=== PATIENT | male | born 1945 | race Caucasian/White ===

== ENCOUNTER → 2017-08-11 | Outpatient (CLI) | payer MEDICARE ==
[2017-08-11 13:18] LABS: Blood Urea Nitrogen 21 mg/dL (9-20); Non-African American GFR(MDRD) 55 (>60 ml/min/1.73 sqM)
--- NOTE | 2017-08-11 14:59 | CT ---
EXAMINATION TYPE: CT abdomen pelvis w con DATE OF EXAM: 08/11/2017 COMPARISON: NONE HISTORY: Patient complains of left flank pain. CT DLP: 1638 mGycm Automated exposure control for dose reduction was used. TECHNIQUE: Helical acquisition of images was performed from the lung bases through the pelvis. CONTRAST: Performed with Oral Contrast and with IV Contrast, patient injected with 80 mL of Visipaque 320. FINDINGS: LUNG BASES: Subpleural fat is present as well as linear pleural parenchymal scarring within the lingu la. LIVER/GB: Diffuse hypoattenuation of the hepatic parenchyma most commonly relates to hepatic steatosi s and limits evaluation for underlying hepatic masses. No discrete hepatic mass or intrahepatic bilia ry ductal dilatation is seen. PANCREAS: There is mild diffuse pancreatic atrophy without pancreatic ductal dilatation. SPLEEN: No significant abnormality is seen. Small splenule is present adjacent to the [place] spleen. Spleen measures 12.6 cm in craniocaudal dimension, within normal limits. ADRENALS: No significant abnormality is seen. KIDNEYS: No significant abnormality is seen. FREE AIR: No free air is visualized. RETROPERITONEAL ADENOPATHY: None visualized REPRODUCTIVE ORGANS: No significant abnormality is seen URINARY BLADDER: Urachal remnant is incidentally identified. Urinary bladder is otherwise unremarkab le. PELVIC ADENOPATHY: Mildly enlarged superficial inguinal lymph nodes are seen although they maintain normal fatty gabe measuring up to 1.2 cm on the left and 1.0 cm on the right OSSEOUS STRUCTURES: Multilevel moderate degenerative changes are appreciated the visualized thoracolu mbar spine. BOWEL: Scattered diverticula are seen within the colon without pericolonic fat stranding. Bowel is n ot enlarged. OTHER: Bilateral fat filled inguinal hernias are present. IMPRESSION: 1. NO CT FINDING TO CORRELATE WITH THE PATIENT'S LEFT-SIDED FLANK PAIN. 2. FEW SCATTERED COLONIC DIVERTICULA WITHOUT PERICOLONIC FAT STRANDING. 3. MILDLY ENLARGED NONSPECIFIC SUPERFICIAL INGUINAL LYMPH NODES OF LOW SUSPICION THEY MAINTAIN THE IR FATTY HILUM.
== END | disposition home or self-care (01) ==
LOC: RADCTMAIN 12:40
PROVIDERS: ATTEND Internal Medicine
DX: K57.30 Diverticulosis of large intestine without perforation or abscess without bleeding (principal)
CPT/HCPCS: 82565; 84520; 74177; 36415; Q9967

== ENCOUNTER → 2019-09-09 | Outpatient (CLI) | payer MEDICARE ==
--- NOTE | 2019-09-09 09:23 | US ---
EXAMINATION TYPE: US venous doppler duplex LE DATE OF EXAM: 09/09/2019 9:00 AM COMPARISON: NONE CLINICAL HISTORY: M79.661,R22.41,I82.40 DVT. SIDE PERFORMED: Bilateral TECHNIQUE: The lower extremity deep venous system is examined utilizing real time linear array sonog jayna with graded compression, doppler sonography and color-flow sonography. VESSELS IMAGED: External Iliac Vein (EIV) Common Femoral Vein Deep Femoral Vein Greater Saphenous Vein * Femoral Vein Popliteal Vein Small Saphenous Vein * Proximal Calf Veins (* superficial vessels) Large body habitus with extensive swelling Right Leg: Negative for DVT Left Leg: Negative for DVT IMPRESSION: No evidence for DVT at this time.
== END | disposition home or self-care (01) ==
LOC: RADUSWWP 08:04
PROVIDERS: ATTEND Internal Medicine
DX: M79.661 Pain in right lower leg (principal); R22.41 Localized swelling, mass and lump, right lower limb; I82.403 Acute embolism and thrombosis of unspecified deep veins of lower extremity, bilateral
CPT/HCPCS: 93970

== ENCOUNTER 2022-01-28 06:35 | Emergency (ER) | payer MEDICARE ==
[2022-01-28 06:39] VITALS: RESP 18; TEMP 99.8
[2022-01-28] MEDS ORDERED: ONDANSETRON 4 MG/2 ML VIAL IVP STA (06:53)
[2022-01-28] MEDS ORDERED: HYDROmorphone 0.5 MG/0.5 ML SYRINGE IVP STA ×2 (06:53→09:07)
[2022-01-28] MEDS ORDERED: methylPREDNISolone SOD SUCCI 125 MG/2 ML VIAL IV STA (06:53)
[2022-01-28] MEDS ORDERED: KETOROLAC 15 MG/ML 1 ML VIAL IVP STA (06:53)
--- NOTE | 2022-01-28 06:57 | ED ---
Extremity Problem HPI - General Chief complaint: Extremity Problem,Nontraumatic Stated complaint: RT leg pain and swelling Time Seen by Provider: 01/28/22 06:42 Source: patient, RN notes reviewed Mode of arrival: wheelchair Limitations: no limitations - History of Present Illness Initial comments: This a 76-year-old male presents emergency Department chief complaint of severe right foot pain. Patient states started Friday had grass mostly in to Friday till now. Patient states his pain is diffuse but originates at the first MTP region. Patient had prior foot surgery for gout in the past. Patient denies any trauma. Denies any open lesions or sores. Patient states that is very unbearable to touch it or put any weight on his right foot. Patient denies any paresthesias that are new. Patient denies fevers or chills. - Related Data Home Medications Medication Instructions Recorded Confirmed Aspirin EC [Ecotrin] 325 mg PO DAILY 06/20/16 01/28/22 Atorvastatin [Lipitor] 20 mg PO DAILY 06/20/16 01/28/22 Sertraline [Zoloft] 50 mg PO DAILY 06/20/16 01/28/22 Tamsulosin HCl [Flomax] 0.4 mg PO DAILY 06/20/16 01/28/22 atenoloL 25 mg PO BID 06/20/16 01/28/22 Insulin Detemir (Levemir) [Levemir] 46 unit SQ HS 10/24/21 01/28/22 Meloxicam [Mobic] 7.5 mg PO DAILY 10/24/21 01/28/22 Multivitamins, Thera [Multivitamin 1 tab PO DAILY 10/24/21 01/28/22 (formulary)] Quinapril HCl [Accupril] 5 mg PO DAILY 10/24/21 01/28/22 Triamterene-Hctz 37.5-25Mg 1 cap PO DAILY 10/24/21 01/28/22 [Dyazide 37.5-25 Capsule] Vascepa 1gm 2 gm PO BID 10/24/21 01/28/22 Vitamin E 400 unit PO DAILY 10/24/21 01/28/22 metFORMIN HCL ER [Glucophage XR] 500 mg PO BID 10/24/21 01/28/22 Dapagliflozin Propanediol [Farxiga] 10 mg PO DAILY 01/28/22 01/28/22 Levothyroxine Sodium [Synthroid] 150 mcg PO DAILY 01/28/22 01/28/22 Previous Rx's Medication Instructions Recorded Pantoprazole [Protonix] 40 mg PO DAILY #30 tablet. 08/08/16 Folic Acid 1 mg PO DAILY #0 tab 10/29/21 HYDROcodone/APAP 5-325MG [[place] 5] 1 each PO Q6HR PRN #12 tab 01/28/22 Allergies Allergy/AdvReac Type Severity Reaction Status Date / Time No Known Allergies Allergy Verified 01/28/22 06:39 Review of Systems ROS Statement: Those systems with pertinent positive or pertinent negative responses have been documented in the HPI. ROS Other: All systems not noted in ROS Statement are negative. Past Medical History Past Medical History: Coronary Artery Disease (CAD), Chest Pain / Angina, Dementia, Diabetes Mellitus, Deep Vein Thrombosis (DVT), GERD/Reflux, GI Bleed, Hyperlipidemia, Hypertension, Musculoskeletal Disorder, Neurologic Disorder, Pr ostate Disorder, Thyroid Disorder, Vascular Disorder Additional Past Medical History / Comment(s): Insulin-dependent diabetes mellitus, peripheral vascular disease, chronic sinus disease, gout, previous bouts of GI bleed, questionable history of multiple sclerosis although the patient has not demonstrated any neurologic deficits, obesity, hypothyroidism, hyperlipidemia Other HX: IDDM, pt told many yrs ago he had multiple sclerosis but has had no symptoms in years, PVD, sinus problems, gout, hematuria related to coumadin, GI bleed with transfusion r/t coumadin, cramps to bilateral lower legs frequently, DVT to L lower leg in 2005, BPH, hypothyroid, L arm fx in past. History of Any Multi-Drug Resistant Organisms: None Reported Past Surgical History: Back Surgery, Heart Catheterization With Stent, Orthopedic Surgery Additional Past Surgical History / Comment(s): 2001 cardiac cath with stent, EGD/colonoscopy with benign polyps, hemorrhoid surgery x 2, low back surgery, implants bilateral great toes, L knee arthroscopy, R finger amp 1st joint. Past Anesthesia/Blood Transfusion Reactions: No Reported Reaction Additional Past Anesthesia/Blood Transfusion Reaction / Comment(s): Pt has received blood in past without reaction. Date of Last Stent Placement:: 2001 Past Psychological History: Anxiety, Depression Smoking Status: Current every day smoker Past Alcohol Use History: Occasional Past Drug Use History: None Reported - Past Family History Father Family Medical History: No Reported History Additional Family Medical History / Comment(s): Thierry due to a fall when he was 56 yrs old. Mother Family Medical History: Dementia Additional Family Medical History / Comment(s): Mother lived to be 99yrs old. General Exam General appearance: alert, in no apparent distress Head exam: Present: atraumatic, normocephalic, normal inspection Neck exam: Present: normal inspection. Absent: tenderness, meningismus, lymphadenopathy Respiratory exam: Present: normal lung sounds bilaterally. Absent: respiratory distress, wheezes, rales, rhonchi, stridor Cardiovascular Exam: Present: regular rate, normal rhythm, normal heart sounds. Absent: systolic murmur, diastolic murmur, rubs, gallop, clicks Extremities exam: Present: other (Right foot there is diffuse tenderness, greatest with the first MTP region there is old surgical scar noted, neurovascular intact there is old male avulsion of the first digit, mild increasing warmth mild erythema). Absent: calf tenderness Neurological exam: Present: alert Skin exam: Present: warm, dry, intact, normal color. Absent: rash Course Vital Signs 01/28/22 01/28/22 06:37 09:00 Temperature 99.8 F H Pulse Rate 98 92 Respiratory 18 18 Rate Blood Pressure 129/67 117/54 O2 Sat by Pulse 98 94 L Oximetry Medical Decision Making - Medical Decision Making 76-year-old presented for fall pain. There was concern for infection versus gout or other causes for pain. I did have. Labs and x-ray. There is not an elevated uric acid, there is no obvious signs of infection though patient did guerra ve continuous pain I did contact orthopedics on-call who came and evaluated the patient and feel that he has Charcot foot from being a diabetic. They felt that there was not much offer for and they do not feel this is related to an infection. I did offer patient admission for pain control and further evaluation patient states first go home who provided foot surgery and does not remember his prior foot surgeon. - Lab Data Result diagrams: 01/28/22 07:03 01/28/22 07:03 Lab Results 01/28/22 01/28/22 Range/Units 07:03 07:03 WBC 11.5 H (3.8-10.6) k/uL RBC 6.00 H (4.30-5.90) m/uL Hgb 17.0 (13.0-17.5) gm/dL Hct 51.4 (39.0-53.0) % MCV 85.7 (80.0-100.0) fL MCH 28.4 (25.0-35.0) pg MCHC 33.1 (31.0-37.0) g/dL RDW 14.7 (11.5-15.5) % Plt Count 157 (150-450) k/uL MPV 9.3 Neutrophils % 80 % Lymphocytes % 11 % Monocytes % 7 % Eosinophils % 1 % Basophils % 0 % Neutrophils # 9.1 H (1.3-7.7) k/uL Lymphocytes # 1.3 (1.0-4.8) k/uL Monocytes # 0.7 (0-1.0) k/uL Eosinophils # 0.1 (0-0.7) k/uL Basophils # 0.0 (0-0.2) k/uL ESR 12 (0-15) mm/hr Sodium 136 L (137-145) mmol/L Potassium 4.1 (3.5-5.1) mmol/L Chloride 105 (98-107) mmol/L Carbon Dioxide 18 L (22-30) mmol/L Anion Gap 13 mmol/L BUN 27 H (9-20) mg/dL Creatinine 1.33 H (0.66-1.25) mg/dL Est GFR (CKD-EPI)AfAm 60 (>60 ml/min/1.73 sqM) Est GFR (CKD-EPI)NonAf 52 (>60 ml/min/1.73 sqM) Glucose 172 H (74-99) mg/dL Uric Acid 8.1 (3.5-8.5) mg/dL Calcium 9.6 (8.4-10.2) mg/dL Total Bilirubin 1.1 (0.2-1.3) mg/dL AST 28 (17-59) U/L ALT 21 (4-49) U/L Alkaline Phosphatase 129 H (38-126) U/L C-Reactive Protein 7.7 H (<1.0) mg/dL Total Protein 7.4 (6.3-8.2) g/dL Albumin 4.3 (3.5-5.0) g/dL Disposition Clinical Impression: Charcot's joint of foot, Foot pain Disposition: HOME SELF-CARE Condition: Stable Instructions (If sedation given, give patient instructions): Arthralgia (ED) Additional Instructions: Please return to the Emergency Department if symptoms worsen or any other concerns. Prescriptions: HYDROcodone/APAP 5-325MG [[place] 5] 1 each PO Q6HR PRN #12 tab PRN Reason: Pain Is patient prescribed a controlled substance at d/c from ED?: Yes When asked, does pt state using other controlled substances?: No If prescribed controlled substance>3 days was MAPS reviewed?: Prescribed <3 Days If opioid is for acute pain is fill amount 7 days or less?: Yes If Rx opioid, was Start Talking consent form obtained?: Yes Referrals: Neri Garg MD [Primary Care Provider] - 1-2 days Charli Ramos DPM [Doctor of Osteopathic Medicine] - 1-2 days Time of Disposition: 10:28
[2022-01-28 07:19] LABS: Basophils % (A) 0 %; Eosinophils # (A) 0.1 k/uL (0-0.7); Eosinophils % (A) 1 %; HCT 51.4 % (39.0-53.0); Lymphocytes # (A) 1.3 k/uL (1.0-4.8); Lymphocytes % (A) 11 %; MCH 28.4 pg (25.0-35.0); MCHC 33.1 g/dL (31.0-37.0); MCV 85.7 fL (80.0-100.0); Mean Platelet Volume 9.3; Monocytes # (A) 0.7 k/uL (0-1.0); Monocytes % (A) 7 %; Neutrophils # (A) 9.1 k/uL (1.3-7.7); Neutrophils % (A) 80 %; Platelet Count 157 k/uL (150-450); RDW 14.7 % (11.5-15.5); WBC 11.5 k/uL (3.8-10.6)
[2022-01-28 07:22] LABS: Albumin 4.3 g/dL (3.5-5.0); Calcium 9.6 mg/dL (8.4-10.2); Potassium 4.1 mmol/L (3.5-5.1); Total Bilirubin 1.1 mg/dL (0.2-1.3); Total Protein 7.4 g/dL (6.3-8.2); Uric Acid 8.1 mg/dL (3.5-8.5)
[2022-01-28 08:08] LABS: Erythrocyte Sedimentation Rate 12 mm/hr (0-15)
--- NOTE | 2022-01-28 08:11 | XR ---
EXAMINATION TYPE: XR foot complete RT DATE OF EXAM: 01/28/2022 COMPARISON: NONE HISTORY: 76-year-old male plantar foot pain radiating posteriorly to the ankle and calf. TECHNIQUE: 3 views FINDINGS: Prosthesis at the first MTP joint noted. No significant periprosthetic lucency. Helton's toe. Osteope kaylee. Large os peroneum. There is small plantar heel spur with some subtle calcifications noted at the origin of the plantar f ascia. It is ossification at the distal Achilles tendon measuring 2.6 x 0.4 cm. No acute fracture, subluxation, dislocation. IMPRESSION: 1. Some faint calcifications at the origin of the plantar fascia probably reflecting chronic traction injury or plantar fasciitis. Clinically correlate. 2. Additional ossification at the distal Achilles tendon measuring 2.6 x 0.4 cm. Findings compatible with chronic tendinopathy and likely previous partial tear. 3. First MTP joint prosthesis noted. 4. No acute osseous abnormality seen.
[2022-01-28 08:44] LABS: C Reactive Protein 7.7 mg/dL (<1.0)
[2022-01-28 09:07] VITALS: PULSE 92
[2022-01-28] MEDS ORDERED: predniSONE 20 MG TAB PO STA (11:25)
[2022-01-28] MEDS ORDERED: HYDROcodone/APAP 5-325MG 1 EACH TAB PO STA (11:28)
[2022-01-28 12:21] VITALS: BP 122/55
--- NOTE | 2022-01-28 12:59 | P.CONS ---
History of Present Illness - Reason for Consult Consult date: 01/28/22 foot pain Requesting physician: Maximilian Arias - Chief Complaint foot pain - History of Present Illness Patient is a 76 yo CM with a hx of DM 2, MS, and Gout who presented to the emergency department with complaints of right foot pain. His foot pain started on Friday and worsened over the weeked. He has not started of stopped any medications recently. He has a significant hx of gout and has required surgery for this in the past about 20 years ago. Has not been ambulating due to pain. No fevers or chills. His surgars have been 150-170s but rellatively well. He denies any hx of metal in his foot. He deneis any recent injury to the foot. Gen: Alert, distress only when touching the foot, CV: S1S2 reg wtihout murmur Lungs: CTA b/L Ext: right foot with edema, erythem at the MTP joint of the great toe dorsal plae. Intact light touch, able to flex and extend toes without difficulty, range of motion intact at that ankle joint. Patient extremity painful to the lgihtest touch at any location on the foot. Calf without warmth or erythema. Case reviewed and discussed with primary care physician Dr. Garg prior to evaluating the patient. Assessment: Gout DM MS Neuropathy Discussed with patient and family member at bedside that this seems like a gout flair to me. At this time a suggest an additional dose of steroid primry to leaving the ED and a course of NSAIDs (Cholacine ) and follow-up with PCP later this week. Discussed with ED provider and suggest possible crutches if too painful to ambulate. They have also suggested follow-up with Dr. Ramos of Podiatry. PAtient was also evaluated by ortho in the ED who agreed with probable gout or charcot foot. Past Medical History Past Medical History: Coronary Artery Disease (CAD), Chest Pain / Angina, Dementia, Diabetes Mellitus, Deep Vein Thrombosis (DVT), GERD/Reflux, GI Bleed, Hyperlipidemia, Hypertension, Musculoskeletal Disorder, Neurologic Disorder, Prostate Disorder, Thyroid Disorder, Vascular Disorder Additional Past Medical History / Comment(s): Insulin-dependent diabetes mellitus, peripheral vascular disease, chronic sinus disease, gout, previous bouts of GI bleed, questionable history of multiple sclerosis although the patient has not demonstrated any neurologic deficits, obesity, hypothyroidism, hyperlipidemia Other HX: IDDM, pt told many yrs ago he had multiple sclerosis but has had no symptoms in years, PVD, sinus problems, gout, hematuria related to coumadin, GI bleed with transfusion r/t coumadin, cramps to bilateral lower legs frequently, DVT to L lower leg in 2005, BPH, hypothyroid, L arm fx in past. History of Any Multi-Drug Resistant Organisms: None Reported Past Surgical History: Back Surgery, Heart Catheterization With Stent, Orthopedic Surgery Additional Past Surgical History / Comment(s): 2001 cardiac cath with stent, EGD/colonoscopy with benign polyps, hemorrhoid surgery x 2, low back surgery, implants bilateral great toes, L knee arthroscopy, R finger amp 1st joint. Past Anesthesia/Blood Transfusion Reactions: No Reported Reaction Additional Past Anesthesia/Blood Transfusion Reaction / Comm: Pt has received blood in past without reaction. Date of Last Stent Placement:: 2001 Past Psychological History: Anxiety, Depression Smoking Status: Current every day smoker Past Alcohol Use History: Occasional Past Drug Use History: None Reported - Past Family History Father Family Medical History: No Reported History Additional Family Medical History / Comment(s): Thierry due to a fall when he was 56 yrs old. Mother Family Medical History: Dementia Additional Family Medical History / Comment(s): Mother lived to be 99yrs old. Medications and Allergies Home Medications Medication Instructions Recorded Confirmed Type Aspirin EC [Ecotrin] 325 mg PO DAILY 06/20/16 01/28/22 History Atorvastatin [Lipitor] 20 mg PO DAILY 06/20/16 01/28/22 History Sertraline [Zoloft] 50 mg PO DAILY 06/20/16 01/28/22 History Tamsulosin HCl [Flomax] 0.4 mg PO DAILY 06/20/16 01/28/22 History atenoloL 25 mg PO BID 06/20/16 01/28/22 History Pantoprazole [Protonix] 40 mg PO DAILY #30 tablet. 08/08/16 01/28/22 Rx Insulin Detemir (Levemir) [Levemir] 46 unit SQ HS 10/24/21 01/28/22 History Meloxicam [Mobic] 7.5 mg PO DAILY 10/24/21 01/28/22 History Multivitamins, Thera [Multivitamin 1 tab PO DAILY 10/24/21 01/28/22 History (formulary)] Quinapril HCl [Accupril] 5 mg PO DAILY 10/24/21 01/28/22 History Triamterene-Hctz 37.5-25Mg 1 cap PO DAILY 10/24/21 01/28/22 History [Dyazide 37.5-25 Capsule] Vascepa 1gm 2 gm PO BID 10/24/21 01/28/22 History Vitamin E 400 unit PO DAILY 10/24/21 01/28/22 History metFORMIN HCL ER [Glucophage XR] 500 mg PO BID 10/24/21 01/28/22 History Folic Acid 1 mg PO DAILY #0 tab 10/29/21 01/28/22 Rx Dapagliflozin Propanediol [Farxiga] 10 mg PO DAILY 01/28/22 01/28/22 History HYDROcodone/APAP 5-325MG [[place] 5] 1 each PO Q6HR PRN #12 tab 01/28/22 Rx Levothyroxine Sodium [Synthroid] 150 mcg PO DAILY 01/28/22 01/28/22 History Allergies Allergy/AdvReac Type Severity Reaction Status Date / Time No Known Allergies Allergy Verified 01/28/22 06:39 Physical Exam Osteopathic Statement: *. No significant issues noted on an osteopathic structural exam other than those noted in the History and Physical/Consult. Vitals: Vital Signs Temp Pulse Resp BP Pulse Ox 01/28/22 09:00 92 18 117/54 94 L 01/28/22 06:37 99.8 F H 98 18 129/67 98 Intake and Output 01/27/22 01/28/22 01/28/22 22:59 06:59 14:59 Other: Weight 100.698 kg Results CBC & Chem 7: 01/28/22 07:03 01/28/22 07:03 Labs: Abnormal Lab Results - Last 24 Hours (Table) 01/28/22 01/28/22 Range/Units 07:03 07:03 WBC 11.5 H (3.8-10.6) k/uL RBC 6.00 H (4.30-5.90) m/uL Neutrophils # 9.1 H (1.3-7.7) k/uL Sodium 136 L (137-145) mmol/L Carbon Dioxide 18 L (22-30) mmol/L BUN 27 H (9-20) mg/dL Creatinine 1.33 H (0.66-1.25) mg/dL Glucose 172 H (74-99) mg/dL Alkaline Phosphatase 129 H (38-126) U/L C-Reactive Protein 7.7 H (<1.0) mg/dL
== END 2022-01-28 11:55 | disposition home or self-care (01) ==
LOC: EC 06:35
DX: E11.610 Type 2 diabetes mellitus with diabetic neuropathic arthropathy (principal); E11.51 Type 2 diabetes mellitus with diabetic peripheral angiopathy without gangrene; I10 Essential (primary) hypertension; E78.5 Hyperlipidemia, unspecified; I25.10 Atherosclerotic heart disease of native coronary artery without angina pectoris; K21.9 Gastro-esophageal reflux disease without esophagitis; F03.90 Unspecified dementia, unspecified severity, without behavioral disturbance, psychotic disturbance, mood disturbance, and anxiety; E03.9 Hypothyroidism, unspecified; F32.A Depression, unspecified; F41.9 Anxiety disorder, unspecified; F17.200 Nicotine dependence, unspecified, uncomplicated; Z79.84 Long term (current) use of oral hypoglycemic drugs; Z79.4 Long term (current) use of insulin; Z79.82 Long term (current) use of aspirin; Z79.890 Hormone replacement therapy; Z79.899 Other long term (current) drug therapy
CPT/HCPCS: 36415; 80053; 85652; 84550; 85025; 86140; 73630; 99283; 96374; 96375 ×3; 96376; J2930; J2405; J1885; J7512; J1170

== ENCOUNTER 2022-07-12 19:18 | Inpatient (IN) | payer MEDICARE ==
[2022-07-12] MEDS ORDERED: SODIUM CHLORIDE 0.9% 1,000 ML IV STA ×2 (19:34→20:37)
--- NOTE | 2022-07-12 19:47 | ED ---
General Adult HPI - General Stated complaint: weakness Time Seen by Provider: 07/12/22 19:20 Source: RN notes reviewed Mode of arrival: EMS - History of Present Illness Initial comments: This is a 76-year-old male with multiple comorbidities who presents to the emergency department from home for evaluation of increased weakness. Patient states he was unable to get out of the chair at home this afternoon due to weakness and shortness of breath. Patient arrives wearing oxygen via nasal cannula at 2 L as placed per EMS. He was also given 4mg Zofran prior to arrival. States he is feeling somewhat improved upon arrival. Patient endorses decreased appetite and reduced oral intake x2-3 days. Accucheck per EMS 250s. Family noted that patient's abdomen is distended and they are worried about a hernia. Denies pain upon arrival. No known sick exposures. No fever, chills, headache, dizziness, sore throat, cough, chest pain, dysuria, back pain, or lower extremity edema. - Related Data Home Medications Medication Instructions Recorded Confirmed Aspirin EC [Ecotrin] 325 mg PO DAILY 06/20/16 07/12/22 Atorvastatin [Lipitor] 20 mg PO DAILY 06/20/16 07/12/22 Sertraline [Zoloft] 50 mg PO DAILY 06/20/16 07/12/22 Tamsulosin HCl [Flomax] 0.4 mg PO DAILY 06/20/16 07/12/22 atenoloL 25 mg PO BID 06/20/16 07/12/22 Quinapril HCl [Accupril] 5 mg PO DAILY 10/24/21 07/12/22 Triamterene-Hctz 37.5-25Mg 1 cap PO DAILY 10/24/21 07/12/22 [Dyazide 37.5-25 Capsule] metFORMIN HCL ER [Glucophage XR] 500 mg PO BID 10/24/21 07/12/22 Dapagliflozin Propanediol [Farxiga] 10 mg PO DAILY 01/28/22 07/12/22 Levothyroxine Sodium [Synthroid] 150 mcg PO DAILY 01/28/22 07/12/22 Colchicine 0.6 mg PO DAILY 07/12/22 07/12/22 Insulin Detemir [Levemir Flextouch 42 units SQ HS 07/12/22 07/12/22 Pen] icosapent ethyL [Icosapent Ethyl] 2 gm PO BID 07/12/22 07/12/22 Previous Rx's Medication Instructions Recorded Pantoprazole [Protonix] 40 mg PO DAILY #30 tablet. 08/08/16 Allergies Allergy/AdvReac Type Severity Reaction Status Date / Time No Known Allergies Allergy Verified 07/12/22 21:44 Review of Systems ROS Statement: Those systems with pertinent positive or pertinent negative responses have been documented in the HPI. ROS Other: All systems not noted in ROS Statement are negative. Past Medical History Past Medical History: Coronary Artery Disease (CAD), Chest Pain / Angina, Dementia, Diabetes Mellitus, Deep Vein Thrombosis (DVT), GERD/Reflux, GI Bleed, Hyperlipidemia, Hypertension, Musculoskeletal Disorder, Neurologic Disorder, Prostate Disorder, Thyroid Disorder, Vascular Disorder Additional Past Medical History / Comment(s): Insulin-dependent diabetes mellitus, peripheral vascular disease, chronic sinus disease, gout, previous bouts of GI bleed, questionable history of multiple sclerosis although the patient has not demonstrated any neurologic deficits, obesity, hypothyroidism, hyperlipidemia Other HX: IDDM, pt told many yrs ago he had multiple sclerosis but has had no symptoms in years, PVD, sinus problems, gout, hematuria related to coumadin, GI bleed with transfusion r/t coumadin, cramps to bilateral lower legs frequently, DVT to L lower leg in 2005, BPH, hypothyroid, L arm fx in past. History of Any Multi-Drug Resistant Organisms: None Reported Past Surgical History: Back Surgery, Heart Catheterization With Stent, Orthopedic Surgery Additional Past Surgical History / Comment(s): 2001 cardiac cath with stent, EGD/colonoscopy with benign polyps, hemorrhoid surgery x 2, low back surgery, implants bilateral great toes, L knee arthroscopy, R finger amp 1st joint. Past Anesthesia/Blood Transfusion Reactions: No Reported Reaction Additional Past Anesthesia/Blood Transfusion Reaction / Comment(s): Pt has received blood in past without reaction. Date of Last Stent Placement:: 2001 Past Psychological History: Anxiety, Depression Smoking Status: Current every day smoker Past Alcohol Use History: Occasional Past Drug Use History: None Reported - Past Family History Father Family Medical History: No Reported History Additional Family Medical History / Comment(s): Thierry due to a fall when he was 56 yrs old. Mother Family Medical History: Dementia Additional Family Medical History / Comment(s): Mother lived to be 99yrs old. General Exam Limitations: no limitations General appearance: alert, in no apparent distress (Ill-appearing male in no acute distress. ) ENT exam: Present: mucous membranes dry Neck exam: Present: normal inspection, full ROM. Absent: lymphadenopathy Respiratory exam: Present: normal lung sounds bilaterally, other (removed from nasal cannula- pulse ox dropped to 90%-93%). Absent: respiratory distress, wheezes, rales, rhonchi, stridor Cardiovascular Exam: Present: normal rhythm, tachycardia, normal heart sounds GI/Abdominal exam: Present: distended, normal bowel sounds, other (endorses nausea and vomiting prior to arrival- given zofran per EMS). Absent: tenderness, guarding, rebound, rigid Extremities exam: Present: normal inspection, normal capillary refill. Absent: pedal edema Neurological exam: Present: alert, oriented X3 Psychiatric exam: Present: flat affect Course Vital Signs 07/12/22 07/12/22 07/12/22 19:33 21:07 23:07 Temperature 98.4 F Pulse Rate 105 H 114 H 110 H Respiratory 18 18 18 Rate Blood Pressure 139/77 123/58 117/67 O2 Sat by Pulse 93 L 94 L 94 L Oximetry - Reevaluation(s) Reevaluation #1: 07/12/22 20:01 Upon reassessment, patient complains of fleeting abdominal pain with no aggravating or alleviating factors. Pain medication ordered. CT after labs. 07/13/22 01:00 Discussed hospital admission with patient and he is agreeable with this plan of care. I spoke with Dr. Roman who accepts this patient. Medical Decision Making - Medical Decision Making This is a pleasant 76-year-old male with a history of CAD, diabetes, hypertension, GI bleeding, and chronic back pain who presents to the emergency department for evaluation of generalized weakness. Upon exam, patient is ill- appearing but in no acute distress. He is afebrile, mildly tachycardic (HR 105- 115), and room air sat 90%-94%. No focal neurological deficits. Lungs sounds are clear to auscultation. Abdomen is distended, though soft. Laboratory st udies were reviewed. Hemoglobin 17.9 and hematocrit 53.9 which are consistent with baseline. Elevated d-dimer at 3.65. Ongoing renal impairment BUN 34, creatinine 1.39. Liver enzymes are concerning AST 440, ALT 288, alk phos 281, and total bilirubin 5.2. CT chest was negative for PE. CT abdomen and pelvis shows no acute findings. Ultrasound of the right upper quadrant does show mild gallbladder wall thickening; the patient denies any abdominal pain. Patient required max two-person assist to stand for elimination. Given his abnormal labs and generalized weakness with concerns for safety at home, patient will be admitted to the hospital for further evaluation and treatment. Attending: Vanita. - Lab Data Result diagrams: 07/12/22 19:56 07/12/22 19:56 Lab Results 07/12/22 07/12/22 07/12/22 Range/Units 19:56 19:56 19:56 WBC 11.6 H (3.8-10.6) k/uL RBC 6.23 H (4.30-5.90) m/uL Hgb 17.9 H (13.0-17.5) gm/dL Hct 53.9 H (39.0-53.0) % MCV 86.6 (80.0-100.0) fL MCH 28.7 (25.0-35.0) pg MCHC 33.1 (31.0-37.0) g/dL RDW 14.8 (11.5-15.5) % Plt Count 128 L (150-450) k/uL MPV 9.5 Neutrophils % 94 % Lymphocytes % 2 % Monocytes % 2 % Eosinophils % 1 % Basophils % 0 % Neutrophils # 10.9 H (1.3-7.7) k/uL Lymphocytes # 0.3 L (1.0-4.8) k/uL Monocytes # 0.3 (0-1.0) k/uL Eosinophils # 0.1 (0-0.7) k/uL Basophils # 0.0 (0-0.2) k/uL PT 11.6 (9.0-12.0) sec INR 1.1 (<1.2) APTT 22.5 (22.0-30.0) sec D-Dimer (<0.60) mg/L FEU Sodium 137 (137-145) mmol/L Potassium 4.1 (3.5-5.1) mmol/L Chloride 101 (98-107) mmol/L Carbon Dioxide 20 L (22-30) mmol/L Anion Gap 16 mmol/L BUN 34 H (9-20) mg/dL Creatinine 1.39 H (0.66-1.25) mg/dL Est GFR (CKD-EPI)AfAm 56 (>60 ml/min/1.73 sqM) Est GFR (CKD-EPI)NonAf 49 (>60 ml/min/1.73 sqM) Glucose 190 H (74-99) mg/dL Plasma Lactic Acid Edison (0.7-2.0) mmol/L Calcium 9.4 (8.4-10.2) mg/dL Magnesium 1.7 (1.6-2.3) mg/dL Total Bilirubin 5.2 H (0.2-1.3) mg/dL AST 440 H (17-59) U/L ALT 288 H (4-49) U/L Alkaline Phosphatase 281 H (38-126) U/L Troponin I (0.000-0.034) ng/mL NT-Pro-B Natriuret Pep pg/mL Total Protein 6.9 (6.3-8.2) g/dL Albumin 4.3 (3.5-5.0) g/dL Urine Color Urine Appearance (Clear) Urine pH (5.0-8.0) Ur Specific [place] (1.001-1.035) Urine Protein (Negative) Urine Glucose (UA) (Negative) Urine Ketones (Negative) Urine Blood (Negative) Urine Nitrite (Negative) Urine Bilirubin (Negative) Urine Urobilinogen (<2.0) mg/dL Ur Leukocyte Esterase (Negative) Coronavirus (PCR) (Not Detectd) 07/12/22 07/12/22 07/12/22 Range/Units 19:56 19:56 19:56 WBC (3.8-10.6) k/uL RBC (4.30-5.90) m/uL Hgb (13.0-17.5) gm/dL Hct (39.0-53.0) % MCV (80.0-100.0) fL MCH (25.0-35.0) pg MCHC (31.0-37.0) g/dL RDW (11.5-15.5) % Plt Count (150-450) k/uL MPV Neutrophils % % Lymphocytes % % Monocytes % % Eosinophils % % Basophils % % Neutrophils # (1.3-7.7) k/uL Lymphocytes # (1.0-4.8) k/uL Monocytes # (0-1.0) k/uL Eosinophils # (0-0.7) k/uL Basophils # (0-0.2) k/uL PT (9.0-12.0) sec INR (<1.2) APTT (22.0-30.0) sec D-Dimer (<0.60) mg/L FEU Sodium (137-145) mmol/L Potassium (3.5-5.1) mmol/L Chloride (98-107) mmol/L Carbon Dioxide (22-30) mmol/L Anion Gap mmol/L BUN (9-20) mg/dL Creatinine (0.66-1.25) mg/dL Est GFR (CKD-EPI)AfAm (>60 ml/min/1.73 sqM) Est GFR (CKD-EPI)NonAf (>60 ml/min/1.73 sqM) Glucose (74-99) mg/dL Plasma Lactic Acid Edison 1.4 (0.7-2.0) mmol/L Calcium (8.4-10.2) mg/dL Magnesium (1.6-2.3) mg/dL Total Bilirubin (0.2-1.3) mg/dL AST (17-59) U/L ALT (4-49) U/L Alkaline Phosphatase (38-126) U/L Troponin I <0.012 (0.000-0.034) ng/mL NT-Pro-B Natriuret Pep 141 pg/mL Total Protein (6.3-8.2) g/dL Albumin (3.5-5.0) g/dL Urine Color Urine Appearance (Clear) Urine pH (5.0-8.0) Ur Specific [place] (1.001-1.035) Urine Protein (Negative) Urine Glucose (UA) (Negative) Urine Ketones (Negative) Urine Blood (Negative) Urine Nitrite (Negative) Urine Bilirubin (Negative) Urine Urobilinogen (<2.0) mg/dL Ur Leukocyte Esterase (Negative) Coronavirus (PCR) (Not Detectd) 07/12/22 07/12/22 07/12/22 Range/Units 19:56 20:02 21:30 WBC (3.8-10.6) k/uL RBC (4.30-5.90) m/uL Hgb (13.0-17.5) gm/dL Hct (39.0-53.0) % MCV (80.0-100.0) fL MCH (25.0-35.0) pg MCHC (31.0-37.0) g/dL RDW (11.5-15.5) % Plt Count (150-450) k/uL MPV Neutrophils % % Lymphocytes % % Monocytes % % Eosinophils % % Basophils % % Neutrophils # (1.3-7.7) k/uL Lymphocytes # (1.0-4.8) k/uL Monocytes # (0-1.0) k/uL Eosinophils # (0-0.7) k/uL Basophils # (0-0.2) k/uL PT (9.0-12.0) sec INR (<1.2) APTT (22.0-30.0) sec D-Dimer 3.65 H (<0.60) mg/L FEU Sodium (137-145) mmol/L Potassium (3.5-5.1) mmol/L Chloride (98-107) mmol/L Carbon Dioxide (22-30) mmol/L Anion Gap mmol/L BUN (9-20) mg/dL Creatinine (0.66-1.25) mg/dL Est GFR (CKD-EPI)AfAm (>60 ml/min/1.73 sqM) Est GFR (CKD-EPI)NonAf (>60 ml/min/1.73 sqM) Glucose (74-99) mg/dL Plasma Lactic Acid Edison (0.7-2.0) mmol/L Calcium (8.4-10.2) mg/dL Magnesium (1.6-2.3) mg/dL Total Bilirubin (0.2-1.3) mg/dL AST (17-59) U/L ALT (4-49) U/L Alkaline Phosphatase (38-126) U/L Troponin I (0.000-0.034) ng/mL NT-Pro-B Natriuret Pep pg/mL Total Protein (6.3-8.2) g/dL Albumin (3.5-5.0) g/dL Urine Color Yellow Urine Appearance Clear (Clear) Urine pH 5.5 (5.0-8.0) Ur Specific [place] 1.020 (1.001-1.035) Urine Protein Negative (Negative) Urine Glucose (UA) 4+ H (Negative) Urine Ketones Negative (Negative) Urine Blood Negative (Negative) Urine Nitrite Negative (Negative) Urine Bilirubin 1+ H (Negative) Urine Urobilinogen 4.0 (<2.0) mg/dL Ur Leukocyte Esterase Negative (Negative) Coronavirus (PCR) Not Detected (Not Detectd) - EKG Data EKG shows normal: sinus rhythm Rate: tachycardia EKG Comments: EKG obtained at 2000 shows sinus tachycardia with nonspecific T-wave abnormality. Ventricular rate 110, KS interval, QRS duration 86, QT/QTC 364/429. Interpretation abnormal rhythm ECG. - Radiology Data Radiology results: report reviewed, image reviewed Two-view chest x-ray was obtained. Report was reviewed in its entirety. Impression per Dr. Moeller is there is mild pleural reaction at the posterior lung bases. Normal heart. No heart failure. Ultrasound of the right upper quadrant was obtained. Report was reviewed in its entirety. Impression per Dr. Moeller is there is mild gallbladder wall thickening that could be cholecystitis. Limited exam. Right kidney shows no obstruction. No dilated ducts. No gallstones seen. CT of the abdomen and pelvis with contrast was obtained. Report was reviewed in its entirety. Impression per Dr. Moeller is there are a few large bowel dive rticula. No diverticulitis. No sign of acute abdomen and pelvis. No adverse change compared to old exam. CT of the chest was obtained. Report was reviewed in its entirety. Impression per Dr. Moeller is no evidence of pulmonary embolism. No suspicious pulmonary mass. There is some patchy atelectasis at the lung bases. No significant change compared to old exam. Disposition Clinical Impression: Generalized weakness, Elevated liver enzymes, Hypoxia Disposition: ADMITTED IP TO THIS HOSP Condition: Serious Decision Date: 07/13/22 Decision Time: 01:03
[2022-07-12] MEDS ORDERED: ONDANSETRON 4 MG/2 ML VIAL IVP STA (20:00)
[2022-07-12] MEDS ORDERED: HYDROmorphone 0.5 MG/0.5 ML SYRINGE IVP STA ×3 (20:01→23:02)
[2022-07-12 20:11] LABS: Basophils % (A) 0 %; Eosinophils # (A) 0.1 k/uL (0-0.7); Eosinophils % (A) 1 %; HCT 53.9 % (39.0-53.0); HGB 17.9 gm/dL (13.0-17.5); Lymphocytes # (A) 0.3 k/uL (1.0-4.8); Lymphocytes % (A) 2 %; MCH 28.7 pg (25.0-35.0); MCHC 33.1 g/dL (31.0-37.0); MCV 86.6 fL (80.0-100.0); Mean Platelet Volume 9.5; Monocytes # (A) 0.3 k/uL (0-1.0); Monocytes % (A) 2 %; Neutrophils # (A) 10.9 k/uL (1.3-7.7); Neutrophils % (A) 94 %; Platelet Count 128 k/uL (150-450); RBC 6.23 m/uL (4.30-5.90); RDW 14.8 % (11.5-15.5); WBC 11.6 k/uL (3.8-10.6)
[2022-07-12 20:19] LABS: INR 1.1 (<1.2); Partial Thromboplastin Time 22.5 sec (22.0-30.0); Prothrombin Time 11.6 sec (9.0-12.0)
[2022-07-12 20:22] LABS: Albumin 4.3 g/dL (3.5-5.0); Calcium 9.4 mg/dL (8.4-10.2); Magnesium 1.7 mg/dL (1.6-2.3); Potassium 4.1 mmol/L (3.5-5.1); Total Bilirubin 5.2 mg/dL (0.2-1.3); Total Protein 6.9 g/dL (6.3-8.2)
--- NOTE | 2022-07-12 20:41 | XR ---
EXAMINATION TYPE: XR chest 2V DATE OF EXAM: 07/12/2022 COMPARISON: 10/24/2021 HISTORY: Weakness TECHNIQUE: 2 views FINDINGS: Heart is normal. Lungs are clear. Consolidation there are no hilar masses. There is mild bl unting of the posterior costophrenic angles. There is spurring in the thoracic spine. IMPRESSION: There is mild pleural reaction at the posterior lung bases. Normal heart. No heart failur e.
[2022-07-12 22:31] LABS: Appearance,Urine Clear (Clear); Bilirubin,Urine 1+ (Negative); Blood,Urine Negative (Negative); Color,Urine Yellow; Glucose,Urine (UA) 4+ (Negative); Ketones,Urine Negative (Negative); Leukocyte Esterase,Urine Negative (Negative); Nitrite,Urine Negative (Negative); PH, Urine 5.5 (5.0-8.0); Protein,Urine Negative (Negative)
--- NOTE | 2022-07-12 23:04 | US ---
EXAMINATION TYPE: US abdomen limited DATE OF EXAM: 07/12/2022 COMPARISON: NONE CLINICAL HISTORY: RUQ pain. TECHNIQUE: Multiple sonographic images of the right upper quadrant are obtained. 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 Exam extremely limite d and technically difficult Pancreas: Obscured by bowel gas Liver: Limited views show increased attenuation and hepatomegaly Gallbladder: wall slightly thickened Evidence for sonographic Moya's sign: no CBD: wnl as seen Right Kidney: wnl as seen IMPRESSION: There is mild gallbladder wall thickening that could be cholecystitis. Limited exam. Right kidney jordy ws no obstruction. No dilated ducts. No gallstones seen.
--- NOTE | 2022-07-12 23:54 | CT ---
EXAMINATION TYPE: CT abdomen pelvis w con DATE OF EXAM: 07/12/2022 COMPARISON: 11/11/2016 HISTORY: shortness of breath, elevated d-dimer, suspect PE CT DLP: 997.95 mGycm Automated exposure control for dose reduction was used. CONTRAST: Performed with IV Contrast, patient injected with 80 mL of Isovue 370. Images obtained from the diaphragm to the floor the pelvis with the IV contrast. Lung bases show mild subsegmental atelectasis. Heart size is normal. No pericardial effusion. No pleu ral effusion. Liver spleen and stomach pancreas and gallbladder appear intact. There are some fatty replacement of the pancreas. No adrenal mass. Kidneys show satisfactory contrast opacification. The ureters are not dilated. No hydronephrosis. The bile ducts are not dilated. No retroperitoneal adenopathy. Bladder distends smoothly. No inguinal hernia. No free fluid in the pe lvis. No pelvic mass. There is no ascites or free air. No sign of a bowel obstruction. The lumbar girish tebrae have normal alignment. There is multilevel lumbar spondylotic changes. No compression fracture . There is multilevel lumbar hypertrophic facet arthropathy. The bony pelvis is intact. The hip joint s are intact. There is some acetabular spur formation at the hip joints. IMPRESSION: There are a few large bowel diverticula. No diverticulitis. No sign of acute abdomen and pelvis. No a dverse change compared to old exam.
--- NOTE | 2022-07-13 00:02 | CT ---
EXAMINATION TYPE: CT chest angio for PE DATE OF EXAM: 07/12/2022 COMPARISON: 04/16/2013 HISTORY: shortness of breath, elevated d-dimer, suspect PE CT DLP: 997.95 mGycm Automated exposure control for dose reduction was used. CONTRAST: Performed with IV Contrast, patient injected with 80 mL of Isovue 370. Images obtained from the thoracic inlet to the diaphragm with the IV contrast. There are Three-D post processed images. There is some patchy atelectasis at the lung bases. Heart size is normal. No pericardial effusion. No pleural effusion. There is no mediastinal adenopathy. There are no hilar masses. Thoracic aorta is intact. No aneurysm or dissection. There is normal contrast filling of the pulmonary arteries. No filling defect. The thoracic spine is intact. There is degenerative spur formation in the thoracic spine. No compress ion fracture. Sternum is intact. IMPRESSION: No evidence of pulmonary embolism. No suspicious pulmonary mass. There is some patchy atelectasis at the lung bases. No significant change compared to old exam.
[2022-07-13] MEDS ORDERED: ONDANSETRON 4 MG/2 ML VIAL IVP PRN (01:17)
[2022-07-13] MEDS ORDERED: ALPRAZolam 0.25 MG TAB PO PRN (01:17)
[2022-07-13] MEDS ORDERED: HYDROmorphone 0.5 MG/0.5 ML SYRINGE IVP PRN (01:17)
[2022-07-13] MEDS ORDERED: NALOXONE 0.4 MG/ML 1 ML VIAL IV PRN (01:17)
--- NOTE | 2022-07-13 06:44 | P.HPIM ---
History of Present Illness H&P Date: 07/13/22 Chief Complaint: generalized weakness 76 year old male with history of MS , CAD s/p stents , hypothyroid patient comes in from home, for concerns regarding generalized weakness. about 2 days ago , he suddenly was unable to get up from seated position, unable to stand up. he normally able to walk around using a cane or walker, or leaning against gordon. he admits to bumping against things a lot, but denies any falls or head injury. he denies any numbness or parasthsia , denies any changes in vision hearing or speech. he also reports repeated episodes of vomiting yesterday while in the ED. non bloodly non bilious. reports an associated right lower quadrant abd discomfort denies any GI bleeding or diarrhea. denies any fever chills. he denies any recent travel or hospitalization. patient was seen and discharged back in October , when he was admitted for sudden episode of lower extremity weakness , and was diagnosed with MS exacerbation. which he was diagnosed with 50 years ago, however, he does not recall this diagnosis , and denies having recurrent episodes of weakness related to that disease. inthe ED , CT of the abdomen showed diverticular disease without other acute pathology blood work showed elevated liver enzymes, chronic thrombocytopenia and CKD. abd US showed thickening of gall bladder wall with possible cholecystitis d dimer was elevated, CTA of the chest no acute pathology Review of Systems Pertinent positives as noted in HPI. All other systems were reviewed and are negative Past Medical History Past Medical History: Coronary Artery Disease (CAD), Chest Pain / Angina, Dementia, Diabetes Mellitus, Deep Vein Thrombosis (DVT), GERD/Reflux, GI Bleed, Hyperlipidemia, Hypertension, Musculoskeletal Disorder, Neurologic Disorder, Prostate Disorder, Thyroid Disorder, Vascular Disorder Additional Past Medical History / Comment(s): Insulin-dependent diabetes mellitus, peripheral vascular disease, chronic sinus disease, gout, previous beverley ts of GI bleed, questionable history of multiple sclerosis although the patient has not demonstrated any neurologic deficits, obesity, hypothyroidism, hyperlipidemia Other HX: IDDM, pt told many yrs ago he had multiple sclerosis but has had no symptoms in years, PVD, sinus problems, gout, hematuria related to coumadin, GI bleed with transfusion r/t coumadin, cramps to bilateral lower legs frequently, DVT to L lower leg in 2005, BPH, hypothyroid, L arm fx in past. History of Any Multi-Drug Resistant Organisms: None Reported Past Surgical History: Back Surgery, Heart Catheterization With Stent, Orthopedic Surgery Additional Past Surgical History / Comment(s): 2001 cardiac cath with stent, EGD/colonoscopy with benign polyps, hemorrhoid surgery x 2, low back surgery, implants bilateral great toes, L knee arthroscopy, R finger amp 1st joint. Past Anesthesia/Blood Transfusion Reactions: No Reported Reaction Additional Past Anesthesia/Blood Transfusion Reaction / Comment(s): Pt has received blood in past without reaction. Date of Last Stent Placement:: 2001 Past Psychological History: Anxiety, Depression Smoking Status: Current every day smoker Past Alcohol Use History: Occasional Past Drug Use History: None Reported - Past Family History Father Family Medical History: No Reported History Additional Family Medical History / Comment(s): Thierry due to a fall when he was 56 yrs old. Mother Family Medical History: Dementia Additional Family Medical History / Comment(s): Mother lived to be 99yrs old. Medications and Allergies Home Medications Medication Instructions Recorded Confirmed Type Aspirin EC [Ecotrin] 325 mg PO DAILY 06/20/16 07/12/22 History Atorvastatin [Lipitor] 20 mg PO DAILY 06/20/16 07/12/22 History Sertraline [Zoloft] 50 mg PO DAILY 06/20/16 07/12/22 History Tamsulosin HCl [Flomax] 0.4 mg PO DAILY 06/20/16 07/12/22 History atenoloL 25 mg PO BID 06/20/16 07/12/22 History Pantoprazole [Protonix] 40 mg PO DAILY #30 tablet. 08/08/16 07/12/22 Rx Quinapril HCl [Accupril] 5 mg PO DAILY 10/24/21 07/12/22 History Triamterene-Hctz 37.5-25Mg 1 cap PO DAILY 10/24/21 07/12/22 History [Dyazide 37.5-25 Capsule] metFORMIN HCL ER [Glucophage XR] 500 mg PO BID 10/24/21 07/12/22 History Dapagliflozin Propanediol [Farxiga] 10 mg PO DAILY 01/28/22 07/12/22 History Levothyroxine Sodium [Synthroid] 150 mcg PO DAILY 01/28/22 07/12/22 History Colchicine 0.6 mg PO DAILY 07/12/22 07/12/22 History Insulin Detemir [Levemir Flextouch 42 units SQ HS 07/12/22 07/12/22 History Pen] icosapent ethyL [Icosapent Ethyl] 2 gm PO BID 07/12/22 07/12/22 History Allergies Allergy/AdvReac Type Severity Reaction Status Date / Time No Known Allergies Allergy Verified 07/12/22 21:44 Physical Exam Vitals: Vital Signs Temp Pulse Resp BP Pulse Ox 07/12/22 23:07 110 H 18 117/67 94 L 07/12/22 21:07 114 H 18 123/58 94 L 07/12/22 19:33 98.4 F 105 H 18 139/77 93 L Intake and Output 07/12/22 07/12/22 07/13/22 14:59 22:59 06:59 Other: Weight 111.13 kg Constitutional: No acute distress, conversant, pleasant Eyes: tinge of jaundiced sclerae, moist conjunctiva, Pupils equal round reactive to light ENMT: NC/AT Oropharynx clear, no erythema, or exudates Neck: Supple, no masses, or JVD No carotid bruits No thyromegaly Lungs: Clear to auscultation Clear to percussion Normal respiratory effort, no accessory muscle use Cardiovascular: Heart regular in rate and rhythm, No murmurs, gallops, or rubs No peripheral edema Abdominal: tense abd wall muscles makes it difficult to exam tenderness over right flank and right lower quadrant , voluntary guarding, no rebound or rigidity Abdomen moving with respiration Normoactive bowel sounds No hepatomegaly, No splenomegaly No palpable mass abdominal wall hernia noted Skin: Normal temperature, tone, texture, turgor multiple scabs and abrasion over bilateral upper and lower extremities Extremities: No digital cyanosis No clubbing Pedal pulses intact and symmetrical Radial pulses intact and symmetrical No calf tenderness Psychiatric: Alert and oriented to person, place Appropriate affect fair judgement Neuro Muscles Strength 5/5 in bilateral upper extremities , and 4/5 right lower extremity and 5/5 over left lower extremity Sensation to light touch grossly present throughout Cranial nerves II-XII grossly intact No focal sensory deficits Lymphatics: no palpable cervical or supraclavicular , or inguinal lymph nodes Results CBC & Chem 7: 07/12/22 19:56 07/12/22 19:56 Labs: Abnormal Lab Results - Last 24 Hours (Table) 07/12/22 07/12/22 07/12/22 Range/Units 19:56 19:56 19:56 WBC 11.6 H (3.8-10.6) k/uL RBC 6.23 H (4.30-5.90) m/uL Hgb 17.9 H (13.0-17.5) gm/dL Hct 53.9 H (39.0-53.0) % Plt Count 128 L (150-450) k/uL Neutrophils # 10.9 H (1.3-7.7) k/uL Lymphocytes # 0.3 L (1.0-4.8) k/uL D-Dimer 3.65 H (<0.60) mg/L FEU Carbon Dioxide 20 L (22-30) mmol/L BUN 34 H (9-20) mg/dL Creatinine 1.39 H (0.66-1.25) mg/dL Glucose 190 H (74-99) mg/dL Total Bilirubin 5.2 H (0.2-1.3) mg/dL AST 440 H (17-59) U/L ALT 288 H (4-49) U/L Alkaline Phosphatase 281 H (38-126) U/L Urine Glucose (UA) (Negative) Urine Bilirubin (Negative) 07/12/22 Range/Units 21:30 WBC (3.8-10.6) k/uL RBC (4.30-5.90) m/uL Hgb (13.0-17.5) gm/dL Hct (39.0-53.0) % Plt Count (150-450) k/uL Neutrophils # (1.3-7.7) k/uL Lymphocytes # (1.0-4.8) k/uL D-Dimer (<0.60) mg/L FEU Carbon Dioxide (22-30) mmol/L BUN (9-20) mg/dL Creatinine (0.66-1.25) mg/dL Glucose (74-99) mg/dL Total Bilirubin (0.2-1.3) mg/dL AST (17-59) U/L ALT (4-49) U/L Alkaline Phosphatase (38-126) U/L Urine Glucose (UA) 4+ H (Negative) Urine Bilirubin 1+ H (Negative) Assessment and Plan Assessment: 76 year old male comes in with generalized weakness and inability to ambulate. with report of vomiting abd pain and dark urine. he has remote history of MS without frequent exacerbations, however was treated for an acute episode of MS exacerbation earlier this year. generalized weakness acute cholecystitis / cholangitis follow up cultures zosyn tid CT abd diverticular disease , no acute pathology abd US GB wall thickening , possible acute cholecystitis GI consult check hepatitis panel elevated liver enzymes IVF hydration with normal saline pain control monitor vital signs h/o MS rule out MS exacerbation reports sudden onset lower extremity weakness X 2 days PT eval fall precautions neuro consult elevated d dimer CTA negative for acute PE chronic conditions CKD , stable DM , resume home insulin regimen , insulin sliding scale hypertension, resume home meds hypothyroid , resume levothyroxine BPH CAD s/p stents thrombocytopenia full code DVT PPX heparin sc tid
[2022-07-13] MEDS: PIPERACILLIN-TAZOBACTAM 3.375 GM in SODIUM CHLORIDE 0.9% 100 ML IVPB SCH ×3 (09:05→22:56)
[2022-07-13] MEDS: TAMSULOSIN 0.4 MG CAP.ER.24H PO SCH (09:06)
[2022-07-13] MEDS: SERTRALINE 50 MG TAB PO SCH (09:06)
[2022-07-13] MEDS: atenoloL 25 MG TAB PO SCH ×2 (09:06→21:07)
[2022-07-13] MEDS: LEVOTHYROXINE 75 MCG TAB PO SCH (09:06)
[2022-07-13] MEDS: ASPIRIN 325 MG TAB PO SCH (09:06)
[2022-07-13] MEDS: lisinopriL 5 MG TAB PO SCH (09:06)
[2022-07-13] MEDS: PANTOPRAZOLE 40 MG TABLET PO SCH (09:06)
[2022-07-13] MEDS: INSULIN ASPART (NovoLOG) 100 UNIT/ML VIAL SQ SCH ×4 (09:07→21:07)
[2022-07-13] MEDS: DAPAGLIFLOZIN PROPANEDIOL 10 MG TABLET PO SCH (09:07)
[2022-07-13] MEDS: COLCHICINE 0.6 MG EACH PO SCH (09:07)
[2022-07-13] MEDS: TRIAMTERENE-HCTZ 37.5-25MG 1 EACH CAP PO SCH (09:08)
[2022-07-13] MEDS: SODIUM CHLORIDE 0.9% 1,000 ML IV SCH ×2 (09:08→16:09)
[2022-07-13 09:09] LABS: Glucose,Whole Blood 161 mg/dL (70-110)
--- NOTE | 2022-07-13 10:30 | P.PN ---
Progress Note - Text Progress Note Date: 07/13/22 Patient was seen. Patient reports bilateral flank pain worse on the right side. He continues reported generalized weakness. No nausea and vomiting today. Patient is in no acute distress. #Sepsis related to acute cholecystitis #Gram-negative bacteremia #Transaminitis #Elevated d-dimer #Generalized weakness Chronic conditions: history of multiple sclerosis, chronic kidney disease, diabetes mellitus, hypertension, hypothyroidism, BPH, history of CAD with stent Patient meets sepsis criteria given his leukocytosis, tachycardia and positive source of infection. Lactic acid negative. Gastroenterology is not available over the weekend and surgery will be consulted. Patient be continued on Zosyn. Follow blood cultures. Start telemetry monitoring. Continue normal saline at 75 mL per hour. Repeat blood culture tomorrow. CT AP and gallbladder ultrasound does not show any signs of obstruction. CT chest is ruled out PE. PT will be consulted to work with this patient. DVT prophylaxis: [Lovenox] Discussed with: [Patient and nursing] Anticipated discharge: [Depending on clinical course] Anticipated discharge place: [Home] A total of [30] minutes was spent on the care of this complex patient more than 50% of the time was spent in counseling and care coordination.
[2022-07-13 11:33] LABS: Glucose,Whole Blood 128 mg/dL (70-110)
[2022-07-13 13:08] LABS: Hepatitis A Antibody IgM Nonreactive (Nonreactive); Hepatitis B Core IgM Nonreactive (Nonreactive); Hepatitis B Surface Antigen Nonreactive (Nonreactive); Hepatitis C IgG Antibody Nonreactive (Nonreactive)
--- NOTE | 2022-07-13 15:38 | P.GSCN ---
History of Present Illness Consult date: 07/13/22 History of present illness: REASON FOR CONSULTATION: Cholecystitis HISTORY OF PRESENT ILLNESS: The patient is a 76-year-old male who was admitted to the hospital due to generalized weakness. An extensive diagnostic workup including CT of the abdomen and pelvis, CT chest, ultrasound the abdomen was obtained with questionable features of cholecystitis. Patient denies any right upper quadrant abdominal pain. He reports past history of right rib fractures. He is tolerating regular diet. He denies nausea or vomiting. On initial labs, LFTs were elevated. No repeat labs available at this time. General surgery is consulted for possible cholecystitis. PAST MEDICAL HISTORY: See list and reviewed PAST SURGICAL HISTORY: See list and reviewed MEDICATIONS: See list and reviewed ALLERGIES: See list and reviewed SOCIAL HISTORY: See list and reviewed FAMILY HISTORY: See list and reviewed REVIEW OF ORGAN SYSTEMS: CONSTITUTIONAL: Low-grade temperature 99.8 on admission. Has morbid obesity, BMI 39.5 EYES: Denies any trouble with vision. No glasses. HEENT: No difficulties with hearing. No nosebleeds. No difficulty swallowing. RESPIRATORY: History of rib fractures. CARDIOVASCULAR: Has hypertensive heart disease. Has hyperlipidemia. GASTROINTESTINAL: Has gastroesophageal reflux disease. GENITOURINARY: Denies any blood in urine or increased urinary frequency. NEUROLOGICAL: Denies any numbness or tingling along the distal extremities. No seizure disorders or headaches. MUSCULOSKELETAL: Has back pain, stiffness or joint arthritis. Has gout. SKIN: No current skin cancer. No rash. PSYCHIATRIC: Has depressive disorder. ENDOCRINE: Has hypothyroidism. Has insulin-dependent diabetes. Blood sugars over 200s. HEME/LYMPHATIC: Denies any lumps and bumps around the neck. No recent deep venous thrombosis. ALLERGY/IMMUNOLOGY: No immunoglobulin therapy. No immune deficiencies. BREAST: Denies current breast lumps, pain or nipple discharge. PHYSICAL EXAM: VITALS: Reviewed CONSTITUTIONAL: Well developed and in no acute distress. EYES: Conjuctivae without sclera icterus. Extraocular movements grossly intact. HEAD, EARS, NOSE, THROAT: Moist buccal mucosa. Head is atraumatic, normocephalic. Hears conversational speech. No nasal drainage. NECK: Supple. No JV distention. No thyroidomegaly. RESPIRATORY: Non-labored respirations and equal bilateral excursions. No gross wheezes. CARDIOVASCULAR: Palpable 2+ radial pulses. ABDOMEN: Protuberant. Diastased's recti. Nontender abdomen. No peritonitis. LYMPH: No neck lymphadenopathy. 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 SKIN: Warm and well perfused with good skin turgor. NEUROLOGIC: Cranial nerves II through XII grossly intact. No focal or lateralizing signs. PSYCH: Appropriate affect. Alert and oriented to person, place and time. Disp lays appropriate insight. CLINCAL LABS: Reviewed. LFTs elevated with total bilirubin 5.2. No repeat labs available. WBC 11.6 IMAGING: Independently reviewed. Ultrasound of the abdomen demonstrates no gallstones. Gallbladder wall at 3.5 mm. No pericholecystic fluid. This is my independent interpretation. CT of the abdomen and pelvis and the pelvic reviewed without bowel obstruction or free air or acute abdomen. This is my independent interpretation. RADIOLOGY: Report reviewed CT chest demonstrates no pulmonary embolism EKG: Sinus tachycardia with nonspecific T-wave abnormality ASSESSMENT: 1. Elevated LFTs 2. Generalized malaise 3. Abnormal ultrasound gallbladder PLAN: 1. IV fluid hydration. 2. Stat repeat of covering some metabolic panel with LFTs advised. 3. GI consultation place per admitting team 4. Clinically, he demonstrates no active symptoms of symptomatic cholecystitis. He denies abdominal pain. He is tolerating regular diet. No acute surgical intervention at this time ADVANCE DIRECTIVE: Thank you for this kind consultation. Past Medical History Past Medical History: Coronary Artery Disease (CAD), Chest Pain / Angina, Dementia, Diabetes Mellitus, Deep Vein Thrombosis (DVT), GERD/Reflux, GI Bleed, Hyperlipidemia, Hypertension, Musculoskeletal Disorder, Neurologic Disorder, Prostate Disorder, Thyroid Disorder, Vascular Disorder Additional Past Medical History / Comment(s): Insulin-dependent diabetes mellitus, peripheral vascular disease, chronic sinus disease, gout, previous bouts of GI bleed, questionable history of multiple sclerosis although the patient has not demonstrated any neurologic deficits, obesity, hypothyroidism, hyperlipidemia Other HX: IDDM, pt told many yrs ago he had multiple sclerosis but has had no symptoms in years, PVD, sinus problems, gout, hematuria related to coumadin, GI bleed with transfusion r/t coumadin, cramps to bilateral lower legs frequently, DVT to L lower leg in 2005, BPH, hypothyroid, L arm fx in past. History of Any Multi-Drug Resistant Organisms: None Reported Past Surgical History: Back Surgery, Heart Catheterization With Stent, Orthopedic Surgery Additional Past Surgical History / Comment(s): 2001 cardiac cath with stent, EGD/colonoscopy with benign polyps, hemorrhoid surgery x 2, low back surgery, implants bilateral great toes, L knee arthroscopy, R finger amp 1st joint. Past Anesthesia/Blood Transfusion Reactions: No Reported Reaction Additional Past Anesthesia/Blood Transfusion Reaction / Comm: Pt has received blood in past without reaction. Date of Last Stent Placement:: 2001 [facility] Past Psychological History: Anxiety, Depression Smoking Status: Current every day smoker Past Alcohol Use History: Occasional Past Drug Use History: None Reported - Past Family History Father Family Medical History: No Reported History Additional Family Medical History / Comment(s): Thierry due to a fall when he was 56 yrs old. Mother Family Medical History: Dementia Additional Family Medical History / Comment(s): Mother lived to be 99yrs old. Medications and Allergies Home Medications Medication Instructions Recorded Confirmed Type Aspirin EC [Ecotrin] 325 mg PO DAILY 06/20/16 07/12/22 History Atorvastatin [Lipitor] 20 mg PO DAILY 06/20/16 07/12/22 History Sertraline [Zoloft] 50 mg PO DAILY 06/20/16 07/12/22 History Tamsulosin HCl [Flomax] 0.4 mg PO DAILY 06/20/16 07/12/22 History atenoloL 25 mg PO BID 06/20/16 07/12/22 History Pantoprazole [Protonix] 40 mg PO DAILY #30 tablet. 08/08/16 07/12/22 Rx Quinapril HCl [Accupril] 5 mg PO DAILY 10/24/21 07/12/22 History Triamterene-Hctz 37.5-25Mg 1 cap PO DAILY 10/24/21 07/12/22 History [Dyazide 37.5-25 Capsule] metFORMIN HCL ER [Glucophage XR] 500 mg PO BID 10/24/21 07/12/22 History Dapagliflozin Propanediol [Farxiga] 10 mg PO DAILY 01/28/22 07/12/22 History Levothyroxine Sodium [Synthroid] 150 mcg PO DAILY 01/28/22 07/12/22 History Colchicine 0.6 mg PO DAILY 07/12/22 07/12/22 History Insulin Detemir [Levemir Flextouch 42 units SQ HS 07/12/22 07/12/22 History Pen] icosapent ethyL [Icosapent Ethyl] 2 gm PO BID 07/12/22 07/12/22 History Allergies Allergy/AdvReac Type Severity Reaction Status Date / Time No Known Allergies Allergy Verified 07/12/22 21:44 Surgical - Exam Vital Signs Temp Pulse Resp BP Pulse Ox 98.4 F 105 H 18 139/77 93 L 07/12/22 19:33 07/12/22 19:33 07/12/22 19:33 07/12/22 19:33 07/12/22 19:33 Results - Labs 07/12/22 19:56 07/12/22 19:56 Abnormal Lab Results - Last 24 Hours (Table) 07/12/22 07/12/22 07/12/22 Range/Units 19:56 19:56 19:56 WBC 11.6 H (3.8-10.6) k/uL RBC 6.23 H (4.30-5.90) m/uL Hgb 17.9 H (13.0-17.5) gm/dL Hct 53.9 H (39.0-53.0) % Plt Count 128 L (150-450) k/uL Neutrophils # 10.9 H (1.3-7.7) k/uL Lymphocytes # 0.3 L (1.0-4.8) k/uL D-Dimer 3.65 H (<0.60) mg/L FEU Carbon Dioxide 20 L (22-30) mmol/L BUN 34 H (9-20) mg/dL Creatinine 1.39 H (0.66-1.25) mg/dL Glucose 190 H (74-99) mg/dL POC Glucose (mg/dL) (70-110) mg/dL Total Bilirubin 5.2 H (0.2-1.3) mg/dL AST 440 H (17-59) U/L ALT 288 H (4-49) U/L Alkaline Phosphatase 281 H (38-126) U/L Urine Glucose (UA) (Negative) Urine Bilirubin (Negative) 07/12/22 07/13/22 07/13/22 Range/Units 21:30 09:03 11:31 WBC (3.8-10.6) k/uL RBC (4.30-5.90) m/uL Hgb (13.0-17.5) gm/dL Hct (39.0-53.0) % Plt Count (150-450) k/uL Neutrophils # (1.3-7.7) k/uL Lymphocytes # (1.0-4.8) k/uL D-Dimer (<0.60) mg/L FEU Carbon Dioxide (22-30) mmol/L BUN (9-20) mg/dL Creatinine (0.66-1.25) mg/dL Glucose (74-99) mg/dL POC Glucose (mg/dL) 161 H 128 H (70-110) mg/dL Total Bilirubin (0.2-1.3) mg/dL AST (17-59) U/L ALT (4-49) U/L Alkaline Phosphatase (38-126) U/L Urine Glucose (UA) 4+ H (Negative) Urine Bilirubin 1+ H (Negative) Microbiology - Last 24 Hours (Table) 07/12/22 20:00 Blood Culture Gram Stain - Preliminary Blood Blood Culture - Preliminary Escherichia coli 07/12/22 20:00 Blood Culture - Final Blood Diabetes panel 07/12/22 Range/Units 19:56 Sodium 137 (137-145) mmol/L Potassium 4.1 (3.5-5.1) mmol/L Chloride 101 (98-107) mmol/L Carbon Dioxide 20 L (22-30) mmol/L BUN 34 H (9-20) mg/dL Creatinine 1.39 H (0.66-1.25) mg/dL Glucose 190 H (74-99) mg/dL Calcium 9.4 (8.4-10.2) mg/dL AST 440 H (17-59) U/L ALT 288 H (4-49) U/L Alkaline Phosphatase 281 H (38-126) U/L Total Protein 6.9 (6.3-8.2) g/dL Albumin 4.3 (3.5-5.0) g/dL Calcium panel 07/12/22 Range/Units 19:56 Calcium 9.4 (8.4-10.2) mg/dL Albumin 4.3 (3.5-5.0) g/dL Pituitary panel 07/12/22 Range/Units 19:56 Sodium 137 (137-145) mmol/L Potassium 4.1 (3.5-5.1) mmol/L Chloride 101 (98-107) mmol/L Carbon Dioxide 20 L (22-30) mmol/L BUN 34 H (9-20) mg/dL Creatinine 1.39 H (0.66-1.25) mg/dL Glucose 190 H (74-99) mg/dL Calcium 9.4 (8.4-10.2) mg/dL Adrenal panel 07/12/22 Range/Units 19:56 Sodium 137 (137-145) mmol/L Potassium 4.1 (3.5-5.1) mmol/L Chloride 101 (98-107) mmol/L Carbon Dioxide 20 L (22-30) mmol/L BUN 34 H (9-20) mg/dL Creatinine 1.39 H (0.66-1.25) mg/dL Glucose 190 H (74-99) mg/dL Calcium 9.4 (8.4-10.2) mg/dL Total Bilirubin 5.2 H (0.2-1.3) mg/dL AST 440 H (17-59) U/L ALT 288 H (4-49) U/L Alkaline Phosphatase 281 H (38-126) U/L Total Protein 6.9 (6.3-8.2) g/dL Albumin 4.3 (3.5-5.0) g/dL
[2022-07-13 16:16] LABS: Albumin 3.2 g/dL (3.5-5.0); Calcium 8.9 mg/dL (8.4-10.2); Potassium 3.7 mmol/L (3.5-5.1); Total Bilirubin 4.3 mg/dL (0.2-1.3); Total Protein 5.6 g/dL (6.3-8.2)
[2022-07-13 16:17] LABS: Glucose,Whole Blood 131 mg/dL (70-110)
[2022-07-13 19:54] LABS: Glucose,Whole Blood 166 mg/dL (70-110)
[2022-07-13] MEDS: INSULIN DETEMIR (LEVEMIR) 100 UNIT/ML SYR SQ SCH (21:07)
[2022-07-14] MEDS: IBUPROFEN 400 MG TAB PO PRN (01:19)
[2022-07-14 06:37] LABS: Glucose,Whole Blood 86 mg/dL (70-110)
[2022-07-14] MEDS: LEVOTHYROXINE 75 MCG TAB PO SCH (06:50)
[2022-07-14] MEDS: INSULIN ASPART (NovoLOG) 100 UNIT/ML VIAL SQ SCH ×4 (06:51→20:58)
[2022-07-14 07:06] LABS: Calcium 8.7 mg/dL (8.4-10.2); Potassium 3.3 mmol/L (3.5-5.1)
[2022-07-14 07:10] LABS: Basophils % (A) 0 %; Eosinophils # (A) 0.1 k/uL (0-0.7); Eosinophils % (A) 1 %; HGB 15.3 gm/dL (13.0-17.5); Lymphocytes # (A) 0.5 k/uL (1.0-4.8); Lymphocytes % (A) 9 %; MCH 28.4 pg (25.0-35.0); MCHC 32.6 g/dL (31.0-37.0); MCV 87.1 fL (80.0-100.0); Mean Platelet Volume 10.2; Monocytes # (A) 0.3 k/uL (0-1.0); Monocytes % (A) 5 %; Neutrophils # (A) 4.9 k/uL (1.3-7.7); Neutrophils % (A) 84 %; Platelet Count 105 k/uL (150-450); RDW 14.8 % (11.5-15.5); WBC 5.8 k/uL (3.8-10.6)
[2022-07-14] MEDS: ASPIRIN 325 MG TAB PO SCH (07:51)
[2022-07-14] MEDS: SERTRALINE 50 MG TAB PO SCH (07:51)
[2022-07-14] MEDS: COLCHICINE 0.6 MG EACH PO SCH (07:51)
[2022-07-14] MEDS: TAMSULOSIN 0.4 MG CAP.ER.24H PO SCH (07:51)
[2022-07-14] MEDS: PIPERACILLIN-TAZOBACTAM 3.375 GM in SODIUM CHLORIDE 0.9% 100 ML IVPB SCH ×2 (07:51→15:53)
[2022-07-14] MEDS: PANTOPRAZOLE 40 MG TABLET PO SCH (07:52)
[2022-07-14] MEDS: DAPAGLIFLOZIN PROPANEDIOL 10 MG TABLET PO SCH (07:52)
[2022-07-14] MEDS: ENOXAPARIN 40 MG/0.4 ML SYRINGE SQ SCH (07:52)
[2022-07-14] MEDS: SODIUM CHLORIDE 0.9% 1,000 ML IV SCH ×2 (07:53→15:56)
[2022-07-14] MEDS: POTASSIUM CHLORIDE 10 MEQ in WATER FOR INJECTION 1 100ML.BAG IVPB SCH ×2 (09:10→09:45)
[2022-07-14] MEDS ORDERED: Potassium Replacement Protocol 1 EACH MISC MISCELLANE PRN (09:46)
[2022-07-14] MEDS: POTASSIUM CHLORIDE ER 20 MEQ TAB.ER PO SCH ×2 (10:22→11:15)
[2022-07-14] MEDS: lisinopriL 5 MG TAB PO SCH (10:24)
[2022-07-14] MEDS: atenoloL 25 MG TAB PO SCH ×2 (10:24→20:58)
[2022-07-14] MEDS: TRIAMTERENE-HCTZ 37.5-25MG 1 EACH CAP PO SCH (10:24)
--- NOTE | 2022-07-14 11:23 | P.PN ---
Subjective Progress Note Date: 07/14/22 Patient was seen and examined. No acute events overnight. Patient reports no abdominal pain. No nausea or vomiting. He has no complaints today. General: non toxic, no distress, appears at stated age Derm: warm, dry Head: atraumatic, normocephalic, symmetric Eyes: EOMI, no lid lag, anicteric sclera Mouth: no lip lesion, mucus membranes moist Cardiovascular: S1S2 reg, no murmur Lungs: CTA bilateral, no rhonchi, no rales , no accessory muscle use Abdominal: soft, nontender to palpation, no guarding, no appreciable organomegaly Ext: no gross muscle atrophy, no edema, no contractures Neuro: no focal neuro deficits Psych: Alert, oriented, appropriate affect #Sepsis related to acute cholecystitis #Gram-negative bacteremia #Hypokalemia #Transaminitis #Elevated d-dimer #Generalized weakness Chronic conditions: history of multiple sclerosis, chronic kidney disease, diabetes mellitus, hypertension, hypothyroidism, BPH, history of CAD with stent Patient meets sepsis criteria given his leukocytosis, tachycardia and positive source of infection. Lactic acid negative. Gastroenterology is not available over the weekend and surgery will be consulted. Patient be continued on Zosyn. Start telemetry monitoring. Continue normal saline at 75 mL per hour. Blood culture positive for E. coli. Repeat blood culture collected today. Consult infectious disease. Replace potassium and repeat BMP tomorrow morning. CT AP and gallbladder ultrasound does not show any signs of obstruction. CT chest is ruled out PE. PT will be consulted to work with this patient. DVT prophylaxis: Lovenox Discussed with: Patient and nursing Anticipated discharge: Depending on clinical course Objective - Vital Signs Vital signs: Vital Signs Temp 98.2 F 07/14/22 11:19 Pulse 80 07/14/22 11:19 Resp 18 07/14/22 11:19 BP 118/72 07/14/22 11:19 Pulse Ox 95 07/14/22 11:19 FiO2 Intake & Output 07/13/22 07/14/22 07/14/22 18:59 06:59 18:59 Intake Total 940 232 Balance 940 232 Weight 92 kg Intake: IV 10 Invasive Line 2 5 Invasive Line 3 5 Intake, IV Titration 700 Amount Piperacillin-Tazobactam 3 100 .375 gm In Sodium Chloride 0.9% 100 ml @ 25 mls/hr IVPB Q8HR [facility] Rx# :[id number] Sodium Chloride 0.9% 1, 600 000 ml @ 75 mls/hr IV . [id number] [facility] Rx#:[id number] Oral 240 222 Other: # Voids 1 1 - Labs CBC & Chem 7: 07/14/22 06:19 07/14/22 06:19 Labs: Abnormal Lab Results - Last 24 Hours (Table) 07/13/22 07/13/22 07/13/22 Range/Units 11:31 15:37 16:16 Plt Count (150-450) k/uL Lymphocytes # (1.0-4.8) k/uL Sodium 133 L (137-145) mmol/L Potassium (3.5-5.1) mmol/L Carbon Dioxide 20 L (22-30) mmol/L BUN 33 H (9-20) mg/dL Creatinine 1.55 H (0.66-1.25) mg/dL Glucose 143 H (74-99) mg/dL POC Glucose (mg/dL) 128 H 131 H (70-110) mg/dL Total Bilirubin 4.3 H (0.2-1.3) mg/dL AST 278 H (17-59) U/L ALT 283 H (4-49) U/L Alkaline Phosphatase 199 H (38-126) U/L Total Protein 5.6 L (6.3-8.2) g/dL Albumin 3.2 L (3.5-5.0) g/dL 07/13/22 07/14/22 07/14/22 Range/Units 19:53 06:19 06:19 Plt Count 105 L (150-450) k/uL Lymphocytes # 0.5 L (1.0-4.8) k/uL Sodium 136 L (137-145) mmol/L Potassium 3.3 L (3.5-5.1) mmol/L Carbon Dioxide 21 L (22-30) mmol/L BUN 34 H (9-20) mg/dL Creatinine 1.70 H (0.66-1.25) mg/dL Glucose (74-99) mg/dL POC Glucose (mg/dL) 166 H (70-110) mg/dL Total Bilirubin (0.2-1.3) mg/dL AST (17-59) U/L ALT (4-49) U/L Alkaline Phosphatase (38-126) U/L Total Protein (6.3-8.2) g/dL Albumin (3.5-5.0) g/dL Microbiology - Last 24 Hours (Table) 07/12/22 20:00 Blood Culture Gram Stain - Preliminary Blood Blood Culture - Preliminary Escherichia coli 07/12/22 19:45 Blood Culture - Preliminary Blood No Growth after 24 hours 07/12/22 20:00 Blood Culture - Final Blood
[2022-07-14 11:58] LABS: Glucose,Whole Blood 122 mg/dL (70-110)
--- NOTE | 2022-07-14 13:44 | P.PN ---
Subjective Progress Note Date: 07/14/22 CHIEF COMPLAINT: Cholecystitis HISTORY OF PRESENT ILLNESS: The patient is a 76-year-old male who was admitted for generalized weakness including elevated LFTs. Multiple diagnostic studies were performed with features of questionable cholecystitis. Patient is tolerating regular diet. Denies abdominal pain. He has mild intermittent temperatures. REVIEW OF ORGAN SYSTEMS: CONSTITUTIONAL: fever 100.1 and 24 hours. RESPIRATORY: History of rib fractures. CARDIOVASCULAR: Has hypertensive heart disease. Has hyperlipidemia. GASTROINTESTINAL: Has gastroesophageal reflux disease. PHYSICAL EXAM: VITALS: Reviewed CONSTITUTIONAL: Well developed and in no acute distress. EYES: Conjuctivae with sclera icterus. Extraocular movements grossly intact. HEAD, EARS, NOSE, THROAT: Moist buccal mucosa. Head is atraumatic, normocephalic. Hears conversational speech. No nasal drainage. RESPIRATORY: Non-labored respirations and equal bilateral excursions. No gross wheezes. CARDIOVASCULAR: Palpable 2+ radial pulses. ABDOMEN: Protuberant. Nontender abdomen. No peritonitis. 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 SKIN: Warm and well perfused with good skin turgor. NEUROLOGIC: Cranial nerves II through XII grossly intact. No focal or lateralizing signs. PSYCH: Appropriate affect. Alert and oriented to person, place and time. Displays appropriate insight. CLINCAL LABS: Reviewed. LFTs elevated with total bilirubin 5.2, now 4.1. WBC count 11.6-5.8. ASSESSMENT: 1. Elevated LFTs 2. Generalized malaise 3. Abnormal ultrasound gallbladder PLAN: 1. Clinically, he denies abdominal pain and is tolerating diet. 2. Await GI consultation 3. Recommend MRCP for elevated LFTs with equivocal ultrasound of the liver/gallbladder Objective - Vital Signs Vital signs: Vital Signs Temp 98.2 F 07/14/22 11:19 Pulse 80 07/14/22 11:19 Resp 18 07/14/22 11:19 BP 118/72 07/14/22 11:19 Pulse Ox 95 07/14/22 11:19 FiO2 Intake & Output 07/13/22 07/14/22 07/14/22 18:59 06:59 18:59 Intake Total 940 232 Balance 940 232 Weight 92 kg Intake: IV 10 Invasive Line 2 5 Invasive Line 3 5 Intake, IV Titration 700 Amount Piperacillin-Tazobactam 3 100 .375 gm In Sodium Chloride 0.9% 100 ml @ 25 mls/hr IVPB Q8HR [facility] Rx# :[id number] Sodium Chloride 0.9% 1, 600 000 ml @ 75 mls/hr IV . [id number] [facility] Rx#:[id number] Oral 240 222 Other: # Voids 1 1 - Labs CBC & Chem 7: 07/14/22 06:19 07/14/22 06:19 Labs: Abnormal Lab Results - Last 24 Hours (Table) 07/13/22 07/13/22 07/13/22 Range/Units 15:37 16:16 19:53 Plt Count (150-450) k/uL Lymphocytes # (1.0-4.8) k/uL Sodium 133 L (137-145) mmol/L Potassium (3.5-5.1) mmol/L Carbon Dioxide 20 L (22-30) mmol/L BUN 33 H (9-20) mg/dL Creatinine 1.55 H (0.66-1.25) mg/dL Glucose 143 H (74-99) mg/dL POC Glucose (mg/dL) 131 H 166 H (70-110) mg/dL Total Bilirubin 4.3 H (0.2-1.3) mg/dL AST 278 H (17-59) U/L ALT 283 H (4-49) U/L Alkaline Phosphatase 199 H (38-126) U/L Total Protein 5.6 L (6.3-8.2) g/dL Albumin 3.2 L (3.5-5.0) g/dL 07/14/22 07/14/22 07/14/22 Range/Units 06:19 06:19 11:49 Plt Count 105 L (150-450) k/uL Lymphocytes # 0.5 L (1.0-4.8) k/uL Sodium 136 L (137-145) mmol/L Potassium 3.3 L (3.5-5.1) mmol/L Carbon Dioxide 21 L (22-30) mmol/L BUN 34 H (9-20) mg/dL Creatinine 1.70 H (0.66-1.25) mg/dL Glucose (74-99) mg/dL POC Glucose (mg/dL) 122 H (70-110) mg/dL Total Bilirubin (0.2-1.3) mg/dL AST (17-59) U/L ALT (4-49) U/L Alkaline Phosphatase (38-126) U/L Total Protein (6.3-8.2) g/dL Albumin (3.5-5.0) g/dL Microbiology - Last 24 Hours (Table) 07/12/22 20:00 Blood Culture Gram Stain - Preliminary Blood Blood Culture - Preliminary Escherichia coli 07/12/22 19:45 Blood Culture - Preliminary Blood No Growth after 24 hours
[2022-07-14 16:51] LABS: Glucose,Whole Blood 153 mg/dL (70-110)
[2022-07-14 20:06] LABS: Glucose,Whole Blood 164 mg/dL (70-110)
[2022-07-14] MEDS: INSULIN DETEMIR (LEVEMIR) 100 UNIT/ML SYR SQ SCH (20:59)
--- NOTE | 2022-07-14 22:31 | P.CONS ---
History of Present Illness - Reason for Consult Consult date: 07/14/22 Cholecystitis and gram-negative bacteremia Requesting physician: Lindsey Teixeira - Chief Complaint Vomiting and weakness x one day - History of Present Illness Patient is a 76-year male presenting to the hospital 2 days ago for evaluation of generalized weakness unable to stand up feeling weak nausea and vomiting and some right upper quadrant abdominal pain in this patient symptom has been going on for about 2 days before presentation to the hospital patient denies any diarrhea or constipation denies any chest pain or shortness of breath or cough no URI symptoms on presentation to the hospital the patient was initially afebrile he did spike a fever of 100.1 degrees for right around 4 this morning patient did have a white count of 11.6 with a left shift kidney function has been slightly elevated patient did have elevated liver enzymes with a bilirubin of 4.3 AST 278 ALT is 283 urine has been negative COVID testing was negative hepatitis panel was negative patient did have blood cultures which is growing E. coli patient did have a CT of abdominal pelvis gallbladder intact CBD not dilated few large bowel diverticula no diverticulitis patient did have a CT angiogram of the chest was negative for PE some atelectasis at the lung bases abdominal ultrasound did shows a gallbladder wall was thickened patient is currently being treated with Zosyn infectious disease was consulted for further management of antibiotic therapy Review of Systems Positive point has been mentioned in the HPI rest of the systems are negative Past Medical History Past Medical History: Coronary Artery Disease (CAD), Chest Pain / Angina, Dementia, Diabetes Mellitus, Deep Vein Thrombosis (DVT), GERD/Reflux, GI Bleed, Hyperlipidemia, Hypertension, Musculoskeletal Disorder, Neurologic Disorder, Prostate Disorder, Thyroid Disorder, Vascular Disorder Additional Past Medical History / Comment(s): Insulin-dependent diabetes mellitus, peripheral vascular disease, chronic sinus disease, gout, previous bouts of GI bleed, questionable history of multiple sclerosis although the p atient has not demonstrated any neurologic deficits, obesity, hypothyroidism, hyperlipidemia Other HX: IDDM, pt told many yrs ago he had multiple sclerosis but has had no symptoms in years, PVD, sinus problems, gout, hematuria related to coumadin, GI bleed with transfusion r/t coumadin, cramps to bilateral lower legs frequently, DVT to L lower leg in 2006, BPH, hypothyroid, L arm fx in past. History of Any Multi-Drug Resistant Organisms: None Reported Past Surgical History: Back Surgery, Heart Catheterization With Stent, Orthopedic Surgery Additional Past Surgical History / Comment(s): 2001 cardiac cath with stent, E GD/colonoscopy with benign polyps, hemorrhoid surgery x 2, low back surgery, implants bilateral great toes, L knee arthroscopy, R finger amp 1st joint. Past Anesthesia/Blood Transfusion Reactions: No Reported Reaction Additional Past Anesthesia/Blood Transfusion Reaction / Comm: Pt has received blood in past without reaction. Date of Last Stent Placement:: 2001 Past Psychological History: Anxiety, Depression Smoking Status: Current every day smoker Past Alcohol Use History: Occasional Past Drug Use History: None Reported - Past Family History Father Family Medical History: No Reported History Additional Family Medical History / Comment(s): Thierry due to a fall when he was 56 yrs old. Mother Family Medical History: Dementia Additional Family Medical History / Comment(s): Mother lived to be 99yrs old. Medications and Allergies Home Medications Medication Instructions Recorded Confirmed Type Aspirin EC [Ecotrin] 325 mg PO DAILY 06/20/16 07/12/22 History Atorvastatin [Lipitor] 20 mg PO DAILY 06/20/16 07/12/22 History Sertraline [Zoloft] 50 mg PO DAILY 06/20/16 07/12/22 History Tamsulosin HCl [Flomax] 0.4 mg PO DAILY 06/20/16 07/12/22 History atenoloL 25 mg PO BID 06/20/16 07/12/22 History Pantoprazole [Protonix] 40 mg PO DAILY #30 tablet. 08/08/16 07/12/22 Rx Quinapril HCl [Accupril] 5 mg PO DAILY 10/24/21 07/12/22 History Triamterene-Hctz 37.5-25Mg 1 cap PO DAILY 10/24/21 07/12/22 History [Dyazide 37.5-25 Capsule] metFORMIN HCL ER [Glucophage XR] 500 mg PO BID 10/24/21 07/12/22 History Dapagliflozin Propanediol [Farxiga] 10 mg PO DAILY 01/28/22 07/12/22 History Levothyroxine Sodium [Synthroid] 150 mcg PO DAILY 01/28/22 07/12/22 History Colchicine 0.6 mg PO DAILY 07/12/22 07/12/22 History Insulin Detemir [Levemir Flextouch 42 units SQ HS 07/12/22 07/12/22 History Pen] icosapent ethyL [Icosapent Ethyl] 2 gm PO BID 07/12/22 07/12/22 History Allergies Allergy/AdvReac Type Severity Reaction Status Date / Time No Known Allergies Allergy Verified 07/12/22 21:44 Physical Exam Vitals: Vital Signs Temp Pulse Resp BP Pulse Ox 07/14/22 11:19 98.2 F 80 18 118/72 95 07/14/22 08:00 98.0 F 73 18 99/58 95 07/14/22 04:00 100.1 F H 93 18 111/59 94 L 07/14/22 01:59 108 H 18 07/14/22 00:00 99.7 F H 108 H 18 115/58 92 L 07/13/22 20:00 98.3 F 84 16 104/56 97 07/13/22 16:00 79 16 89/50 93 L Intake and Output 07/14/22 07/14/22 07/14/22 06:59 14:59 22:59 Intake Total 232 Output Total 400 Balance -168 Intake: IV 10 Invasive Line 2 5 Invasive Line 3 5 Oral 222 Output: Urine 400 Other: # Voids 1 1 # Bowel Movements 1 Weight 92 kg GENERAL DESCRIPTION: Elderly male lying in bed, no distress. No tachypnea or accessory muscle of respiration use. HEENT: Shows Pallor , no scleral icterus. Oral mucous membrane is dry. No pharyngeal erythema or thrush NECK: Trachea central, no thyromegaly. LUNGS: Unlabored breathing. Clear to auscultation anteriorly. No wheeze or crackle. HEART: S1, S2, regular rate and rhythm. No loud murmur ABDOMEN: Soft, no tenderness , guarding or rigidity, no organomegaly EXTREMITIES: No edema of feet. SKIN: No rash, no masses palpable. NEUROLOGICAL: The patient is awake, alert, oriented x3, mood and affect normal. Results CBC & Chem 7: 07/14/22 06:19 07/15/22 05:19 Labs: Abnormal Lab Results - Last 24 Hours (Table) 07/13/22 07/13/22 07/13/22 Range/Units 15:37 16:16 19:53 Plt Count (150-450) k/uL Lymphocytes # (1.0-4.8) k/uL Sodium 133 L (137-145) mmol/L Potassium (3.5-5.1) mmol/L Carbon Dioxide 20 L (22-30) mmol/L BUN 33 H (9-20) mg/dL Creatinine 1.55 H (0.66-1.25) mg/dL Glucose 143 H (74-99) mg/dL POC Glucose (mg/dL) 131 H 166 H (70-110) mg/dL Total Bilirubin 4.3 H (0.2-1.3) mg/dL AST 278 H (17-59) U/L ALT 283 H (4-49) U/L Alkaline Phosphatase 199 H (38-126) U/L Total Protein 5.6 L (6.3-8.2) g/dL Albumin 3.2 L (3.5-5.0) g/dL 07/14/22 07/14/22 07/14/22 Range/Units 06:19 06:19 11:49 Plt Count 105 L (150-450) k/uL Lymphocytes # 0.5 L (1.0-4.8) k/uL Sodium 136 L (137-145) mmol/L Potassium 3.3 L (3.5-5.1) mmol/L Carbon Dioxide 21 L (22-30) mmol/L BUN 34 H (9-20) mg/dL Creatinine 1.70 H (0.66-1.25) mg/dL Glucose (74-99) mg/dL POC Glucose (mg/dL) 122 H (70-110) mg/dL Total Bilirubin (0.2-1.3) mg/dL AST (17-59) U/L ALT (4-49) U/L Alkaline Phosphatase (38-126) U/L Total Protein (6.3-8.2) g/dL Albumin (3.5-5.0) g/dL Microbiology - Last 24 Hours (Table) 07/12/22 20:00 Blood Culture Gram Stain - Preliminary Blood Blood Culture - Preliminary Escherichia coli 07/12/22 19:45 Blood Culture - Preliminary Blood No Growth after 24 hours Assessment and Plan (1) Bacteremia Current Visit: Yes Status: Acute Code(s): R78.81 - BACTEREMIA SNOMED Code(s): 0339812 Plan: 1patient with an E. coli bacteremia source likely ascending cholangitis in this patient presented to hospital with weakness did have fever elevated white count elevated liver enzymes #1 UA and evidence of acute abnormality on the CT abdominal pelvis however did have a abnormal ultrasound suggestive of thickened gallbladder wall. 2blood cultures will be repeated document clearance of bacteremia 3continue with Zosyn while waiting for the culture to finalize 4await GI evaluation and possible ERCP we will follow on clinical condition and cultures to further adjust medication if needed Thank you for this consultation will follow this patient along with you Time with Patient: Greater than 30
[2022-07-15] MEDS: PIPERACILLIN-TAZOBACTAM 3.375 GM in SODIUM CHLORIDE 0.9% 100 ML IVPB SCH ×4 (00:23→23:55)
[2022-07-15] MEDS: IBUPROFEN 400 MG TAB PO PRN (00:23)
[2022-07-15 05:48] LABS: Albumin 3.2 g/dL (3.5-5.0); Calcium 9.3 mg/dL (8.4-10.2); Potassium 4.6 mmol/L (3.5-5.1); Total Bilirubin 2.1 mg/dL (0.2-1.3); Total Protein 5.7 g/dL (6.3-8.2)
[2022-07-15 06:08] LABS: Glucose,Whole Blood 62 mg/dL (70-110)
[2022-07-15] MEDS: INSULIN ASPART (NovoLOG) 100 UNIT/ML VIAL SQ SCH ×4 (06:24→20:27)
[2022-07-15] MEDS: LEVOTHYROXINE 75 MCG TAB PO SCH (06:32)
[2022-07-15 06:51] LABS: Glucose,Whole Blood 94 mg/dL (70-110)
--- NOTE | 2022-07-15 08:34 | P.DS ---
Providers Date of admission: 07/13/22 01:11 Expected date of discharge: 07/15/22 Attending physician: Yefri Roman MD Consults: 07/13/22 07:01 Consult Physician Routine Consulting Provider: Adele Escobedo Consult Reason/Comments: elevated liver enzymes Do you want consulting provider notified?: Yes 07/13/22 10:15 Consult Physician Routine Consulting Provider: Erick Curry Consult Reason/Comments: cholecystitis Do you want consulting provider notified?: Yes 07/14/22 11:23 Consult Physician Routine Consulting Provider: Lashell Ayoub Consult Reason/Comments: cholecystitis, g neg bacteremia Do you want consulting provider notified?: Yes Primary care physician: Neri Garg MD Hospital Course: 76 year old male with history of MS , CAD s/p stents , hypothyroid patient comes in from home, for concerns regarding generalized weakness. about 2 days ago , he suddenly was unable to get up from seated position, unable to stand up. he normally able to walk around using a cane or walker, or leaning against gordon. he admits to bumping against things a lot, but denies any falls or head injury. he denies any numbness or parasthsia , denies any changes in vision hearing or speech. he also reports repeated episodes of vomiting yesterday while in the ED. non bloodly non bilious. reports an associated right lower quadrant abd discomfort denies any GI bleeding or diarrhea. denies any fever chills. he denies any recent travel or hospitalization. patient was seen and discharged back in October , when he was admitted for sudden episode of lower extremity weakness , and was diagnosed with MS exacerbation. which he was diagnosed with 50 years ago, however, he does not recall this diagnosis , and denies having recurrent episodes of weakness related to that disease. in the ED , CT of the abdomen showed diverticular disease without other acute pathology blood work showed elevated liver enzymes, chronic thrombocytopenia and CKD. abd US showed thickening of gall bladder wall with possible cholecystitis d dimer was elevated, CTA of the chest no acute pathology. Patient was admitted for sepsis related to ascending cholangitis/acute cholecystitis. He was started on Zosyn. Gastroenterology was not available over the weekend and surgery was consulted. Surgery recommended GI evaluation for ERCP/MRCP. His blood cultures are noted to be positive for E. coli. Infectious disease was consulted and followed the patient during his hospitalization. Patient was seen and examined on 07/15/2022. He reported no complaints. He was agreeable to be transferred to [facility]. Transfer was initiated and pending at the time of this note. General: non toxic, no distress, appears at stated age Derm: warm, dry Head: atraumatic, normocephalic, symmetric Eyes: EOMI, no lid lag, anicteric sclera Mouth: no lip lesion, mucus membranes moist Cardiovascular: S1S2 reg, no murmur Lungs: CTA bilateral, no rhonchi, no rales , no accessory muscle use Abdominal: soft, nontender to palpation, no guarding, no appreciable organomegaly Ext: no gross muscle atrophy, no edema, no contractures Neuro: no focal neuro deficits Psych: Alert, oriented, appropriate affect Discharge Diagnosis: #Sepsis related to acute cholecystitis/ascending cholangitis #Gram-negative bacteremia #Transaminitis #Elevated d-dimer #Generalized weakness Resolved: Hypokalemia Chronic conditions: history of multiple sclerosis, chronic kidney disease, diabetes mellitus, hypertension, hypothyroidism, BPH, history of CAD with stent This complex discharge took over 45 minutes complete. Anticipate transfer to [facility] for GI evaluation. Pertinent Studies: Chest x-ray Abdominal ultrasound CT abdomen pelvis Chest CTA Patient Condition at Discharge: Serious Plan - Discharge Summary Discharge Rx Participant: No New Discharge Prescriptions: No Action Atorvastatin [Lipitor] 20 mg PO DAILY atenoloL 25 mg PO BID Tamsulosin HCl [Flomax] 0.4 mg PO DAILY Sertraline [Zoloft] 50 mg PO DAILY Aspirin EC [Ecotrin] 325 mg PO DAILY Pantoprazole [Protonix] 40 mg PO DAILY #30 tablet. Triamterene-Hctz 37.5-25Mg [Dyazide 37.5-25 Capsule] 1 cap PO DAILY Quinapril HCl [Accupril] 5 mg PO DAILY Levothyroxine Sodium [Synthroid] 150 mcg PO DAILY icosapent ethyL [Icosapent Ethyl] 2 gm PO BID Insulin Detemir [Levemir Flextouch Pen] 42 units SQ HS Colchicine 0.6 mg PO DAILY metFORMIN HCL ER [Glucophage XR] 500 mg PO BID Dapagliflozin Propanediol [Farxiga] 10 mg PO DAILY Discharge Medication List Aspirin EC [Ecotrin] 325 mg PO DAILY 06/20/16 [History] Atorvastatin [Lipitor] 20 mg PO DAILY 06/20/16 [History] Sertraline [Zoloft] 50 mg PO DAILY 06/20/16 [History] Tamsulosin HCl [Flomax] 0.4 mg PO DAILY 06/20/16 [History] atenoloL 25 mg PO BID 06/20/16 [History] Pantoprazole [Protonix] 40 mg PO DAILY #30 tablet.dr 08/08/16 [Rx] Quinapril HCl [Accupril] 5 mg PO DAILY 10/24/21 [History] Triamterene-Hctz 37.5-25Mg [Dyazide 37.5-25 Capsule] 1 cap PO DAILY 10/24/21 [History] metFORMIN HCL ER [Glucophage XR] 500 mg PO BID 10/24/21 [History] Dapagliflozin Propanediol [Farxiga] 10 mg PO DAILY 01/28/22 [History] Levothyroxine Sodium [Synthroid] 150 mcg PO DAILY 01/28/22 [History] Colchicine 0.6 mg PO DAILY 07/12/22 [History] Insulin Detemir [Levemir Flextouch Pen] 42 units SQ HS 07/12/22 [History] icosapent ethyL [Icosapent Ethyl] 2 gm PO BID 07/12/22 [History] Follow up Appointment(s)/Referral(s): Neri Garg MD [Primary Care Provider] - 1-2 days
[2022-07-15] MEDS: SERTRALINE 50 MG TAB PO SCH (08:51)
[2022-07-15] MEDS: lisinopriL 5 MG TAB PO SCH (08:51)
[2022-07-15] MEDS: PANTOPRAZOLE 40 MG TABLET PO SCH (08:51)
[2022-07-15] MEDS: TAMSULOSIN 0.4 MG CAP.ER.24H PO SCH (08:51)
[2022-07-15] MEDS: ASPIRIN 325 MG TAB PO SCH (08:51)
[2022-07-15] MEDS: DAPAGLIFLOZIN PROPANEDIOL 10 MG TABLET PO SCH (08:51)
[2022-07-15] MEDS: TRIAMTERENE-HCTZ 37.5-25MG 1 EACH CAP PO SCH (08:51)
[2022-07-15] MEDS: ENOXAPARIN 40 MG/0.4 ML SYRINGE SQ SCH (08:52)
[2022-07-15] MEDS: atenoloL 25 MG TAB PO SCH ×2 (08:52→20:27)
[2022-07-15] MEDS: COLCHICINE 0.6 MG EACH PO SCH (08:52)
--- NOTE | 2022-07-15 11:21 | P.PN ---
Subjective Progress Note Date: 07/15/22 Principal diagnosis: Elevated liver enzymes Patient minute over the weekend with weakness. He describes decreased appetite. No nausea or vomiting. Says he has occasional lower abdominal pain. Denies any right upper quadrant pain. He had an ultrasound which was limited however did not demonstrate gallstones. Mild gallbladder wall thickening suspected. He also had a CT abdomen and pelvis showing no obvious problems. Patient's liver enzymes have been elevated although decreasing. GI has been consulted. Apparently MRI has also been ordered. Objective - Vital Signs Vital signs: Vital Signs Temp 96.9 F L 07/15/22 08:00 Pulse 62 07/15/22 08:00 Resp 14 07/15/22 08:00 BP 144/90 07/15/22 08:00 Pulse Ox 97 07/15/22 08:38 FiO2 Intake & Output 07/14/22 07/15/22 07/15/22 18:59 06:59 18:59 Intake Total 350 Output Total 400 Balance -50 Weight 93.5 kg Intake: IV 10 Invasive Line 2 5 Invasive Line 3 5 Oral 340 Output: Urine 400 Other: Voiding Method Toilet Toilet Diaper Diaper # Voids 1 2 # Bowel Movements 1 - Exam Abdomen: Soft, obese, diastases recti noted, no palpable tenderness - Labs CBC & Chem 7: 07/14/22 06:19 07/15/22 05:19 Labs: Abnormal Lab Results - Last 24 Hours (Table) 07/14/22 07/14/22 07/14/22 Range/Units 11:49 16:29 20:04 BUN (9-20) mg/dL Creatinine (0.66-1.25) mg/dL Glucose (74-99) mg/dL POC Glucose (mg/dL) 122 H 153 H 164 H (70-110) mg/dL Total Bilirubin (0.2-1.3) mg/dL AST (17-59) U/L ALT (4-49) U/L Alkaline Phosphatase (38-126) U/L Total Protein (6.3-8.2) g/dL Albumin (3.5-5.0) g/dL 07/15/22 07/15/22 Range/Units 05:19 06:06 BUN 27 H (9-20) mg/dL Creatinine 1.59 H (0.66-1.25) mg/dL Glucose 58 L (74-99) mg/dL POC Glucose (mg/dL) 62 L (70-110) mg/dL Total Bilirubin 2.1 H (0.2-1.3) mg/dL AST 282 H (17-59) U/L ALT 317 H (4-49) U/L Alkaline Phosphatase 243 H (38-126) U/L Total Protein 5.7 L (6.3-8.2) g/dL Albumin 3.2 L (3.5-5.0) g/dL Microbiology - Last 24 Hours (Table) 07/14/22 06:19 Blood Culture - Preliminary Blood No Growth after 24 hours 07/12/22 19:45 Blood Culture Gram Stain - Preliminary Blood Blood Culture - Preliminary Klebsiella pneumoniae 07/12/22 19:45 Blood Culture - Final Blood 07/12/22 20:00 Blood Culture Gram Stain - Preliminary Blood Blood Culture - Preliminary Escherichia coli Assessment and Plan (1) Elevated liver enzymes Narrative/Plan: 76-year-old male with elevated liver enzymes. No gallstones seen on ultrasound. Await MRCP and GI consultation. We'll follow. Current Visit: Yes Status: Acute Code(s): R74.8 - ABNORMAL LEVELS OF OTHER SERUM ENZYMES SNOMED Code(s): 655783188
[2022-07-15 11:33] LABS: Glucose,Whole Blood 80 mg/dL (70-110)
--- NOTE | 2022-07-15 12:15 | P.PN ---
Subjective Progress Note Date: 07/15/22 Principal diagnosis: Gram-negative bacteremia Patient is a 76-year-old male presented to hospital with weakness right-sided abdominal pain and vomiting has been diagnosed with a possible cholecystitis and elevated liver enzymes and possible choledocholithiasis and cholangitis with gram-negative bacteremia. On today's evaluation that is 07/15/2022, the patient denies having any fever or bases, the patient still have some right-sided abdominal pain but no worsening denies any nausea no vomiting no chest pain shortness of breath or cough and no diarrhea Objective - Vital Signs Vital signs: Vital Signs Temp 96.9 F L 07/15/22 12:00 Pulse 62 07/15/22 12:00 Resp 12 07/15/22 12:00 BP 106/65 07/15/22 12:00 Pulse Ox 100 07/15/22 12:00 FiO2 Intake & Output 07/14/22 07/15/22 07/15/22 18:59 06:59 18:59 Intake Total 350 Output Total 400 Balance -50 Weight 93.5 kg Intake: IV 10 Invasive Line 2 5 Invasive Line 3 5 Oral 340 Output: Urine 400 Other: Voiding Method Toilet Toilet Diaper Diaper # Voids 1 2 # Bowel Movements 1 - Exam GENERAL DESCRIPTION: An elderly male lying in bed in no distress RESPIRATORY SYSTEM: Unlabored breathing , decreased breath sounds at bases HEART: S1 S2 regular rate and rhythm , ABDOMEN: Soft , mild right-sided tenderness EXTREMITIES: No edema feet - Labs CBC & Chem 7: 07/14/22 06:19 07/15/22 05:19 Labs: Abnormal Lab Results - Last 24 Hours (Table) 07/14/22 07/14/22 07/15/22 Range/Units 16:29 20:04 05:19 BUN 27 H (9-20) mg/dL Creatinine 1.59 H (0.66-1.25) mg/dL Glucose 58 L (74-99) mg/dL POC Glucose (mg/dL) 153 H 164 H (70-110) mg/dL Total Bilirubin 2.1 H (0.2-1.3) mg/dL AST 282 H (17-59) U/L ALT 317 H (4-49) U/L Alkaline Phosphatase 243 H (38-126) U/L Total Protein 5.7 L (6.3-8.2) g/dL Albumin 3.2 L (3.5-5.0) g/dL 07/15/22 Range/Units 06:06 BUN (9-20) mg/dL Creatinine (0.66-1.25) mg/dL Glucose (74-99) mg/dL POC Glucose (mg/dL) 62 L (70-110) mg/dL Total Bilirubin (0.2-1.3) mg/dL AST (17-59) U/L ALT (4-49) U/L Alkaline Phosphatase (38-126) U/L Total Protein (6.3-8.2) g/dL Albumin (3.5-5.0) g/dL Microbiology - Last 24 Hours (Table) 07/14/22 06:19 Blood Culture - Preliminary Blood No Growth after 24 hours 07/12/22 19:45 Blood Culture Gram Stain - Preliminary Blood Blood Culture - Preliminary Klebsiella pneumoniae 07/12/22 19:45 Blood Culture - Final Blood 07/12/22 20:00 Blood Culture Gram Stain - Preliminary Blood Blood Culture - Preliminary Escherichia coli Assessment and Plan (1) Bacteremia Current Visit: Yes Status: Acute Code(s): R78.81 - BACTEREMIA SNOMED Code(s): 0359782 Plan: 1patient with an E. coli bacteremia source likely ascending cholangitis in this patient presented to hospital with weakness did have fever elevated white count elevated liver enzymes , negative UA and no evidence of acute abnormality on the CT abdominal pelvis however did have a abnormal ultrasound suggestive of thickened gallbladder wall. 2blood cultures will be repeated document clearance of bacteremia 3patient to continue with Zosyn while waiting for the culture to finalize , possible transfer for ERCP Time with Patient: Less than 30
[2022-07-15] MEDS: SODIUM CHLORIDE 0.9% 1,000 ML IV SCH ×2 (15:34→20:27)
[2022-07-15 16:55] LABS: Glucose,Whole Blood 185 mg/dL (70-110)
[2022-07-15 19:47] LABS: Glucose,Whole Blood 217 mg/dL (70-110)
[2022-07-15] MEDS: INSULIN DETEMIR (LEVEMIR) 100 UNIT/ML SYR SQ SCH (20:28)
[2022-07-16 05:47] LABS: Glucose,Whole Blood 137 mg/dL (70-110)
[2022-07-16] MEDS: INSULIN ASPART (NovoLOG) 100 UNIT/ML VIAL SQ SCH ×4 (05:56→20:17)
[2022-07-16] MEDS: LEVOTHYROXINE 75 MCG TAB PO SCH (06:14)
[2022-07-16] MEDS: PIPERACILLIN-TAZOBACTAM 3.375 GM in SODIUM CHLORIDE 0.9% 100 ML IVPB SCH ×3 (08:16→23:49)
[2022-07-16] MEDS: ASPIRIN 325 MG TAB PO SCH (08:17)
[2022-07-16] MEDS: atenoloL 25 MG TAB PO SCH ×2 (08:17→20:16)
[2022-07-16] MEDS: DAPAGLIFLOZIN PROPANEDIOL 10 MG TABLET PO SCH (08:17)
[2022-07-16] MEDS: ENOXAPARIN 40 MG/0.4 ML SYRINGE SQ SCH (08:17)
[2022-07-16] MEDS: PANTOPRAZOLE 40 MG TABLET PO SCH (08:17)
[2022-07-16] MEDS: lisinopriL 5 MG TAB PO SCH (08:17)
[2022-07-16] MEDS: COLCHICINE 0.6 MG EACH PO SCH (08:18)
[2022-07-16] MEDS: TRIAMTERENE-HCTZ 37.5-25MG 1 EACH CAP PO SCH (08:18)
[2022-07-16] MEDS: SERTRALINE 50 MG TAB PO SCH (08:18)
[2022-07-16] MEDS: TAMSULOSIN 0.4 MG CAP.ER.24H PO SCH (08:18)
[2022-07-16] MEDS: SODIUM CHLORIDE 0.9% 1,000 ML IV SCH (08:20)
[2022-07-16 09:36] LABS: Albumin 3.4 g/dL (3.5-5.0); Potassium 4.8 mmol/L (3.5-5.1); Total Bilirubin 1.4 mg/dL (0.2-1.3); Total Protein 5.9 g/dL (6.3-8.2)
[2022-07-16 11:47] LABS: Glucose,Whole Blood 154 mg/dL (70-110)
--- NOTE | 2022-07-16 12:44 | P.PN ---
Subjective Progress Note Date: 07/16/22 Principal diagnosis: Acute cholecystitis Patient is a 76-year-old male with a past medical history of MS, hernia disease status post stent, hypothyroidism who presents to the ED with generalized weakness. Patient also complained of nausea and vomiting as well as right upper quadrant abdominal discomfort. In the ED patient was found to have elevated LFTs and bilirubin. Computed tomography scan showed no acute pathology. HOWEVER DID SHOW THICKENING OF THE GALLBLADDER WALL WITH POSSIBLE CYSTITIS. Patient blood cultures positive for E. coli and there is strong suspicion for acute cholangitis as the source. General surgery who recommended ERCP. [facility] not available this week. Currently awaiting for transfer to [facility] for ERCP. This morning patient is complaining of some discomfort in the right upper quadrant. He is also wondering when he'll be transferred to [facility]. I did call [facility] this morning and is not able to give me any estimated time. However they did tell me that they're beds are currently full. Objective - Vital Signs Vital signs: Vital Signs Temp 98.3 F 07/16/22 11:14 Pulse 60 07/16/22 11:14 Resp 14 07/16/22 11:14 BP 109/70 07/16/22 11:14 Pulse Ox 96 07/16/22 12:22 FiO2 Intake & Output 07/15/22 07/16/22 07/16/22 18:59 06:59 18:59 Intake Total 1176 689 Output Total 720 Balance 1176 -31 Weight 91.5 kg Intake: Intake, IV Titration 700 Amount Piperacillin-Tazobactam 3 100 .375 gm In Sodium Chloride 0.9% 100 ml @ 25 mls/hr IVPB Q8HR [facility] Rx# :[id number] Sodium Chloride 0.9% 1, 600 000 ml @ 75 mls/hr IV . 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 Psych - Calm and cooperative - Labs CBC & Chem 7: 07/14/22 06:19 07/16/22 09:12 Labs: Abnormal Lab Results - Last 24 Hours (Table) 07/15/22 07/15/22 07/16/22 Range/Units 16:53 19:43 05:46 BUN (9-20) mg/dL Creatinine (0.66-1.25) mg/dL Glucose (74-99) mg/dL POC Glucose (mg/dL) 185 H 217 H 137 H (70-110) mg/dL Total Bilirubin (0.2-1.3) mg/dL AST (17-59) U/L ALT (4-49) U/L Alkaline Phosphatase (38-126) U/L Total Protein (6.3-8.2) g/dL Albumin (3.5-5.0) g/dL 07/16/22 07/16/22 Range/Units 09:12 11:46 BUN 22 H (9-20) mg/dL Creatinine 1.44 H (0.66-1.25) mg/dL Glucose 146 H (74-99) mg/dL POC Glucose (mg/dL) 154 H (70-110) mg/dL Total Bilirubin 1.4 H (0.2-1.3) mg/dL AST 352 H (17-59) U/L ALT 377 H (4-49) U/L Alkaline Phosphatase 359 H (38-126) U/L Total Protein 5.9 L (6.3-8.2) g/dL Albumin 3.4 L (3.5-5.0) g/dL Microbiology - Last 24 Hours (Table) 07/12/22 19:45 Blood Culture Gram Stain - Final Blood Blood Culture - Final Klebsiella pneumoniae 07/14/22 06:19 Blood Culture - Preliminary Blood No Growth after 48 hours 07/15/22 05:19 Blood Culture - Preliminary Blood No Growth after 24 hours 07/12/22 20:00 Blood Culture Gram Stain - Final Blood Blood Culture - Final Escherichia coli Assessment and Plan Assessment: Acute cholangitis/acute cholecystitis with sepsis on admission Elevated LFTs and bilirubin E. coli bacteremia -Resume IV Zosyn -Infectious disease on board -Gen. surgery on board -LFTs are trending down. Bilirubin is also trending down -WBC has normalized -MRCP pending -Awaiting for transfer to [facility] for ERCP AK I on CK D likely due to sepsis Resolved Elevated d-dimer secondary to acute phase reactant Generalized weakness Patient will need PT OT consult prior to discharge DVT prophylaxis: Subcu Lovenox
--- NOTE | 2022-07-16 14:04 | P.PN ---
Subjective Progress Note Date: 07/16/22 CHIEF COMPLAINT: Abdominal pain HISTORY OF PRESENT ILLNESS: Patient sitting up at bedside chair. He reports that the abdominal pain has resolved. He denies any nausea or vomiting. Patient did tolerate diet this morning. Patient is being transferred to [facility] because there is no GI coverage here. The MRCP will be done at [facility]. Patient currently awaiting bed availability at [facility]. Afebrile. Total bilirubin is down from 2.1-1.4 AST 282-352 ALT 317 up to 377 alk phos 243 up to 359 PHYSICAL EXAM: VITAL SIGNS: Reviewed. GENERAL: Well-developed in no acute distress. HEENT: No sclera icterus. Extraocular movements grossly intact. Moist buccal mucosa. Head is atraumatic, normocephalic. ABDOMEN: Soft. Nondistended. Nontender. NEUROLOGIC: Alert and oriented. Cranial nerves II through XII grossly intact. ASSESSMENT: 1. Elevated LFTs with gallbladder ultrasound showing wall thickening PLAN: -Patient is in the process of being transferred to [facility] because there is no GI coverage here. MRCP will be done at [facility] -Continue supportive care Physician Earth Mover note has been reviewed by physician. Signing provider agrees with the documented findings, assessment, and plan of care. 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 Based on total visit time, I have performed more than 50% of the visit. As above: Patient without complaints. No abdominal pain. Liver enzymes are improved. Patient was found have E. coli and blood cultures. Possibility of biliary source of bacteremia remains at this time. Await MRCP. Possible tr ansfer to [facility] for GI evaluation if that becomes available. Objective - Vital Signs Vital signs: Vital Signs Temp 98.3 F 07/16/22 11:14 Pulse 60 07/16/22 11:14 Resp 14 07/16/22 11:14 BP 109/70 07/16/22 11:14 Pulse Ox 96 07/16/22 12:22 FiO2 Intake & Output 07/15/22 07/16/22 07/16/22 18:59 06:59 18:59 Intake Total 1176 807 Output Total 720 Balance 1176 87 Weight 91.5 kg Intake: Intake, IV Titration 700 Amount Piperacillin-Tazobactam 3 100 .375 gm In Sodium Chloride 0.9% 100 ml @ 25 mls/hr IVPB Q8HR [facility] Rx# :[id number] Sodium Chloride 0.9% 1, 600 000 ml @ 75 mls/hr IV . [id number] [facility] Rx#:[id number] Oral [id number] [id number] Output: Urine 720 Other: Voiding Method Toilet Toilet Toilet Diaper Diaper Diaper # Voids 1 2 # Bowel Movements 1 1 - Labs CBC & Chem 7: 07/14/22 06:19 07/16/22 09:12 Labs: Abnormal Lab Results - Last 24 Hours (Table) 07/15/22 07/15/22 07/16/22 Range/Units 16:53 19:43 05:46 BUN (9-20) mg/dL Creatinine (0.66-1.25) mg/dL Glucose (74-99) mg/dL POC Glucose (mg/dL) 185 H 217 H 137 H (70-110) mg/dL Total Bilirubin (0.2-1.3) mg/dL AST (17-59) U/L ALT (4-49) U/L Alkaline Phosphatase (38-126) U/L Total Protein (6.3-8.2) g/dL Albumin (3.5-5.0) g/dL 07/16/22 07/16/22 Range/Units 09:12 11:46 BUN 22 H (9-20) mg/dL Creatinine 1.44 H (0.66-1.25) mg/dL Glucose 146 H (74-99) mg/dL POC Glucose (mg/dL) 154 H (70-110) mg/dL Total Bilirubin 1.4 H (0.2-1.3) mg/dL AST 352 H (17-59) U/L ALT 377 H (4-49) U/L Alkaline Phosphatase 359 H (38-126) U/L Total Protein 5.9 L (6.3-8.2) g/dL Albumin 3.4 L (3.5-5.0) g/dL Microbiology - Last 24 Hours (Table) 07/12/22 19:45 Blood Culture Gram Stain - Final Blood Blood Culture - Final Klebsiella pneumoniae 07/14/22 06:19 Blood Culture - Preliminary Blood No Growth after 48 hours 07/15/22 05:19 Blood Culture - Preliminary Blood No Growth after 24 hours 07/12/22 20:00 Blood Culture Gram Stain - Final Blood Blood Culture - Final Escherichia coli
[2022-07-16 16:34] LABS: Glucose,Whole Blood 144 mg/dL (70-110)
[2022-07-16 20:00] LABS: Glucose,Whole Blood 167 mg/dL (70-110)
[2022-07-16 20:16] VITALS: RESP 12
[2022-07-16] MEDS: INSULIN DETEMIR (LEVEMIR) 100 UNIT/ML SYR SQ SCH (20:18)
[2022-07-16 23:16] VITALS: BP 143/75; PULSE 56; TEMP 97.9
[2022-07-17] MEDS: SODIUM CHLORIDE 0.9% 1,000 ML IV SCH (00:25)
--- NOTE | 2022-07-17 07:55 | P.DS ---
Providers Date of admission: 07/13/22 01:11 Expected date of discharge: 07/17/22 Attending physician: Yefri Roman MD Consults: 07/13/22 07:01 Consult Physician Routine Consulting Provider: Adele Escobedo Consult Reason/Comments: elevated liver enzymes Do you want consulting provider notified?: Yes 07/13/22 10:15 Consult Physician Routine Consulting Provider: Erick Curry Consult Reason/Comments: cholecystitis Do you want consulting provider notified?: Yes 07/14/22 11:23 Consult Physician Routine Consulting Provider: Lashell Ayoub Consult Reason/Comments: cholecystitis, g neg bacteremia Do you want consulting provider notified?: Yes Primary care physician: Neri Garg MD Hospital Course: 76 year old male with history of MS , CAD s/p stents , hypothyroid patient comes in from home, for concerns regarding generalized weakness. about 2 days ago , he suddenly was unable to get up from seated position, unable to stand up. he normally able to walk around using a cane or walker, or leaning against gordon. he admits to bumping against things a lot, but denies any falls or head injury. he denies any numbness or parasthsia , denies any changes in vision hearing or speech. he also reports repeated episodes of vomiting yesterday while in the ED. non bloodly non bilious. reports an associated right lower quadrant abd discomfort denies any GI bleeding or diarrhea. denies any fever chills. he denies any recent travel or hospitalization. patient was seen and discharged back in October , when he was admitted for sudden episode of lower extremity weakness , and was diagnosed with MS exacerbation. which he was diagnosed with 50 years ago, however, he does not recall this diagnosis , and denies having recurrent episodes of weakness related to that disease. in the ED , CT of the abdomen showed diverticular disease without other acute pathology blood work showed elevated liver enzymes, chronic thrombocytopenia and CKD. abd US showed thickening of gall bladder wall with possible cholecystitis d dimer was elevated, CTA of the chest no acute pathology. Patient was admitted for sepsis related to ascending cholangitis/acute cholecystitis. He was started on Zosyn. Gastroenterology was not available over the weekend and surgery was consulted. Surgery recommended GI evaluation for ERCP/MRCP. His blood cultures are noted to be positive for E. coli. Infectious disease was consulted and followed the patient during his hospitalization. Patient was seen and examined on 07/15/2022. He reported no complaints. He was agreeable to be transferred to [facility]. Patient was trasferred on 07/16/2022 Please see my progress note for my physical exam Discharge Diagnosis: #Sepsis related to acute cholecystitis/ascending cholangitis #Gram-negative bacteremia #Transaminitis #Elevated d-dimer #Generalized weakness Resolved: Hypokalemia Chronic conditions: history of multiple sclerosis, chronic kidney disease, diabetes mellitus, hypertension, hypothyroidism, BPH, history of CAD with stent Patient Condition at Discharge: Fair Plan - Discharge Summary Discharge Rx Participant: No New Discharge Prescriptions: No Action Atorvastatin [Lipitor] 20 mg PO DAILY atenoloL 25 mg PO BID Tamsulosin HCl [Flomax] 0.4 mg PO DAILY Sertraline [Zoloft] 50 mg PO DAILY Aspirin EC [Ecotrin] 325 mg PO DAILY Pantoprazole [Protonix] 40 mg PO DAILY #30 tablet. Triamterene-Hctz 37.5-25Mg [Dyazide 37.5-25 Capsule] 1 cap PO DAILY Quinapril HCl [Accupril] 5 mg PO DAILY Levothyroxine Sodium [Synthroid] 150 mcg PO DAILY icosapent ethyL [Icosapent Ethyl] 2 gm PO BID Insulin Detemir [Levemir Flextouch Pen] 42 units SQ HS Colchicine 0.6 mg PO DAILY metFORMIN HCL ER [Glucophage XR] 500 mg PO BID Dapagliflozin Propanediol [Farxiga] 10 mg PO DAILY Discharge Medication List Aspirin EC [Ecotrin] 325 mg PO DAILY 06/20/16 [History] Atorvastatin [Lipitor] 20 mg PO DAILY 06/20/16 [History] Sertraline [Zoloft] 50 mg PO DAILY 06/20/16 [History] Tamsulosin HCl [Flomax] 0.4 mg PO DAILY 06/20/16 [History] atenoloL 25 mg PO BID 06/20/16 [History] Pantoprazole [Protonix] 40 mg PO DAILY #30 tablet. 08/08/16 [Rx] Quinapril HCl [Accupril] 5 mg PO DAILY 10/24/21 [History] Triamterene-Hctz 37.5-25Mg [Dyazide 37.5-25 Capsule] 1 cap PO DAILY 10/24/21 [History] metFORMIN HCL ER [Glucophage XR] 500 mg PO BID 10/24/21 [History] Dapagliflozin Propanediol [Farxiga] 10 mg PO DAILY 01/28/22 [History] Levothyroxine Sodium [Synthroid] 150 mcg PO DAILY 01/28/22 [History] Colchicine 0.6 mg PO DAILY 07/12/22 [History] Insulin Detemir [Levemir Flextouch Pen] 42 units SQ HS 07/12/22 [History] icosapent ethyL [Icosapent Ethyl] 2 gm PO BID 07/12/22 [History] Follow up Appointment(s)/Referral(s): Neri Garg MD [Primary Care Provider] - 1-2 days Discharge Disposition: [facility]
== END 2022-07-17 00:15 | disposition short-term general hospital (02) | DRG 872 ==
LOC: EC 19:18 → 3SCARD 07-13 01:11
PROVIDERS: ADMIT Internal Medicine; ATTEND Internal Medicine
DX: A41.51 Sepsis due to Escherichia coli [E. coli] (principal); K81.0 Acute cholecystitis; K83.09 Other cholangitis; N17.9 Acute kidney failure, unspecified; E03.9 Hypothyroidism, unspecified; I25.10 Atherosclerotic heart disease of native coronary artery without angina pectoris; D69.6 Thrombocytopenia, unspecified; G35 Multiple sclerosis; E11.22 Type 2 diabetes mellitus with diabetic chronic kidney disease; E78.5 Hyperlipidemia, unspecified; M10.9 Gout, unspecified; F32.A Depression, unspecified; F41.9 Anxiety disorder, unspecified; I13.10 Hypertensive heart and chronic kidney disease without heart failure, with stage 1 through stage 4 chronic kidney disease, or unspecified chronic kidney disease; E11.51 Type 2 diabetes mellitus with diabetic peripheral angiopathy without gangrene; E66.01 Morbid (severe) obesity due to excess calories; I70.209 Unspecified atherosclerosis of native arteries of extremities, unspecified extremity; R74.01 Elevation of levels of liver transaminase levels; N18.9 Chronic kidney disease, unspecified; F17.200 Nicotine dependence, unspecified, uncomplicated; F03.90 Unspecified dementia, unspecified severity, without behavioral disturbance, psychotic disturbance, mood disturbance, and anxiety; K57.90 Diverticulosis of intestine, part unspecified, without perforation or abscess without bleeding; N40.0 Benign prostatic hyperplasia without lower urinary tract symptoms; Z20.822 Contact with and (suspected) exposure to COVID-19; K21.9 Gastro-esophageal reflux disease without esophagitis; E87.6 Hypokalemia; Z68.39 Body mass index [BMI] 39.0-39.9, adult; Z95.5 Presence of coronary angioplasty implant and graft; Z79.4 Long term (current) use of insulin; Z79.82 Long term (current) use of aspirin; Z79.84 Long term (current) use of oral hypoglycemic drugs; Z79.890 Hormone replacement therapy; Z79.899 Other long term (current) drug therapy; Z89.021 Acquired absence of right finger(s); Z86.718 Personal history of other venous thrombosis and embolism
CPT/HCPCS: 36415; 71046; 71275; 74177; 76705; 80048; 80053; 80074; 81003; 83605; 83735; 83880; 84484; 85025; 85379; 85610; 85730; 87040; 87077; 87186; 87635; 93005; 94760; 96361; 96374; 96376; 99285

== ENCOUNTER → 2024-01-27 | Outpatient (CLI) | payer MEDICARE ==
--- NOTE | 2024-01-27 07:59 | US ---
EXAMINATION TYPE: US Aorta Screening DATE OF EXAM: 01/27/2024 COMPARISON: NONE CLINICAL INDICATION: Male, 78 years old with history of F17.200 NICOTINE DEPENDENCE, UNSPECIFIED, [facility] OMPLI; Patient is a current smoker. No pain or symptoms. TECHNIQUE: Multiple sonographic images of the abdominal aorta are obtained. FINDINGS: EXAM MEASUREMENTS: Abdominal Aorta: Proximal: 2.7 x 2.6 Mid: 2.4 x 2.6 Distal: 1.9 x 1.5 Bifurcation: Right Iliac: 1.0 Left Iliac: 1.1 TIRE TESTER NOTES: Limited visualization due to overlying bowel. Prox scanned intercostally. Ectati c at proximal. IMPRESSION: No evidence for abdominal aortic aneurysm
== END | disposition home or self-care (01) ==
LOC: RADUSWWP 07:05
PROVIDERS: ATTEND Internal Medicine
DX: Z13.6 Encounter for screening for cardiovascular disorders (principal); F17.200 Nicotine dependence, unspecified, uncomplicated
CPT/HCPCS: 76706

== ENCOUNTER 2025-04-22 05:43 | Inpatient (IN) | payer MEDICARE ==
[2025-04-22 05:47] LABS: Glucose,Whole Blood 195 mg/dL (70-110)
--- NOTE | 2025-04-22 06:04 | ED ---
General Adult HPI <Eder Colon - Last Filed: 04/22/25 08:15> - General Source: patient, EMS, RN notes reviewed, old records reviewed Mode of arrival: EMS Limitations: altered mental status <Charli Taveras - Last Filed: 04/22/25 21:34> - General Chief complaint: Neuro Symptoms/Deficit Stated complaint: Neuro-Symptoms Time Seen by Provider: 04/22/25 05:50 - History of Present Illness Initial comments: Patient is an 79-year-old male who presents emergency department complaining of sudden onset left-sided weakness. Apparently this occurred at 4:45 AM this morning. He was awake before this and he noticed it. He contacted his son who confirmed that this was the case. States he has been having a productive cough lately as well as some nausea and vomiting. Is on blood thinners. No evidence of head trauma or history of recent head trauma. He currently has no neurological symptoms upon presentation. Presents for further evaluation at this time. CAD, dementia, diabetes, hypertension, hyperlipidemia, chronic tobacco use. (Charli Taveras) - Related Data Home Medications Medication Instructions Recorded Confirmed Aspirin EC [Ecotrin] 325 mg PO DAILY 06/20/16 04/22/25 Atorvastatin [Lipitor] 20 mg PO HS 06/20/16 04/22/25 Sertraline [Zoloft] 50 mg PO DAILY 06/20/16 04/22/25 Tamsulosin HCl [Flomax] 0.4 mg PO HS 06/20/16 04/22/25 atenoloL 25 mg PO BID 06/20/16 04/22/25 metFORMIN HCL ER [Glucophage XR] 500 mg PO BID 10/24/21 04/22/25 Dapagliflozin Propanediol [Farxiga] 10 mg PO DAILY 01/28/22 04/22/25 Colchicine 0.6 mg PO DAILY 07/12/22 04/22/25 icosapent ethyL [Icosapent Ethyl] 2 gm PO BID 07/12/22 04/22/25 Dulaglutide [Trulicity] 3 mg SQ TH 04/22/25 04/22/25 Ergocalciferol (Vitamin D2) 1,250 mcg PO Q7D 04/22/25 04/22/25 [Drisdol (GEQ) 1,250 MCG (50,000 IU)] Folic Acid 1 mg PO DAILY 04/22/25 04/22/25 Insulin Glargine,Hum.rec.anlog 30 units SQ HS 04/22/25 04/22/25 [Lantus Solostar Pen] Levothyroxine Sodium [Synthroid] 137 mcg PO DAILY 04/22/25 04/22/25 tiZANidine [Zanaflex] 2 mg PO TID PRN 04/22/25 04/22/25 Previous Rx's Medication Instructions Recorded Pantoprazole [Protonix] 40 mg PO DAILY #30 tablet. 08/08/16 Allergies Allergy/AdvReac Type Severity Reaction Status Date / Time No Known Allergies Allergy Verified 04/22/25 10:53 Review of Systems ROS Other: All systems not noted in ROS Statement are negative. <Eder Colon - Last Filed: 04/22/25 08:15> ROS Other: All systems not noted in ROS Statement are negative. <Charli Taveras - Last Filed: 04/22/25 21:34> ROS Statement: Those systems with pertinent positive or pertinent negative responses have been documented in the HPI. Review of Systems: CONST: Denies fever EYES: Denies blurry vision ENT: Endorses nasal congestion C/V: Denies Chest pain RESP: Denies shortness of breath GI: Endorses abdominal discomfort, nausea and vomiting : Denies dysuria SKIN: Denies rash. MSK: Denies joint pain. NEURO: Denies headache (Charli Taveras) Past Medical History Past Medical History: Coronary Artery Disease (CAD), Chest Pain / Angina, Dementia, Diabetes Mellitus, Deep Vein Thrombosis (DVT), GERD/Reflux, GI Bleed, Hyperlipidemia, Hypertension, Musculoskeletal Disorder, Neurologic Disorder, Prostate Disorder, Thyroid Disorder, Vascular Disorder Additional Past Medical History / Comment(s): Insulin-dependent diabetes mellitus, peripheral vascular disease, chronic sinus disease, gout, previous bouts of GI bleed, questionable history of multiple sclerosis although the patient has not demonstrated any neurologic deficits, obesity, hypothyroidism, hyperlipidemia Other HX: IDDM, pt told many yrs ago he had multiple sclerosis but has had no symptoms in years, PVD, sinus problems, gout, hematuria related to coumadin, GI bleed with transfusion r/t coumadin, cramps to bilateral lower l egs frequently, DVT to L lower leg in 2005, BPH, hypothyroid, L arm fx in past. History of Any Multi-Drug Resistant Organisms: None Reported Past Surgical History: Back Surgery, Heart Catheterization With Stent, Orthopedic Surgery Additional Past Surgical History / Comment(s): 2001 cardiac cath with stent, EGD/colonoscopy with benign polyps, hemorrhoid surgery x 2, low back surgery, implants bilateral great toes, L knee arthroscopy, R finger amp 1st joint. Past Anesthesia/Blood Transfusion Reactions: No Reported Reaction Additional Past Anesthesia/Blood Transfusion Reaction / Comment(s): Pt has received blood in past without reaction. Date of Last Stent Placement:: 2001 Past Psychological History: Anxiety, Depression Smoking Status: Current every day smoker Past Alcohol Use History: Occasional Past Drug Use History: None Reported - Past Family History Father Family Medical History: No Reported History Additional Family Medical History / Comment(s): Thierry due to a fall when he was 56 yrs old. Mother Family Medical History: Dementia Additional Family Medical History / Comment(s): Mother lived to be 99yrs old. <Charli Taveras - Last Filed: 04/22/25 21:34> General Exam Limitations: altered mental status <Charli Taveras - Last Filed: 04/22/25 21:34> - General Exam Comments Initial Comments: General: Febrile HEAD: Normal with no signs of head trauma. EYES: PERRLA, EOMI, conjunctiva normal, no discharge. Pupils are 3 mm and equal bilaterally. ENT: Hearing grossly intact, normal oropharynx. RESPIRATORY: Coarse wheezing bilaterally. No significant hypoxia. C/V: Regular rate and rhythm. S1 and S2 auscultated, no edema, peripheral pulses 2+ and intact throughout ABD: Abdomen soft, nondistended. Mild tenderness to palpation in the upper abdominal quadrants. No guarding or rebound tenderness. No peritoneal signs. EXT: Normal range of motion, no obvious deformity SKIN: No rashes or lesions observed on exposed skin. NEURO: Alert and oriented x 4. NIH is 0. (Charli Taveras) Course Vital Signs 04/22/25 04/22/25 04/22/25 05:46 06:39 06:46 Temperature 100.8 F H Pulse Rate 109 H 101 H 105 H Respiratory 18 Rate Blood Pressure 158/77 O2 Sat by Pulse 94 L Oximetry 04/22/25 04/22/25 04/22/25 08:59 11:26 14:00 Temperature 99 F Pulse Rate 104 H 87 87 Respiratory 17 20 18 Rate Blood Pressure 128/70 125/65 172/83 O2 Sat by Pulse 93 L 91 L 96 Oximetry 04/22/25 04/22/25 04/22/25 15:21 15:34 17:12 Temperature Pulse Rate 72 74 97 Respiratory 18 Rate Blood Pressure 133/67 O2 Sat by Pulse 93 L Oximetry 04/22/25 04/22/25 04/22/25 19:00 19:39 19:55 Temperature 98.5 F Pulse Rate 93 98 98 Respiratory 18 17 Rate Blood Pressure 136/72 139/71 O2 Sat by Pulse 95 96 Oximetry 04/22/25 21:14 Temperature Pulse Rate 98 Respiratory 17 Rate Blood Pressure 148/80 O2 Sat by Pulse 97 Oximetry Medical Decision Making - Lab Data Result diagrams: 04/22/25 05:45 04/22/25 05:45 <Eder Colon - Last Filed: 04/22/25 08:15> - Lab Data Result diagrams: 04/22/25 05:45 04/22/25 05:45 - EKG Data -: EKG Interpreted by Wa <Charli Taveras - Last Filed: 04/22/25 21:34> - Medical Decision Making Ultrasound negative for acute cholecystitis, gallstones are present. This patient admitted to [facility] for further evaluation and treatment of pneumonia, possible TIA. Neurology placed on consult. (Eder Colon) Was pt. sent in by a medical professional or institution ([facility], PHARMACY MESSENGER, urgent care, hospital, or prison...) When possible be specific @ -No Did you speak to anyone other than the patient for history (EMS, parent, family, police, friend...)? What history was obtained from this source @ -No Did you review nursing and triage notes (agree or disagree)? Why? @ -I reviewed and agree with nursing and triage notes Were old charts reviewed (outside hosp., previous admission, EMS record, old EKG, old radiological studies, urgent care reports/EKG's, prison records)? Report findings @ -Today's EKG compared with EKG from June 2022 with no obvious acute significant change. Differential Diagnosis (chest pain, altered mental status, abdominal pain women, abdominal pain men, vaginal bleeding, weakness, fever, dyspnea, syncope, headache, dizziness, GI bleed, back pain, seizure, CVA, palpatations, mental health, musculoskeletal)? @ -Differential CVA Ischemic stroke, hemorrhagic stroke, brain tumor, atypical migraine, Wernicke's encephalopathy, seizure, multiple sclerosis, meningitis, encephalitis, hypogly cemia, Guillain-Simons, electrolytes disturbance, myasthenia gravis.... This is not meant to be an all-inclusive list EKG interpreted by me (3pts min.). @ -As above X-rays interpreted by me (1pt min.). @ -Chest x-ray remarkable for possible left-sided pneumonia. CT interpreted by me (1pt min.). @ -CT brain, CT angiogram head and neck negative for any obvious acute intracranial process. Does have some minor stenosis of multiple arteries. U/S interpreted by me (1pt. min.). @ -Pending What testing was considered but not performed or refused? (CT, X-rays, U/S, labs)? Why? @ -None What meds were considered but not given or refused? Why? @ -None Did you discuss the management of the patient with other professionals (professionals i.e. , PA, PHARMACY MESSENGER, lab, RT, psych nurse, bilingual social worker, scientific software engineer, teacher, fire information officer, case specialist)? Give summary @ -Discussed with neurocritical quick resident care assistant, Dr. Golden that was in agreement with the plan for medical management. Was smoking cessation discussed for >3mins.? @ -No Was critical care preformed (if so, how long)? @ -Yes, 32 minutes Were there social determinants of health that impacted care today? How? (Homelessness, low income, unemployed, alcoholism, drug addiction, transportation, low edu. Level, literacy, decrease access to med. care, custodial, rehab)? @ -No Was there de-escalation of care discussed even if they declined (Discuss DNR or withdrawal of care, Hospice)? DNR status @ -No What co-morbidities impacted this encounter? (DM, HTN, Smoking, COPD, CAD, Cancer, CVA, ARF, Chemo, Hep., AIDS, mental health diagnosis, sleep apnea, morbid obesity)? @ -None Was patient admitted / discharged? Hospital course, mention meds given and route, prescriptions, significant lab abnormalities, going to OR and other pertinent info. @ -Presents for neurological complaints. Family and EMS concern for possible stroke. Had strokelike symptoms prior to arrival that have all since resolved. We will obtain CT and CT angiogram and activated as a code stroke. Patient in agreement this plan. Also has been having some productive cough and nausea. Vital signs remarkable for a fever of 100.8. Mildly tachycardic likely seco ndary to the fever. Concern for COPD exacerbation patient given IV Solu-Medrol as well as fluids and breathing treatment. CT imaging returned negative for any obvious acute process. Chest x-ray shows left lower lobe pneumonia. Labs remarkable for leukocytosis of 14. Elevated LFTs and alk phos present as well. Viral swabs negative. Urine still pending. Patient started on antibiotics for pneumonia, azithromycin and Zosyn. Patient also given IV Solu-Medrol every 8 hours as well as breathing treatments. I discussed the results with the patient and due to him also having the nausea and vomiting with elevated LFTs and alk phos I did recommend we obtain a gallbladder ultrasound. Patient was in agreement this plan. At this time, gallbladder ultrasound is still pending. Signed out to Dr. Colon. Patient will be admitted. Undiagnosed new problem with uncertain prognosis? @ -No Drug Therapy requiring intensive monitoring for toxicity (Heparin, Nitro, Insulin, Cardizem)? @ -No Were any procedures done? @ -No Diagnosis/symptom? @ -Pneumonia, TIA Acute, or Chronic, or Acute on Chronic? @ -Acute Uncomplicated (without systemic symptoms) or Complicated (systemic symptoms)? @ -Complicated Side effects of treatment? @ -None Exacerbation, Progression, or Severe Exacerbation] @ -No Poses a threat to life or bodily function? @ -Yes (Charli Taveras) - Lab Data Lab Results 04/22/25 04/22/25 04/22/25 Range/Units 05:45 05:45 05:45 WBC 14.43 H (4.50-10.00) 10*3/uL RBC 5.82 H (4.40-5.60) 10*6/uL Hgb 16.7 (13.0-17.0) g/dL Hct 49.5 (39.6-50.0) % MCV 85.1 (80.0-97.0) fL MCH 28.7 (27.0-32.0) pg MCHC 33.7 (32.0-37.0) g/dL Plt Count 105 L (140-440) 10*3/uL MPV 11.9 (9.5-12.2) fL Immature Gran % (Auto) 0.9 % Neutrophils % 91.4 % Lymphocytes % 2.6 % Monocytes % 4.7 % Eosinophils % 0.1 % Basophils % 0.3 % Immature Gran # 0.13 H (0.00-0.04) 10*3/uL Neutrophils # 13.17 H (1.80-7.70) 10*3/uL Lymphocytes # 0.38 L (0.90-5.00) 10*3/uL Monocytes # 0.68 (0.20-1.00) 10*3/uL Eosinophils # 0.02 L (0.04-0.35) 10*3/uL Basophils # 0.05 (0.00-0.10) 10*3/uL Immature Plt Fraction 4.9 (1.1-6.1) % PT 13.2 H (10.0-12.5) sec INR 1.2 H (<1.2) APTT 22.9 (22.0-30.0) sec Sodium (137-145) mmol/L Potassium (3.5-5.1) mmol/L Chloride (98-107) mmol/L Carbon Dioxide (22-30) mmol/L Anion Gap mmol/L BUN (9-20) mg/dL Creatinine (0.66-1.25) mg/dL Est GFR (CKD-EPI)AfAm (>60 ml/min/1.73 sqM) Est GFR (CKD-EPI)NonAf (>60 ml/min/1.73 sqM) Glucose (74-99) mg/dL POC Glucose (mg/dL) 195 H (70-110) mg/dL POC Glu Interior Designer ID [address]al [address]imated [address] Glu mg/dL mg/dL Hemoglobin A1c (<=6.0) % Calcium (8.4-10.2) mg/dL Magnesium (1.6-2.3) mg/dL Total Bilirubin (0.2-1.3) mg/dL AST (17-59) U/L ALT (4-49) U/L Alkaline Phosphatase (38-126) U/L Creatine Kinase (55-170) U/L Total Protein (6.3-8.2) g/dL Albumin (3.5-5.0) g/dL Influenza Type A (PCR) (Not Detectd) Influenza Type B (PCR) (Not Detectd) RSV (PCR) (Not Detectd) SARS-CoV-2 (PCR) (Not Detectd) 04/22/25 04/22/25 04/22/25 Range/Units 05:45 05:45 06:03 WBC (4.50-10.00) 10*3/uL RBC (4.40-5.60) 10*6/uL Hgb (13.0-17.0) g/dL Hct (39.6-50.0) % MCV (80.0-97.0) fL MCH (27.0-32.0) pg MCHC (32.0-37.0) g/dL Plt Count (140-440) 10*3/uL MPV (9.5-12.2) fL Immature Gran % (Auto) % Neutrophils % % Lymphocytes % % Monocytes % % Eosinophils % % Basophils % % Immature Gran # (0.00-0.04) 10*3/uL Neutrophils # (1.80-7.70) 10*3/uL Lymphocytes # (0.90-5.00) 10*3/uL Monocytes # (0.20-1.00) 10*3/uL Eosinophils # (0.04-0.35) 10*3/uL Basophils # (0.00-0.10) 10*3/uL Immature Plt Fraction (1.1-6.1) % PT (10.0-12.5) sec INR (<1.2) APTT (22.0-30.0) sec Sodium 136 L (137-145) mmol/L Potassium 4.0 (3.5-5.1) mmol/L Chloride 105 (98-107) mmol/L Carbon Dioxide 20 L (22-30) mmol/L Anion Gap 11 mmol/L BUN 26 H (9-20) mg/dL Creatinine 1.15 (0.66-1.25) mg/dL Est GFR (CKD-EPI)AfAm 70 (>60 ml/min/1.73 sqM) Est GFR (CKD-EPI)NonAf 60 (>60 ml/min/1.73 sqM) Glucose 204 H (74-99) mg/dL POC Glucose (mg/dL) (70-110) mg/dL POC Glu Interior Designer ID Estimated Ave Glu mg/dL 189 mg/dL Hemoglobin A1c 8.2 H (<=6.0) % Calcium 9.5 (8.4-10.2) mg/dL Magnesium 1.4 L (1.6-2.3) mg/dL Total Bilirubin 2.0 H (0.2-1.3) mg/dL AST 474 H (17-59) U/L ALT 367 H (4-49) U/L Alkaline Phosphatase 187 H (38-126) U/L Creatine Kinase 77 (55-170) U/L Total Protein 6.7 (6.3-8.2) g/dL Albumin 3.9 (3.5-5.0) g/dL Influenza Type A (PCR) Not Detected (Not Detectd) Influenza Type B (PCR) Not Detected (Not Detectd) RSV (PCR) Not Detected (Not Detectd) SARS-CoV-2 (PCR) Not Detected (Not Detectd) - EKG Data EKG Comments: 12-lead Electrocardiogram Interpretation Note EKG was reviewed and interpreted by myself. 12-lead ECG performed at 0555 is interpreted by me as revealing tachycardia with occasional PVC at a rate of 104 beats per minute. [place] is normal. [place] interval is 154 ms, QRS duration is 90 ms, QTc is 392 ms.. There were no ST or T wave abnormalities to suggest myocardial ischemia or injury. R wave progression across the precordium was satisfactory. By my interpretation this EKG is non-diagnostic for acute ischemia. (Charli Taveras) Critical Care Time Critical Care Time: Yes Total Critical Care Time: 32 <Charli Taveras - Last Filed: 04/22/25 21:34> Disposition Is patient prescribed a controlled substance at d/c from ED?: No Time of Disposition: 08:15 <Eder Colon - Last Filed: 04/22/25 08:15> <Charli Taveras - Last Filed: 04/22/25 21:34> Clinical Impression: Transient cerebral ischemia, PNA (pneumonia) Disposition: ADMITTED IP TO THIS HOSP Condition: Stable
[2025-04-22] MEDS: ONDANSETRON 4 MG/2 ML VIAL IVP STA (06:22)
[2025-04-22 06:29] LABS: Basophils # (A) 0.05 10*3/uL (0.00-0.10); Basophils % (A) 0.3 %; Eosinophils # (A) 0.02 10*3/uL (0.04-0.35); Eosinophils % (A) 0.1 %; HCT 49.5 % (39.6-50.0); HGB 16.7 g/dL (13.0-17.0); Immature Platelet Fraction 4.9 % (1.1-6.1); Lymphocytes # (A) 0.38 10*3/uL (0.90-5.00); Lymphocytes % (A) 2.6 %; MCH 28.7 pg (27.0-32.0); MCHC 33.7 g/dL (32.0-37.0); MCV 85.1 fL (80.0-97.0); Mean Platelet Volume 11.9 fL (9.5-12.2); Monocytes # (A) 0.68 10*3/uL (0.20-1.00); Monocytes % (A) 4.7 %; Neutrophils # (A) 13.17 10*3/uL (1.80-7.70); Neutrophils % (A) 91.4 %; Platelet Count 105 10*3/uL (140-440); RBC 5.82 10*6/uL (4.40-5.60); RDW 14.6 % (11.5-14.5); WBC 14.43 10*3/uL (4.50-10.00)
--- NOTE | 2025-04-22 06:30 | XR ---
EXAM: XR Chest, 1 View CLINICAL HISTORY: ITS.REASON XR Reason: altered mental status TECHNIQUE: Frontal view of the chest. COMPARISON: X-ray dated 07/12/2022. FINDINGS: Lungs: Opacification of the left lung base. The right lung is clear. The lungs are symmetrically hypoinflated. Pleural space: Unremarkable. No pneumothorax. Heart: Mild enlargement of the cardiac silhouette. Mediastinum: Unremarkable. Normal mediastinal contour. Bones/joints: Degenerative changes are seen within the spine and shoulders. No acute fracture. IMPRESSION: Vascular crowding versus left lower lobe pneumonia.
[2025-04-22] MEDS: SODIUM CHLORIDE 0.9% 1,000 ML IV STA ×2 (06:35→09:19)
[2025-04-22] MEDS: ACETAMINOPHEN TAB 500 MG TAB PO STA (06:36)
[2025-04-22] MEDS: methylPREDNISolone SOD SUCCI 125 MG/2 ML VIAL IV STA (06:38)
[2025-04-22 06:39] LABS: ALT 367 U/L (4-49); African American GFR (CKD) 70 (>60 ml/min/1.73 sqM); Albumin 3.9 g/dL (3.5-5.0); Anion Gap 11 mmol/L; Blood Urea Nitrogen 26 mg/dL (9-20); Calcium 9.5 mg/dL (8.4-10.2); Carbon Dioxide 20 mmol/L (22-30); Chloride 105 mmol/L (98-107); Creatine Kinase 77 U/L (55-170); Glucose 204 mg/dL (74-99); Non-African American GFR(CKD) 60 (>60 ml/min/1.73 sqM); Sodium 136 mmol/L (137-145); Total Protein 6.7 g/dL (6.3-8.2)
[2025-04-22] MEDS: IPRATROPIUM-ALBUTEROL 3 ML NEB INHALATION STA (06:39)
[2025-04-22 06:40] LABS: AST 474 U/L (17-59); Alkaline Phosphatase 187 U/L (38-126); Magnesium 1.4 mg/dL (1.6-2.3)
--- NOTE | 2025-04-22 06:44 | CT ---
EXAM: CT Angiography Head and Neck With Intravenous Contrast CLINICAL HISTORY: ITS.REASON CT Reason: Neuro deficit, acute, stroke suspected TECHNIQUE: [place] [facility] [place]/head and neck CT angiography protocol performed with intravenous contrast. CTDI is 28.8 mGy and DLP is 28.8 mGy-cm. This CT exam was performed using one or more of the following dose reduction techniques: automated exposure control, adjustment of the mA and/or kV according to patient size, and/or use of iterative reconstruction technique. MIP reconstructed images were created and reviewed. COMPARISON: None. FINDINGS: HEAD: Right anterior cerebral artery: Unremarkable. No occlusion or significant stenosis. Anterior communicating artery is present. No aneurysm. Right middle cerebral artery: Unremarkable. No occlusion or significant stenosis. No aneurysm. Right posterior cerebral artery: Unremarkable. No occlusion or significant stenosis. No aneurysm. Right intracranial internal carotid artery: Mild narrowing of the transverse segment of the right internal carotid artery extending to the clinoid segment caused by atherosclerotic calcifications. Right intracranial vertebral artery: Unremarkable. No significant stenosis. No dissection or occlusion. Left anterior cerebral artery: Unremarkable. No occlusion or significant stenosis. No aneurysm. Left middle cerebral artery: Unremarkable. No occlusion or significant stenosis. No aneurysm. Left posterior cerebral artery: Unremarkable. No occlusion or significant stenosis. No aneurysm. Left intracranial internal carotid artery: Mild narrowing of the transverse segment of the left internal carotid artery extending to the clinoid segment caused by atherosclerotic calcifications. Left intracranial vertebral artery: Unremarkable. No significant stenosis. No dissection or occlusion. Basilar artery: Unremarkable. No occlusion or significant stenosis. No aneurysm. Other vasculature: Atherosclerotic disease. No vascular malformation. NECK: Right common carotid artery: Unremarkable. No significant stenosis. No dissection or occlusion. Right extracranial internal carotid artery: Mild (33%) stenosis of the proximal right internal carotid artery caused by atherosclerotic calcifications. No dissection or occlusion. Right external carotid artery: Unremarkable. No occlusion. Right extracranial vertebral artery: Unremarkable. No significant stenosis. No dissection or occlusion. Left common carotid artery: Unremarkable. No significant stenosis. No dissection or occlusion. Left extracranial internal carotid artery: Atherosclerotic calcifications at the proximal left internal carotid artery without evidence of flow-limiting stenosis per NASCET criteria. Left external carotid artery: Unremarkable. No occlusion. Left extracranial vertebral artery: Unremarkable. No significant stenosis. No dissection or occlusion. Thyroid: Atrophic thyroid. Consider correlation with laboratory values. Lung apices: Unremarkable as visualized. HEAD and NECK: Bones/joints: Degenerative changes in the spine. No discrete lytic or blastic abnormalities. Soft tissues: Unremarkable. CAROTID STENOSIS REFERENCE USING NASCET CRITERIA: % ICA stenosis = (1 - narrowest ICA diameter/diameter of distal cervical ICA) x 100. Mild - <50% stenosis. Moderate - 50-69% stenosis. Severe - 70-94% stenosis. Near occlusion - 95-99% stenosis. Occluded - 100% stenosis. IMPRESSION: 1. Mild (33%) stenosis of the proximal right internal carotid artery caused by atherosclerotic calcifications. 2. Atherosclerotic calcifications at the proximal left internal carotid artery without evidence of flow-limiting stenosis per NASCET criteria. 3. Mild narrowing of the transverse segment of the right internal carotid artery extending to the clinoid segment caused by atherosclerotic calcifications. 4. Mild narrowing of the transverse segment of the left internal carotid artery extending to the clinoid segment caused by atherosclerotic calcifications. 5. Otherwise, no evidence of flow-limiting stenosis within the head or neck. 6. No evidence of aneurysm or dissection. 7. Consider MRI if there is further concern. 8. Atrophic thyroid. Consider correlation with laboratory values.
--- NOTE | 2025-04-22 06:45 | CT ---
EXAM: CT Head Without Intravenous Contrast CLINICAL HISTORY: ITS.REASON CT Reason: Neuro deficit, acute, stroke suspected TECHNIQUE: Axial computed tomography images of the head/brain without intravenous contrast. CTDI is 49.2 mGy and DLP is 1247 mGy-cm. This CT exam was performed using one or more of the following dose reduction techniques: automated exposure control, adjustment of the mA and/or kV according to patient size, and/or use of iterative reconstruction technique. COMPARISON: No relevant prior studies available. FINDINGS: Limitations: Limited evaluation given lack of axial imaging. Despite this, no acute intracranial abnormality. Consider repeat imaging or MRI if there is further concern. Brain: Areas of decreased attenuation in the deep cerebral white matter are consistent with small vessel ischemic/degenerative changes. The cerebral and cerebellar sulci are prominent consistent with brain atrophy. No hemorrhage. Ventricles: Unremarkable. No ventriculomegaly. Bones/joints: Unremarkable. No acute fracture. Soft tissues: Unremarkable. Vasculature: Atherosclerotic disease. Sinuses: Unremarkable as visualized. Mastoid air cells: Unremarkable as visualized. No mastoid effusion. IMPRESSION: 1. Limited evaluation given lack of axial imaging. Despite this, no acute intracranial abnormality. Consider repeat imaging or MRI if there is further concern. 2. Small vessel ischemic/degenerative changes. 3. Cerebral and cerebellar atrophy.
[2025-04-22] MEDS ORDERED: PNEUMONIA PROTOCOL UTILIZED 1 EACH MISC PO PRN (07:03)
[2025-04-22 07:06] LABS: INR 1.2 (<1.2); Partial Thromboplastin Time 22.9 sec (22.0-30.0); Prothrombin Time 13.2 sec (10.0-12.5)
[2025-04-22 07:06] LABS: Influenza A Not Detected (Not Detectd); Influenza B Not Detected (Not Detectd); RSV Not Detected (Not Detectd)
--- NOTE | 2025-04-22 07:41 | US ---
EXAMINATION TYPE: US gallbladder DATE OF EXAM: 04/22/2025 COMPARISON: 07/05/2023 CLINICAL INDICATION: Male, 79 years old with history of abd pain; pain and N/V TECHNIQUE: Grayscale and color Doppler imaging of the right upper quadrant was performed. FINDINGS: EXAM MEASUREMENTS: Liver Length: 17.6 cm Gallbladder Wall: 0.3 cm CBD: 7.8 mm Right Kidney: 8.5 x 3.8 x 5.2 cm Pancreas: obscured by bowel gas Liver: Echogenic and difficult to penetrate Gallbladder: A few tiny shadowing stones seen. No abnormal distention or surrounding fluid. Evidence for sonographic Moya's sign: no CBD: Mildly dilated Right Kidney: Small in size. No hydronephrosis. IMPRESSION: 1. Borderline hepatomegaly at 17.6 cm with moderate to severe hepatic steatosis. Appropriate clinical management is advised. 2. Small gallstones. No ancillary findings of acute cholecystitis. 3. Mildly dilated bile duct at 7.8 mm may be acceptable for patient's age. Correlate with alkaline ph osphatase and bilirubin levels. [facility], , 04/22/2025 7:39 AM
[2025-04-22] MEDS ORDERED: NALOXONE 0.4 MG/ML 1 ML VIAL IV PRN (08:13)
[2025-04-22] MEDS: methylPREDNISolone SOD SUCCI 40 MG/ML 1 ML VIAL IV SCH (08:44)
[2025-04-22] MEDS: SODIUM CHLORIDE 0.9% 1,000 ML IV ONE (08:49)
[2025-04-22] MEDS: MAGNESIUM SULFATE-D5W PMX 1 GM in DEXTROSE/WATER 1 100ML.BAG IVPB ONE (08:50)
[2025-04-22] MEDS: PIPERACILLIN-TAZOBACTAM 3.375 GM in SODIUM CHLORIDE 0.9% 100 ML IVPB STA (08:55)
[2025-04-22] MEDS: ASPIRIN 325 MG TAB PO STA (09:17)
[2025-04-22] MEDS: AZITHROMYCIN 500 MG in SODIUM CHLORIDE 0.9% 250 ML IVPB STA (10:12)
[2025-04-22 11:23] LABS: Appearance,Urine Clear (Clear); Bilirubin,Urine Negative (Negative); Blood,Urine Moderate (Negative); Color,Urine Yellow; Glucose,Urine (UA) 4+ (Negative); Ketones,Urine Trace (Negative); Leukocyte Esterase,Urine Negative (Negative); Mucus,Urine Rare /hpf; Nitrite,Urine Negative (Negative); PH, Urine 5.5 (5.0-8.0); Protein,Urine Trace (Negative); RBC,Urine 1 /hpf (0-5); Squamous Epithelial Cell,Urine <1 /hpf (0-4); Urobilinogen,Urine <2.0 mg/dL (<2.0); WBC,Urine <1 /hpf (0-5)
[2025-04-22 11:36] LABS: Amphetamine Screen,Urine Not Detected (NotDetected); Barbiturate Screen,Urine Not Detected (NotDetected); Benzodiazepines Screen,Urine Detected (NotDetected); Cocaine Screen,Urine Not Detected (NotDetected); Methadone Screen, Urine Not Detected (NotDetected); Opiate Screen,Urine Not Detected (NotDetected); Oxycodone Screen, Urine Not Detected (NotDetected); Phencyclidine Screen,Urine Not Detected (NotDetected); Tricyclic Antidepressant,Urine Not Detected (NotDetected); Urn Cannabinoid Scrn Not Detected (NotDetected)
[2025-04-22] MEDS: IPRATROPIUM-ALBUTEROL 3 ML NEB INHALATION SCH (13:52)
[2025-04-22] MEDS ORDERED: DEXTROSE 50% SYRINGE 50 ML IVP PRN ×2 (15:41)
--- NOTE | 2025-04-22 15:42 | P.HPIM ---
History of Present Illness H&P Date: 04/22/25 Chief Complaint: Generalized weakness 79-year-old male with medical history of hypertension, hyperlipidemia, MS, diabetes, BPH presented for evaluation of generalized weakness. According to his family, patient has progressive MS and has been increasingly weak over the last 1 to 2 weeks. At this time he is not ambulatory but was at baseline able to manage with a walker. He lives at home with friends who supervise him 19/05. Patient himself is a poor historian, but according to chart review, apparently patient also complained of left-sided weakness worse than baseline. He also complained of productive cough, nausea and vomiting. At present his only complaint is generalized weakness, back pain, lower extremity weakness. He did not complain of fevers, but did report chills. He denies chest pain, dyspnea. He reports abdominal pain. He denies diarrhea, constipation. In the emergency room, patient was febrile to 100.8, 125/65, heart rate 105, 91% on room air. CBC was remarkable for leukocytosis to 14.4 with left shift. Basic metabolic panel showed sodium of 136, CO2 of 20, BUN of 26, creatinine of 1.15. Magnesium was low at 1.4. Liver function test show total bilirubin of 2.0, AST of 474, ALT of 367, alkaline phosphatase of 187. INR is 1.2. Urina lysis shows 4+ glucose, trace protein, trace ketones, moderate blood urine talk screen is positive for benzodiazepines. Influenza A, B, RSV, COVID were negative. EKG demonstrated sinus tachycardia with right axis deviation, occasional PVCs. Chest x-ray shows low lung volumes, appearance of retrocardiac opacity, overall hazy lung appearance. CT angiography shows mild stenosis of the proximal right RCA, calcifications of the left ICA without flow-limiting stenosis, mild narrowing of the transverse segment of the right ICA, left ICA. Brain CT shows no acute intracranial abnormality, but was limited given lack of axial imaging. Gallbladder ultrasound shows borderline hepatomegaly at 17.6 cm with moderate to severe hepatic steatosis, small gallstones, mildly dilated bile duct at 7.8 mm. All Systems reviewed and pertinent positives and negatives noted in HPI, all other symptoms are negative Gen: In NAD, non-toxic HEENT: normocephalic, atraumatic, hearing acuity is intant, mucous membranes moist CVS: perfusing all extremities well, bilateral lower extremity pitting edema, regular rate and rhythm, no appreciable murmurs Respiratory: symmetric chest expansion, no accessory muscle use, GI: soft, NTTP, ND, : no suprapubic tenderness, no CVA tenderness MSK/Derm: no rashes, cyanosis Neuro: CN II-XII intact, no motor weakness, Labs and imaging as above Assessment/plan: Sepsis Left lower lobe community-acquired pneumonia - Admit to inpatient, telemetry - Continue Zosyn, azithromycin - Obtain procalcitonin - Follow-up blood cultures - DuoNebs scheduled and as needed - Discontinue steroids - IV fluids: LR at 75 cc/h Hyperbilirubinemia Elevated liver enzymes Biliary dilation - Continue to monitor - General Surgery consultation - N.p.o. at midnight except for medications Generalized weakness History of MS, progressive - Neurology consulted by emergency room - Not on any home medications - PT/OT consult Hypertension Hyperlipidemia Diabetes type 2 BPH -Home medications reviewed and reconciled - Added medium dose sliding scale Patient is full code DVT prophylaxis with heparin 3 times daily Past Medical History Past Medical History: Coronary Artery Disease (CAD), Chest Pain / Angina, Dementia, Diabetes Mellitus, Deep Vein Thrombosis (DVT), GERD/Reflux, GI Bleed, Hyperlipidemia, Hypertension, Musculoskeletal Disorder, Neurologic Disorder, Prostate Disorder, Thyroid Disorder, Vascular Disorder Additional Past Medical History / Comment(s): Insulin-dependent diabetes mellitus, peripheral vascular disease, chronic sinus disease, gout, previous bouts of GI bleed, questionable history of multiple sclerosis although the patient has not demonstrated any neurologic deficits, obesity, hypothyroidism, hyperlipidemia Other HX: IDDM, pt told many yrs ago he had multiple sclerosis but has had no symptoms in years, PVD, sinus problems, gout, hematuria related to coumadin, GI bleed with transfusion r/t coumadin, cramps to bilateral lower legs frequently, DVT to L lower leg in 2005, BPH, hypothyroid, L arm fx in past. History of Any Multi-Drug Resistant Organisms: None Reported Past Surgical History: Back Surgery, Heart Catheterization With Stent, Orthopedic Surgery Additional Past Surgical History / Comment(s): 2001 cardiac cath with stent, EGD/colonoscopy with benign polyps, hemorrhoid surgery x 2, low back surgery, implants bilateral great toes, L knee arthroscopy, R finger amp 1st joint. Past Anesthesia/Blood Transfusion Reactions: No Reported Reaction Additional Past Anesthesia/Blood Transfusion Reaction / Comment(s): Pt has received blood in past without reaction. Date of Last Stent Placement:: 2001 [place] Past Psychological History: Anxiety, Depression Smoking Status: Current every day smoker Past Alcohol Use History: Occasional Past Drug Use History: None Reported - Past Family History Father Family Medical History: No Reported History Additional Family Medical History / Comment(s): Thierry due to a fall when he was 56 yrs old. Mother Family Medical History: Dementia Additional Family Medical History / Comment(s): Mother lived to be 99yrs old. Medications and Allergies Home Medications Medication Instructions Recorded Confirmed Type Aspirin EC [Ecotrin] 325 mg PO DAILY 06/20/16 04/22/25 History Atorvastatin [Lipitor] 20 mg PO HS 06/20/16 04/22/25 History Sertraline [Zoloft] 50 mg PO DAILY 06/20/16 04/22/25 History Tamsulosin HCl [Flomax] 0.4 mg PO HS 06/20/16 04/22/25 History atenoloL 25 mg PO BID 06/20/16 04/22/25 History Pantoprazole [Protonix] 40 mg PO DAILY #30 tablet.dr 08/08/16 04/22/25 Rx metFORMIN HCL ER [Glucophage XR] 500 mg PO BID 10/24/21 04/22/25 History Dapagliflozin Propanediol [Farxiga] 10 mg PO DAILY 01/28/22 04/22/25 History Colchicine 0.6 mg PO DAILY 07/12/22 04/22/25 History icosapent ethyL [Icosapent Ethyl] 2 gm PO BID 07/12/22 04/22/25 History Dulaglutide [Trulicity] 3 mg SQ TH 04/22/25 04/22/25 History Ergocalciferol (Vitamin D2) 1,250 mcg PO Q7D 04/22/25 04/22/25 History [Drisdol (GEQ) 1,250 MCG (50,000 IU)] Folic Acid 1 mg PO DAILY 04/22/25 04/22/25 History Insulin Glargine,Hum.rec.anlog 30 units SQ HS 04/22/25 04/22/25 History [Lantus Solostar Pen] Levothyroxine Sodium [Synthroid] 137 mcg PO DAILY 04/22/25 04/22/25 History tiZANidine [Zanaflex] 2 mg PO TID PRN 04/22/25 04/22/25 History Allergies Allergy/AdvReac Type Severity Reaction Status Date / Time No Known Allergies Allergy Verified 04/22/25 10:53 Physical Exam Osteopathic Statement: *. No significant issues noted on an osteopathic structural exam other than those noted in the History and Physical/Consult. Vitals: Vital Signs Temp Pulse Resp BP Pulse Ox 04/22/25 14:00 87 18 172/83 96 04/22/25 11:26 99 F 87 20 125/65 91 L 04/22/25 08:59 104 H 17 128/70 93 L 04/22/25 06:46 105 H 04/22/25 06:39 101 H 04/22/25 05:46 100.8 F H 109 H 18 158/77 94 L Intake and Output 04/22/25 04/22/25 04/22/25 06:59 14:59 22:59 Other: Weight 91.943 kg Results CBC & Chem 7: 04/22/25 05:45 04/22/25 05:45 Labs: Abnormal Lab Results - Last 24 Hours (Table) 04/22/25 04/22/25 04/22/25 Range/Units 05:45 05:45 05:45 WBC 14.43 H (4.50-10.00) 10*3/uL RBC 5.82 H (4.40-5.60) 10*6/uL Plt Count 105 L (140-440) 10*3/uL Immature Gran # 0.13 H (0.00-0.04) 10*3/uL Neutrophils # 13.17 H (1.80-7.70) 10*3/uL Lymphocytes # 0.38 L (0.90-5.00) 10*3/uL Eosinophils # 0.02 L (0.04-0.35) 10*3/uL PT 13.2 H (10.0-12.5) sec INR 1.2 H (<1.2) Sodium (137-145) mmol/L Carbon Dioxide (22-30) mmol/L BUN (9-20) mg/dL Glucose (74-99) mg/dL POC Glucose (mg/dL) 195 H (70-110) mg/dL Magnesium (1.6-2.3) mg/dL Total Bilirubin (0.2-1.3) mg/dL AST (17-59) U/L ALT (4-49) U/L Alkaline Phosphatase (38-126) U/L Ur Specific [place] (1.001-1.035) Urine Protein (Negative) Urine Glucose (UA) (Negative) Urine Ketones (Negative) Urine Blood (Negative) Urine Mucus (None) /hpf U Benzodiazepines Scrn (NotDetected) 04/22/25 04/22/25 Range/Units 05:45 11:14 WBC (4.50-10.00) 10*3/uL RBC (4.40-5.60) 10*6/uL Plt Count (140-440) 10*3/uL Immature Gran # (0.00-0.04) 10*3/uL Neutrophils # (1.80-7.70) 10*3/uL Lymphocytes # (0.90-5.00) 10*3/uL Eosinophils # (0.04-0.35) 10*3/uL PT (10.0-12.5) sec INR (<1.2) Sodium 136 L (137-145) mmol/L Carbon Dioxide 20 L (22-30) mmol/L BUN 26 H (9-20) mg/dL Glucose 204 H (74-99) mg/dL POC Glucose (mg/dL) (70-110) mg/dL Magnesium 1.4 L (1.6-2.3) mg/dL Total Bilirubin 2.0 H (0.2-1.3) mg/dL AST 474 H (17-59) U/L ALT 367 H (4-49) U/L Alkaline Phosphatase 187 H (38-126) U/L Ur Specific [place] 1.050 H (1.001-1.035) Urine Protein Trace H (Negative) Urine Glucose (UA) 4+ H (Negative) Urine Ketones Trace H (Negative) Urine Blood Moderate H (Negative) Urine Mucus Rare H (None) /hpf U Benzodiazepines Scrn Detected H (NotDetected)
[2025-04-22] MEDS: PIPERACILLIN-TAZOBACTAM 3.375 GM in SODIUM CHLORIDE 0.9% 100 ML IVPB SCH (16:22)
[2025-04-22] MEDS: LACTATED RINGERS 1,000 ML IV SCH (16:22)
[2025-04-22] MEDS: MORPHINE SULFATE 4 MG/ML SYRINGE IVP PRN (16:27)
[2025-04-22] MEDS: HEPARIN SODIUM,PORCINE 5,000 UNIT/ML 1 ML VIAL SQ SCH (16:27)
--- NOTE | 2025-04-22 18:40 | P.CNNES ---
History of Present Illness Consult date: 04/22/25 Requesting physician: Eder Colon Reason for Consult: TIA, hx of MS History of Present Illness: Patient is a 79-year-old male with history of multiple sclerosis, came to the hospital by ambulance early interventionist today at 5:43 AM for body weakness, slurring words and throwing up. Patient's son was also present at the bedside, who mentioned that his symptoms started at 4 AM when he could not stand, whole body felt weak, incoherent, slurring his words and started throwing up on himself. He had some trouble using the left arm. Also complaining of pain in the left arm, especially when he supinates his left hand. It hurts from elbow down to the hand. His left leg also hurts. Patient's son mentions that he was yesterday doing fine, got up, walks with his cane or rollator. However his condition changed acutely last night at 4 AM. Patient had similar episodes a couple times, few years ago. Each time he ends up in the hospital gets antibiotics and gets better. Patient send mentions that the doctors feel that this is probably MS related. At the rear end. Patient's son mentions that his MS have progressed in the last 2 and half years. EMS flowsheet not available in the chart. Vital signs on arrival blood pressure 158/77, pulse rate 109, temperature 100.8 orally. Blood test shows WBC 14.43, normal hemoglobin, platelets 105. INR 1.2. Sodium 136. Potassium 4.0, BUN 26, creatinine 1.15. AST 474, ALT 367. UA negative. Urine drug screen positive for benzodiazepine. Influenza, RSV and coronavirus PCR negative. EKG showed sinus tachycardia with occasional ventricular premature complexes. Chest x-ray showed vascular crowding versus left lower lobe pneumonia. CT head was limited evaluation given lack of axial imaging. Despite this, no acute intracranial abnormality. Consider repeat imaging or MRI if there is further concern. Small vessel ischemic/degenerative changes. Cerebral and cerebellar atrophy. I personally reviewed CT head, and there is evidence of significant small vessel disease, prominence of the ventricles as well as cortical atrophy. No acute process. Gallbladder ultrasound revealed borderline hepatomegaly at 17.6 cm with moderate to severe hepatic steatosis. Small gallstones. No ancillary findings of acute cholecystitis. Mildly dilated bile duct at 7.8 mm may be acceptable for patient's age. He has been smoking half pack per day in the last 4 years. Patient has remote history of multiple sclerosis that was diagnosed 40-45 years ago. He had about 1-2 flareups in the past, but none for 30 years. He was able to drive, walks with a cane. He had back surgery couple times. Also had history of hernias. He has never tried disease modifying agent. Patient has history of diabetes for 6 years. Patient has hypertension but no hyperlipidemia. Patient has smoked 1 pack per day since he was age 17. He used to drink heavily from age [age], after which he quit. He drinks alcohol very rarely. Patient does take aspirin 325 mg daily, taking for last 60 years. Patient's son mentions that he also has developed some bedsore Review of Systems All pertinent positive and negative review of systems mentioned in the HPI, otherwise unremarkable. Past Medical History Past Medical History: Coronary Artery Disease (CAD), Chest Pain / Angina, Dementia, Diabetes Mellitus, Deep Vein Thrombosis (DVT), GERD/Reflux, GI Bleed, Hyperlipidemia, Hypertension, Musculoskeletal Disorder, Neurologic Disorder, Prostate Disorder, Thyroid Disorder, Vascular Disorder Additional Past Medical History / Comment(s): Insulin-dependent diabetes mellitus, peripheral vascular disease, chronic sinus disease, gout, previous bouts of GI bleed, questionable history of multiple sclerosis although the patient has not demonstrated any neurologic deficits, obesity, hypothyroidism, hyperlipidemia Other HX: IDDM, pt told many yrs ago he had multiple sclerosis but has had no symptoms in years, PVD, sinus problems, gout, hematuria related to coumadin, GI bleed with transfusion r/t coumadin, cramps to bilateral lower legs frequently, DVT to L lower leg in 2005, BPH, hypothyroid, L arm fx in past. History of Any Multi-Drug Resistant Organisms: None Reported Past Surgical History: Back Surgery, Heart Catheterization With Stent, Orthopedic Surgery Additional Past Surgical History / Comment(s): 2001 cardiac cath with stent, EGD/colonoscopy with benign polyps, hemorrhoid surgery x 2, low back surgery, implants bilateral great toes, L knee arthroscopy, R finger amp 1st joint. Past Anesthesia/Blood Transfusion Reactions: No Reported Reaction Additional Past Anesthesia/Blood Transfusion Reaction / Comment(s): Pt has received blood in past without reaction. Date of Last Stent Placement:: 2001 [place] Past Psychological History: Anxiety, Depression Smoking Status: Current every day smoker Past Alcohol Use History: Occasional Past Drug Use History: None Reported - Past Family History Father Family Medical History: No Reported History Additional Family Medical History / Comment(s): Thierry due to a fall when he was 56 yrs old. Mother Family Medical History: Dementia Additional Family Medical History / Comment(s): Mother lived to be 99yrs old. Medications and Allergies Home Medications Medication Instructions Recorded Confirmed Type Aspirin EC [Ecotrin] 325 mg PO DAILY 06/20/16 04/22/25 History Atorvastatin [Lipitor] 20 mg PO HS 06/20/16 04/22/25 History Sertraline [Zoloft] 50 mg PO DAILY 06/20/16 04/22/25 History Tamsulosin HCl [Flomax] 0.4 mg PO HS 06/20/16 04/22/25 History atenoloL 25 mg PO BID 06/20/16 04/22/25 History Pantoprazole [Protonix] 40 mg PO DAILY #30 tablet. 08/08/16 04/22/25 Rx metFORMIN HCL ER [Glucophage XR] 500 mg PO BID 10/24/21 04/22/25 History Dapagliflozin Propanediol [Farxiga] 10 mg PO DAILY 01/28/22 04/22/25 History Colchicine 0.6 mg PO DAILY 07/12/22 04/22/25 History icosapent ethyL [Icosapent Ethyl] 2 gm PO BID 07/12/22 04/22/25 History Dulaglutide [Trulicity] 3 mg SQ TH 04/22/25 04/22/25 History Ergocalciferol (Vitamin D2) 1,250 mcg PO Q7D 04/22/25 04/22/25 History [Drisdol (GEQ) 1,250 MCG (50,000 IU)] Folic Acid 1 mg PO DAILY 04/22/25 04/22/25 History Insulin Glargine,Hum.rec.anlog 30 units SQ HS 04/22/25 04/22/25 History [Lantus Solostar Pen] Levothyroxine Sodium [Synthroid] 137 mcg PO DAILY 04/22/25 04/22/25 History tiZANidine [Zanaflex] 2 mg PO TID PRN 04/22/25 04/22/25 History Allergies Allergy/AdvReac Type Severity Reaction Status Date / Time No Known Allergies Allergy Verified 04/22/25 10:53 Physical Examination - Vital Signs Vital Signs: Vital Signs Temp Pulse Resp BP Pulse Ox 04/22/25 11:26 99 F 87 20 125/65 91 L 04/22/25 08:59 104 H 17 128/70 93 L 04/22/25 06:46 105 H 04/22/25 06:39 101 H 04/22/25 05:46 100.8 F H 109 H 18 158/77 94 L Intake and Output 04/21/25 04/22/25 04/22/25 22:59 06:59 14:59 Other: Weight 91.943 kg Patient is an elderly male, in no acute distress. Patient is alert awake fairly well-oriented. Speech and language functions are normal. Patient can name and repeat very well. No aphasia or dysarthria. Attention, concentration and fund of knowledge is probably adequate. Detailed cognitive function testing deferred. On cranial nerve examination, pupils are equal, round and reacting to light, visual odell are full on confrontation, with no neglect on double simultaneous stimulation. Extraocular muscles are intact with no nystagmus. Face is symmetric, tongue protrudes to the midline. Palatal elevation and sensation n ormal, hearing and shoulder shrug normal, facial sensation normal. On muscle strength testing, there is no pronator drift and the strength is normal in arms and legs distally and proximally, except left hip flexion which is 5-. Patient's ankle dorsiflexion, toe extension and upper extremities are normal. Patient's left arm hurts when he supinates. He states going on for last 8 to 10 weeks. His legs also hurt since the same time. Deep tendon reflexes are symmetric 2+ at the biceps and brachioradialis, 3+ at the knees, ankles are trace and plantars are flat. Sensory to touch is equal with no neglect on double simultaneous stimulation. Cerebellar function showed no ataxia for [id number] testing. No dysdiadochokinesia. No ataxia for [id number] testing on either side. Tone an d bulk of muscles normal. Gait deferred.. On general examination, there is no carotid bruit or murmur, S1-S2 audible. Chest is clear on consultation. Abdomen is soft nontender. No organomegaly, b owel sounds present. Peripheral pulses are present. No peripheral edema. Results - Laboratory Findings CBC and BMP: 04/22/25 05:45 04/22/25 05:45 Abnormal Lab Findings: Abnormal Labs 04/22/25 04/22/25 04/22/25 05:45 05:45 05:45 WBC 14.43 H RBC 5.82 H Plt Count 105 L Immature Gran # 0.13 H Neutrophils # 13.17 H Lymphocytes # 0.38 L Eosinophils # 0.02 L PT 13.2 H INR 1.2 H Sodium Carbon Dioxide BUN Glucose POC Glucose (mg/dL) 195 H Magnesium Total Bilirubin AST ALT Alkaline Phosphatase Ur Specific [place] Urine Protein Urine Glucose (UA) Urine Ketones Urine Blood Urine Mucus U Benzodiazepines Scrn 04/22/25 04/22/25 05:45 11:14 WBC RBC Plt Count Immature Gran # Neutrophils # Lymphocytes # Eosinophils # PT INR Sodium 136 L Carbon Dioxide 20 L BUN 26 H Glucose 204 H POC Glucose (mg/dL) Magnesium 1.4 L Total Bilirubin 2.0 H AST 474 H ALT 367 H Alkaline Phosphatase 187 H Ur Specific [place] 1.050 H Urine Protein Trace H Urine Glucose (UA) 4+ H Urine Ketones Trace H Urine Blood Moderate H Urine Mucus Rare H U Benzodiazepines Scrn Detected H Assessment and Plan Assessment: * Multiple sclerosis by history. Patient presented with fairly acute generalized weakness. Examination is nonfocal. * Hyperthyroidism, likely iatrogenic * Elevated hepatic enzymes with hepatomegaly * Tobacco use * Hypomagnesemia * Leukocytosis, rule out pneumonia Plan: * Patient's acute onset of generalized weakness is likely metabolic in nature. Patient has been started on azithromycin and Zosyn. * Patient's examination is nonfocal. * Continue aspirin 325 mg daily. * Recommend complete tobacco cessation. * For abnormal thyroid functions, will defer to IM. * CTA of head and neck revealed mild 33% stenosis of the proximal right ICA caused by atherosclerotic calcifications. Atherosclerotic calcification at the proximal left ICA without flow-limiting stenosis. Mild narrowing of the transverse segment of the right ICA extending to the glenoid segment caused by atherosclerotic calcification. Mild narrowing of the transverse segment of the left ICA extending to the clinoid segment because of atherosclerotic calcification. Otherwise no evidence of flow-limiting stenosis within the head or neck. No aneurysm. * Check MRI of the brain. * Previous B12 606, folate borderline 8.0. We will start folate replacement. * Thyroid functions are off, with evidence of hyperthyroidism. We will defer to internal medicine. * Neurology will follow. Thank you for the consult.
[2025-04-22 19:13] LABS: Glucose,Whole Blood 355 mg/dL (70-110)
[2025-04-22] MEDS: INSULIN LISPRO (HumaLOG) 100 UNIT/ML 10 mL VL SQ SCH (19:37)
[2025-04-22] MEDS: NON FORMULARY DRUG (Icosapent Ethyl [Icosapent Ethyl] 1 GM Capsule) PO SCH (20:45)
[2025-04-22] MEDS: atenoloL 25 MG TAB PO SCH (20:49)
[2025-04-22] MEDS: TAMSULOSIN 0.4 MG CAP.ER.24H PO SCH (20:50)
[2025-04-22] MEDS: ATORVASTATIN 20 MG TAB PO SCH (20:50)
[2025-04-22] MEDS: INSULIN GLARGINE (LANTUS) 100 UNIT/ML SYR SQ SCH (20:51)
[2025-04-22 20:53] LABS: Glucose,Whole Blood 406 mg/dL (70-110)
[2025-04-22 22:27] LABS: Bilirubin, Delta 0.6 mg/dL (0.0-0.2); Bilirubin,Unconjugated 0.5 mg/dL (0.0-1.1); Total Bilirubin 1.1 mg/dL (0.2-1.3)
[2025-04-23 06:22] LABS: Glucose,Whole Blood 228 mg/dL (70-110)
[2025-04-23 07:00] LABS: ALT 271 U/L (4-49); AST 195 U/L (17-59); African American GFR (CKD) 65 (>60 ml/min/1.73 sqM); Albumin 3.3 g/dL (3.5-5.0); Alkaline Phosphatase 127 U/L (38-126); Anion Gap 9 mmol/L; Bilirubin, Delta 0.5 mg/dL (0.0-0.2); Bilirubin,Unconjugated 0.6 mg/dL (0.0-1.1); Blood Urea Nitrogen 29 mg/dL (9-20); Calcium 9.2 mg/dL (8.4-10.2); Carbon Dioxide 21 mmol/L (22-30); Chloride 110 mmol/L (98-107); Glucose 243 mg/dL (74-99); Non-African American GFR(CKD) 56 (>60 ml/min/1.73 sqM); Sodium 140 mmol/L (137-145); Total Bilirubin 1.1 mg/dL (0.2-1.3); Total Protein 5.8 g/dL (6.3-8.2)
[2025-04-23 07:02] LABS: Basophils # (A) 0.02 10*3/uL (0.00-0.10); Basophils % (A) 0.1 %; Eosinophils # (A) 0.03 10*3/uL (0.04-0.35); Eosinophils % (A) 0.2 %; HCT 45.6 % (39.6-50.0); HGB 14.7 g/dL (13.0-17.0); Lymphocytes # (A) 0.85 10*3/uL (0.90-5.00); Lymphocytes % (A) 6.2 %; MCH 27.9 pg (27.0-32.0); MCHC 32.2 g/dL (32.0-37.0); MCV 86.5 fL (80.0-97.0); Mean Platelet Volume 11.3 fL (9.5-12.2); Monocytes # (A) 0.74 10*3/uL (0.20-1.00); Monocytes % (A) 5.4 %; Neutrophils # (A) 11.98 10*3/uL (1.80-7.70); Neutrophils % (A) 87.5 %; RBC 5.27 10*6/uL (4.40-5.60); RDW 15.4 % (11.5-14.5)
[2025-04-23] MEDS: PANTOPRAZOLE 40 MG TABLET PO SCH (07:56)
[2025-04-23] MEDS: SERTRALINE 50 MG TAB PO SCH (07:57)
[2025-04-23] MEDS: FOLIC ACID 1 MG TAB PO SCH (07:57)
[2025-04-23] MEDS: LEVOTHYROXINE 137 MCG TAB PO SCH (07:57)
[2025-04-23] MEDS: ASPIRIN 325 MG TAB PO SCH (07:57)
[2025-04-23] MEDS: COLCHICINE 0.6 MG EACH PO SCH (07:58)
[2025-04-23 08:23] LABS: RBC Morphology Normal
[2025-04-23 08:24] LABS: Platelet Count 91 10*3/uL (140-440)
[2025-04-23] MEDS: IPRATROPIUM-ALBUTEROL 3 ML NEB INHALATION SCH (08:52)
--- NOTE | 2025-04-23 09:23 | XR ---
EXAMINATION TYPE: XR chest 1V portable DATE OF EXAM: 04/23/2025 9:04 AM COMPARISON: Chest radiographs from 04/22/2025. CLINICAL INDICATION: Male, 79 years old with history of pneumonia; [facility] TECHNIQUE: XR chest 1V portable Frontal view of the chest. FINDINGS: Lungs/Pleura: Left midlung airspace opacities. There is no evidence of pleural effusion, focal consol idation, or pneumothorax. Pulmonary vascularity: Unremarkable. Heart/mediastinum: Cardiomediastinal silhouette is unremarkable. Musculoskeletal: No acute osseous pathology. Other findings: None IMPRESSION: Left midlung airspace opacities correlate for developing pneumonia. [facility], , 04/23/2025 9:20 AM
[2025-04-23] MEDS: AZITHROMYCIN 500 MG in SODIUM CHLORIDE 0.9% 250 ML IVPB SCH (09:46)
--- NOTE | 2025-04-23 11:59 | P.GSCN ---
History of Present Illness History of present illness: Patient is an 79-year-old male with history of MS presenting to the hospital secondary to weakness surgery was consulted for ultrasound findings demonstrating gallstones and fatty liver and elevated LFTs/bilirubin patient currently denies abdominal pain nausea vomiting fevers chills shortness of breath or chest pain Review of Systems - Constitutional Reports as per HPI Past Medical History Past Medical History: Coronary Artery Disease (CAD), Chest Pain / Angina, Dementia, Diabetes Mellitus, Deep Vein Thrombosis (DVT), GERD/Reflux, GI Bleed, Hyperlipidemia, Hypertension, Musculoskeletal Disorder, Neurologic Disorder, Prostate Disorder, Thyroid Disorder, Vascular Disorder Additional Past Medical History / Comment(s): Insulin-dependent diabetes mellitus, peripheral vascular disease, chronic sinus disease, gout, previous bouts of GI bleed, questionable history of multiple sclerosis although the patient has not demonstrated any neurologic deficits, obesity, hypothyroidism, hyperlipidemia Other HX: IDDM, pt told many yrs ago he had multiple sclerosis but has had no symptoms in years, PVD, sinus problems, gout, hematuria related to coumadin, GI bleed with transfusion r/t coumadin, cramps to bilateral lower legs frequently, DVT to L lower leg in 2005, BPH, hypothyroid, L arm fx in past. History of Any Multi-Drug Resistant Organisms: None Reported Past Surgical History: Back Surgery, Heart Catheterization With Stent, Orthopedic Surgery Additional Past Surgical History / Comment(s): 2001 cardiac cath with stent, EGD/colonoscopy with benign polyps, hemorrhoid surgery x 2, low back surgery, implants bilateral great toes, L knee arthroscopy, R finger amp 1st joint. Past Anesthesia/Blood Transfusion Reactions: No Reported Reaction Additional Past Anesthesia/Blood Transfusion Reaction / Comm: Pt has received blood in past without reaction. Date of Last Stent Placement:: 2001 Past Psychological History: Anxiety, Depression Smoking Status: Current every day smoker Past Alcohol Use History: Occasional Past Drug Use History: None Reported - Past Family History Father Family Medical History: No Reported History Additional Family Medical History / Comment(s): Thierry due to a fall when he was 56 yrs old. Mother Family Medical History: Dementia Additional Family Medical History / Comment(s): Mother lived to be 99yrs old. Medications and Allergies Home Medications Medication Instructions Recorded Confirmed Type Aspirin EC [Ecotrin] 325 mg PO DAILY 06/20/16 04/22/25 History Atorvastatin [Lipitor] 20 mg PO HS 06/20/16 04/22/25 History Sertraline [Zoloft] 50 mg PO DAILY 06/20/16 04/22/25 History Tamsulosin HCl [Flomax] 0.4 mg PO HS 06/20/16 04/22/25 History atenoloL 25 mg PO BID 06/20/16 04/22/25 History Pantoprazole [Protonix] 40 mg PO DAILY #30 tablet.dr 08/08/16 04/22/25 Rx metFORMIN HCL ER [Glucophage XR] 500 mg PO BID 10/24/21 04/22/25 History Dapagliflozin Propanediol [Farxiga] 10 mg PO DAILY 01/28/22 04/22/25 History Colchicine 0.6 mg PO DAILY 07/12/22 04/22/25 History icosapent ethyL [Icosapent Ethyl] 2 gm PO BID 07/12/22 04/22/25 History Dulaglutide [Trulicity] 3 mg SQ TH 04/22/25 04/22/25 History Ergocalciferol (Vitamin D2) 1,250 mcg PO Q7D 04/22/25 04/22/25 History [Drisdol (GEQ) 1,250 MCG (50,000 IU)] Folic Acid 1 mg PO DAILY 04/22/25 04/22/25 History Insulin Glargine,Hum.rec.anlog 30 units SQ HS 04/22/25 04/22/25 History [Lantus Solostar Pen] Levothyroxine Sodium [Synthroid] 137 mcg PO DAILY 04/22/25 04/22/25 History tiZANidine [Zanaflex] 2 mg PO TID PRN 04/22/25 04/22/25 History Allergies Allergy/AdvReac Type Severity Reaction Status Date / Time No Known Allergies Allergy Verified 04/22/25 10:53 Surgical - Exam Osteopathic Statement: *. No significant issues noted on an osteopathic structural exam other than those noted in the History and Physical/Consult. Vital Signs Temp Pulse Resp BP Pulse Ox 100.8 F H 109 H 18 158/77 94 L 04/22/25 05:46 04/22/25 05:46 04/22/25 05:46 04/22/25 05:46 04/22/25 05:46 - General General No acute distress alert and oriented x 3 Cardiovascular regular rate rhythm Pulmonary nonlabored breathing Abdomen soft, nontender, distended/protuberant abdomen no guarding or rebound tenderness Results - Labs 04/23/25 06:26 04/23/25 06:26 Abnormal Lab Results - Last 24 Hours (Table) 04/22/25 04/22/25 04/22/25 Range/Units 05:45 11:14 15:36 WBC (4.50-10.00) 10*3/uL Plt Count (140-440) 10*3/uL Immature Gran # (0.00-0.04) 10*3/uL Neutrophils # (1.80-7.70) 10*3/uL Lymphocytes # (0.90-5.00) 10*3/uL Eosinophils # (0.04-0.35) 10*3/uL Chloride (98-107) mmol/L Carbon Dioxide (22-30) mmol/L BUN (9-20) mg/dL Glucose (74-99) mg/dL POC Glucose (mg/dL) (70-110) mg/dL Hemoglobin A1c 8.2 H (<=6.0) % Delta Bilirubin (0.0-0.2) mg/dL AST (17-59) U/L ALT (4-49) U/L Alkaline Phosphatase (38-126) U/L Total Protein (6.3-8.2) g/dL Albumin (3.5-5.0) g/dL Procalcitonin 1.43 H (0.02-0.50) ng/mL Ur Specific [place] 1.050 H (1.001-1.035) Urine Protein Trace H (Negative) Urine Glucose (UA) 4+ H (Negative) Urine Ketones Trace H (Negative) Urine Blood Moderate H (Negative) Urine Mucus Rare H (None) /hpf 04/22/25 04/22/25 04/22/25 Range/Units 19:12 20:51 21:29 WBC (4.50-10.00) 10*3/uL Plt Count (140-440) 10*3/uL Immature Gran # (0.00-0.04) 10*3/uL Neutrophils # (1.80-7.70) 10*3/uL Lymphocytes # (0.90-5.00) 10*3/uL Eosinophils # (0.04-0.35) 10*3/uL Chloride (98-107) mmol/L Carbon Dioxide (22-30) mmol/L BUN (9-20) mg/dL Glucose (74-99) mg/dL POC Glucose (mg/dL) 355 H 406 H (70-110) mg/dL Hemoglobin A1c (<=6.0) % Delta Bilirubin 0.6 H (0.0-0.2) mg/dL AST (17-59) U/L ALT (4-49) U/L Alkaline Phosphatase (38-126) U/L Total Protein (6.3-8.2) g/dL Albumin (3.5-5.0) g/dL Procalcitonin (0.02-0.50) ng/mL Ur Specific [place] (1.001-1.035) Urine Protein (Negative) Urine Glucose (UA) (Negative) Urine Ketones (Negative) Urine Blood (Negative) Urine Mucus (None) /hpf 04/23/25 04/23/25 04/23/25 Range/Units 06:20 06:26 06:26 WBC 13.70 H (4.50-10.00) 10*3/uL Plt Count 91 L (140-440) 10*3/uL Immature Gran # 0.08 H (0.00-0.04) 10*3/uL Neutrophils # 11.98 H (1.80-7.70) 10*3/uL Lymphocytes # 0.85 L (0.90-5.00) 10*3/uL Eosinophils # 0.03 L (0.04-0.35) 10*3/uL Chloride 110 H (98-107) mmol/L Carbon Dioxide 21 L (22-30) mmol/L BUN 29 H (9-20) mg/dL Glucose 243 H (74-99) mg/dL POC Glucose (mg/dL) 228 H (70-110) mg/dL Hemoglobin A1c (<=6.0) % Delta Bilirubin 0.5 H (0.0-0.2) mg/dL AST 195 H (17-59) U/L ALT 271 H (4-49) U/L Alkaline Phosphatase 127 H (38-126) U/L Total Protein 5.8 L (6.3-8.2) g/dL Albumin 3.3 L (3.5-5.0) g/dL Procalcitonin (0.02-0.50) ng/mL Ur Specific [place] (1.001-1.035) Urine Protein (Negative) Urine Glucose (UA) (Negative) Urine Ketones (Negative) Urine Blood (Negative) Urine Mucus (None) /hpf Diabetes panel 04/22/25 04/23/25 Range/Units 05:45 06:26 Sodium 140 (137-145) mmol/L Potassium 4.0 (3.5-5.1) mmol/L Chloride 110 H (98-107) mmol/L Carbon Dioxide 21 L (22-30) mmol/L BUN 29 H (9-20) mg/dL Creatinine 1.22 (0.66-1.25) mg/dL Glucose 243 H (74-99) mg/dL Hemoglobin A1c 8.2 H (<=6.0) % Calcium 9.2 (8.4-10.2) mg/dL AST 195 H (17-59) U/L ALT 271 H (4-49) U/L Alkaline Phosphatase 127 H (38-126) U/L Total Protein 5.8 L (6.3-8.2) g/dL Albumin 3.3 L (3.5-5.0) g/dL Calcium panel 04/23/25 Range/Units 06:26 Calcium 9.2 (8.4-10.2) mg/dL Albumin 3.3 L (3.5-5.0) g/dL Pituitary panel 04/23/25 Range/Units 06:26 Sodium 140 (137-145) mmol/L Potassium 4.0 (3.5-5.1) mmol/L Chloride 110 H (98-107) mmol/L Carbon Dioxide 21 L (22-30) mmol/L BUN 29 H (9-20) mg/dL Creatinine 1.22 (0.66-1.25) mg/dL Glucose 243 H (74-99) mg/dL Calcium 9.2 (8.4-10.2) mg/dL Adrenal panel 04/22/25 04/23/25 Range/Units 21:29 06:26 Sodium 140 (137-145) mmol/L Potassium 4.0 (3.5-5.1) mmol/L Chloride 110 H (98-107) mmol/L Carbon Dioxide 21 L (22-30) mmol/L BUN 29 H (9-20) mg/dL Creatinine 1.22 (0.66-1.25) mg/dL Glucose 243 H (74-99) mg/dL Calcium 9.2 (8.4-10.2) mg/dL Total Bilirubin 1.1 1.1 (0.2-1.3) mg/dL AST 195 H (17-59) U/L ALT 271 H (4-49) U/L Alkaline Phosphatase 127 H (38-126) U/L Total Protein 5.8 L (6.3-8.2) g/dL Albumin 3.3 L (3.5-5.0) g/dL Assessment and Plan Assessment: 79-year-old male with asymptomatic cholelithiasis Fatty liver Bilirubin normal Trend LFTs No surgical intervention at this time Time with Patient: Greater than 30
[2025-04-23 13:30] LABS: Glucose,Whole Blood 127 mg/dL (70-110)
[2025-04-23 13:49] LABS: T4, Free (Free Thyroxine) 1.57 ng/dL (0.78-2.19)
--- NOTE | 2025-04-23 14:06 | P.PN ---
Subjective Progress Note Date: 04/23/25 No new complaints today. Pending MRi results. Gen: In NAD, non-toxic HEENT: normocephalic, atraumatic, hearing acuity is intant, mucous membranes moist CVS: perfusing all extremities well, bilateral lower extremity pitting edema, regular rate and rhythm, no appreciable murmurs Respiratory: symmetric chest expansion, no accessory muscle use, GI: soft, NTTP, ND, : no suprapubic tenderness, no CVA tenderness MSK/Derm: no rashes, cyanosis Neuro: CN II-XII intact, no motor weakness, Hospital Course: 79-year-old male with medical history of hypertension, hyperlipidemia, MS, diabetes, BPH presented for evaluation of generalized weakness. In the emergency room, patient was febrile to 100.8, 125/65, heart rate 105, 91% on room air. CBC was remarkable for leukocytosis to 14.4 with left shift. Basic metabolic panel showed sodium of 136, CO2 of 20, BUN of 26, creatinine of 1.15. Magnesium was low at 1.4. Liver function test show total bilirubin of 2.0, AST of 474, ALT of 367, alkaline phosphatase of 187. INR is 1.2. Urinalysis shows 4+ glucose, trace protein, trace ketones, moderate blood urine talk screen is positive for benzodiazepines. Influenza A, B, RSV, COVID were negative. EKG demonstrated sinus tachycardia with right axis deviation, occasional PVCs. Chest x-ray shows low lung volumes, appearance of retrocardiac opacity, overall hazy lung appearance. CT angiography shows mild stenosis of the proximal right RCA, calcifications of the left ICA without flow-limiting stenosis, mild narrowing of the transverse segment of the right ICA, left ICA. Brain CT shows no acute intracranial abnormality, but was limited given lack of axial imaging. Gallbladder ultrasound shows borderline hepatomegaly at 17.6 cm with moderate to severe hepatic steatosis, small gallstones, mildly dilated bile duct at 7.8 mm. Assessment/plan: Sepsis Left lower lobe community-acquired pneumonia - Admit to inpatient, telemetry - Continue Zosyn, azithromycin - PC is elevated at 1.24 - Follow-up blood cultures - DuoNebs scheduled and as needed - Discontinue steroids - IV fluids: LR at 75 cc/h Hyperbilirubinemia Elevated liver enzymes Biliary dilation - Continue to monitor - General Surgery consultation appreciated - N.p.o. at midnight except for medications Generalized weakness History of MS, progressive - Neurology consulted by emergency room, recommend TSH/FT4, ordered - Not on any home medications - PT/OT consult Hypertension Hyperlipidemia Diabetes type 2 BPH -Home medications reviewed and reconciled - Added medium dose sliding scale Patient is full code DVT prophylaxis with heparin 3 times daily Objective - Vital Signs Vital signs: Vital Signs Temp 98.2 F 04/23/25 08:00 Pulse 71 04/23/25 10:26 Resp 18 04/23/25 10:26 BP 120/58 04/23/25 10:26 Pulse Ox 96 04/23/25 10:26 FiO2 - Labs CBC & Chem 7: 04/23/25 06:26 04/23/25 06:26 Labs: Abnormal Lab Results - Last 24 Hours (Table) 04/22/25 04/22/25 04/22/25 Range/Units 05:45 15:36 19:12 WBC (4.50-10.00) 10*3/uL Plt Count (140-440) 10*3/uL Immature Gran # (0.00-0.04) 10*3/uL Neutrophils # (1.80-7.70) 10*3/uL Lymphocytes # (0.90-5.00) 10*3/uL Eosinophils # (0.04-0.35) 10*3/uL Chloride (98-107) mmol/L Carbon Dioxide (22-30) mmol/L BUN (9-20) mg/dL Glucose (74-99) mg/dL POC Glucose (mg/dL) 355 H (70-110) mg/dL Hemoglobin A1c 8.2 H (<=6.0) % Delta Bilirubin (0.0-0.2) mg/dL AST (17-59) U/L ALT (4-49) U/L Alkaline Phosphatase (38-126) U/L Total Protein (6.3-8.2) g/dL Albumin (3.5-5.0) g/dL Procalcitonin 1.43 H (0.02-0.50) ng/mL TSH (0.465-4.680) mIU/L 04/22/25 04/22/25 04/23/25 Range/Units 20:51 21:29 06:20 WBC (4.50-10.00) 10*3/uL Plt Count (140-440) 10*3/uL Immature Gran # (0.00-0.04) 10*3/uL Neutrophils # (1.80-7.70) 10*3/uL Lymphocytes # (0.90-5.00) 10*3/uL Eosinophils # (0.04-0.35) 10*3/uL Chloride (98-107) mmol/L Carbon Dioxide (22-30) mmol/L BUN (9-20) mg/dL Glucose (74-99) mg/dL POC Glucose (mg/dL) 406 H 228 H (70-110) mg/dL Hemoglobin A1c (<=6.0) % Delta Bilirubin 0.6 H (0.0-0.2) mg/dL AST (17-59) U/L ALT (4-49) U/L Alkaline Phosphatase (38-126) U/L Total Protein (6.3-8.2) g/dL Albumin (3.5-5.0) g/dL Procalcitonin (0.02-0.50) ng/mL TSH (0.465-4.680) mIU/L 04/23/25 04/23/25 04/23/25 Range/Units 06:26 06:26 06:26 WBC 13.70 H (4.50-10.00) 10*3/uL Plt Count 91 L (140-440) 10*3/uL Immature Gran # 0.08 H (0.00-0.04) 10*3/uL Neutrophils # 11.98 H (1.80-7.70) 10*3/uL Lymphocytes # 0.85 L (0.90-5.00) 10*3/uL Eosinophils # 0.03 L (0.04-0.35) 10*3/uL Chloride 110 H (98-107) mmol/L Carbon Dioxide 21 L (22-30) mmol/L BUN 29 H (9-20) mg/dL Glucose 243 H (74-99) mg/dL POC Glucose (mg/dL) (70-110) mg/dL Hemoglobin A1c (<=6.0) % Delta Bilirubin 0.5 H (0.0-0.2) mg/dL AST 195 H (17-59) U/L ALT 271 H (4-49) U/L Alkaline Phosphatase 127 H (38-126) U/L Total Protein 5.8 L (6.3-8.2) g/dL Albumin 3.3 L (3.5-5.0) g/dL Procalcitonin (0.02-0.50) ng/mL TSH <0.015 L (0.465-4.680) mIU/L 04/23/25 Range/Units 13:29 WBC (4.50-10.00) 10*3/uL Plt Count (140-440) 10*3/uL Immature Gran # (0.00-0.04) 10*3/uL Neutrophils # (1.80-7.70) 10*3/uL Lymphocytes # (0.90-5.00) 10*3/uL Eosinophils # (0.04-0.35) 10*3/uL Chloride (98-107) mmol/L Carbon Dioxide (22-30) mmol/L BUN (9-20) mg/dL Glucose (74-99) mg/dL POC Glucose (mg/dL) 127 H (70-110) mg/dL Hemoglobin A1c (<=6.0) % Delta Bilirubin (0.0-0.2) mg/dL AST (17-59) U/L ALT (4-49) U/L Alkaline Phosphatase (38-126) U/L Total Protein (6.3-8.2) g/dL Albumin (3.5-5.0) g/dL Procalcitonin (0.02-0.50) ng/mL TSH (0.465-4.680) mIU/L
--- NOTE | 2025-04-23 16:49 | P.PN ---
Subjective Progress Note Date: 04/23/25 Patient was seen for follow-up. Patient is reclining comfortably in the recliner. Offers no new complaints. States he is feeling much better. No new focal symptoms. Objective - Vital Signs Vital signs: Vital Signs Temp 98.2 F 04/23/25 08:00 Pulse 81 04/23/25 15:51 Resp 18 04/23/25 15:51 BP 137/76 04/23/25 15:51 Pulse Ox 97 04/23/25 15:51 FiO2 - Exam Patient's mental status, speech and language functions appears normal. Muscle strength is normal in the arms and legs. - Labs CBC & Chem 7: 04/23/25 06:26 04/23/25 06:26 Labs: Abnormal Lab Results - Last 24 Hours (Table) 04/22/25 04/22/25 04/22/25 Range/Units 05:45 15:36 19:12 WBC (4.50-10.00) 10*3/uL Plt Count (140-440) 10*3/uL Immature Gran # (0.00-0.04) 10*3/uL Neutrophils # (1.80-7.70) 10*3/uL Lymphocytes # (0.90-5.00) 10*3/uL Eosinophils # (0.04-0.35) 10*3/uL Chloride (98-107) mmol/L Carbon Dioxide (22-30) mmol/L BUN (9-20) mg/dL Glucose (74-99) mg/dL POC Glucose (mg/dL) 355 H (70-110) mg/dL Hemoglobin A1c 8.2 H (<=6.0) % Delta Bilirubin (0.0-0.2) mg/dL AST (17-59) U/L ALT (4-49) U/L Alkaline Phosphatase (38-126) U/L Total Protein (6.3-8.2) g/dL Albumin (3.5-5.0) g/dL Procalcitonin 1.43 H (0.02-0.50) ng/mL TSH (0.465-4.680) mIU/L 04/22/25 04/22/25 04/23/25 Range/Units 20:51 21:29 06:20 WBC (4.50-10.00) 10*3/uL Plt Count (140-440) 10*3/uL Immature Gran # (0.00-0.04) 10*3/uL Neutrophils # (1.80-7.70) 10*3/uL Lymphocytes # (0.90-5.00) 10*3/uL Eosinophils # (0.04-0.35) 10*3/uL Chloride (98-107) mmol/L Carbon Dioxide (22-30) mmol/L BUN (9-20) mg/dL Glucose (74-99) mg/dL POC Glucose (mg/dL) 406 H 228 H (70-110) mg/dL Hemoglobin A1c (<=6.0) % Delta Bilirubin 0.6 H (0.0-0.2) mg/dL AST (17-59) U/L ALT (4-49) U/L Alkaline Phosphatase (38-126) U/L Total Protein (6.3-8.2) g/dL Albumin (3.5-5.0) g/dL Procalcitonin (0.02-0.50) ng/mL TSH (0.465-4.680) mIU/L 04/23/25 04/23/25 04/23/25 Range/Units 06:26 06:26 06:26 WBC 13.70 H (4.50-10.00) 10*3/uL Plt Count 91 L (140-440) 10*3/uL Immature Gran # 0.08 H (0.00-0.04) 10*3/uL Neutrophils # 11.98 H (1.80-7.70) 10*3/uL Lymphocytes # 0.85 L (0.90-5.00) 10*3/uL Eosinophils # 0.03 L (0.04-0.35) 10*3/uL Chloride 110 H (98-107) mmol/L Carbon Dioxide 21 L (22-30) mmol/L BUN 29 H (9-20) mg/dL Glucose 243 H (74-99) mg/dL POC Glucose (mg/dL) (70-110) mg/dL Hemoglobin A1c (<=6.0) % Delta Bilirubin 0.5 H (0.0-0.2) mg/dL AST 195 H (17-59) U/L ALT 271 H (4-49) U/L Alkaline Phosphatase 127 H (38-126) U/L Total Protein 5.8 L (6.3-8.2) g/dL Albumin 3.3 L (3.5-5.0) g/dL Procalcitonin (0.02-0.50) ng/mL TSH <0.015 L (0.465-4.680) mIU/L 04/23/25 Range/Units 13:29 WBC (4.50-10.00) 10*3/uL Plt Count (140-440) 10*3/uL Immature Gran # (0.00-0.04) 10*3/uL Neutrophils # (1.80-7.70) 10*3/uL Lymphocytes # (0.90-5.00) 10*3/uL Eosinophils # (0.04-0.35) 10*3/uL Chloride (98-107) mmol/L Carbon Dioxide (22-30) mmol/L BUN (9-20) mg/dL Glucose (74-99) mg/dL POC Glucose (mg/dL) 127 H (70-110) mg/dL Hemoglobin A1c (<=6.0) % Delta Bilirubin (0.0-0.2) mg/dL AST (17-59) U/L ALT (4-49) U/L Alkaline Phosphatase (38-126) U/L Total Protein (6.3-8.2) g/dL Albumin (3.5-5.0) g/dL Procalcitonin (0.02-0.50) ng/mL TSH (0.465-4.680) mIU/L Assessment and Plan Assessment: * Multiple sclerosis by history. Patient presented with fairly acute generalized weakness. Examination is nonfocal. * Hyperthyroidism, likely iatrogenic * Elevated hepatic enzymes with hepatomegaly * Tobacco use * Hypomagnesemia * Leukocytosis, rule out pneumonia Plan: * Patient's acute onset of generalized weakness is likely metabolic in nature. Patient has been started on azithromycin and Zosyn. * Patient's examination is nonfocal. * Continue aspirin 325 mg daily. * Recommend complete tobacco cessation. * For abnormal thyroid functions, will defer to IM. * CTA of head and neck revealed mild 33% stenosis of the proximal right ICA caused by atherosclerotic calcifications. Atherosclerotic calcification at the proximal left ICA without flow-limiting stenosis. Mild narrowing of the transverse segment of the right ICA extending to the glenoid segment caused by atherosclerotic calcification. Mild narrowing of the transverse segment of the left ICA extending to the clinoid segment because of atherosclerotic calcification. Otherwise no evidence of flow-limiting stenosis within the head or neck. No aneurysm. * Patient could not tolerate MRI because his right leg starts jerking. * Previous B12 606, folate borderline 8.0. We will start folate replacement. * Thyroid functions are off, with evidence of hyperthyroidism. We will defer to internal medicine.
[2025-04-23 19:51] LABS: Glucose,Whole Blood 268 mg/dL (70-110)
[2025-04-24] MEDS: tiZANidine 4 MG TAB PO PRN (00:14)
[2025-04-24] MEDS: IPRATROPIUM-ALBUTEROL 3 ML NEB INHALATION PRN (00:21)
[2025-04-24] MEDS: ONDANSETRON 4 MG/2 ML VIAL IVP PRN (00:30)
[2025-04-24 05:55] LABS: Glucose,Whole Blood 108 mg/dL (70-110)
[2025-04-24] MEDS: ZINC OXIDE 20% OINT 28.4 GM TUBE TOPICAL PRN (11:00)
[2025-04-24 12:28] LABS: Glucose,Whole Blood 92 mg/dL (70-110)
--- NOTE | 2025-04-24 13:42 | P.PN ---
Subjective Progress Note Date: 04/24/25 No new complaints today. Pt significantly improved in terms of mentation. Pending PT consultation. Gen: In NAD, non-toxic HEENT: normocephalic, atraumatic, hearing acuity is intant, mucous membranes moist CVS: perfusing all extremities well, bilateral lower extremity pitting edema, regular rate and rhythm, no appreciable murmurs Respiratory: symmetric chest expansion, no accessory muscle use, GI: soft, NTTP, ND, : no suprapubic tenderness, no CVA tenderness MSK/Derm: no rashes, cyanosis Neuro: CN II-XII intact, no motor weakness, Hospital Course: 79-year-old male with medical history of hypertension, hyperlipidemia, MS, diabetes, BPH presented for evaluation of generalized weakness. In the emergency room, patient was febrile to 100.8, 125/65, heart rate 105, 91% on room air. CBC was remarkable for leukocytosis to 14.4 with left shift. Basic metabolic panel showed sodium of 136, CO2 of 20, BUN of 26, creatinine of 1.15. Magnesium was low at 1.4. Liver function test show total bilirubin of 2.0, AST of 474, ALT of 367, alkaline phosphatase of 187. INR is 1.2. Urinalysis shows 4+ glucose, trace protein, trace ketones, moderate blood urine talk screen is positive for benzodiazepines. Influenza A, B, RSV, COVID were negative. EKG demonstrated sinus tachycardia with right axis deviation, occasional PVCs. Chest x-ray shows low lung volumes, appearance of retrocardiac opacity, overall hazy lung appearance. CT angiography shows mild stenosis of the proximal right RCA, calcifications of the left ICA without flow-limiting stenosis, mild narrowing of the transverse segment of the right ICA, left ICA. Brain CT shows no acute intracranial abnormality, but was limited given lack of axial imaging. Gallbladder ultrasound shows borderline hepatomegaly at 17.6 cm with moderate to severe hepatic steatosis, small gallstones, mildly dilated bile duct at 7.8 mm. Assessment/plan: Sepsis Left lower lobe community-acquired pneumonia - Admit to inpatient, telemetry - Continue Zosyn, azithromycin - PC is elevated at 1.24 - Follow-up blood cultures - DuoNebs scheduled and as needed - Discontinue steroids - IV fluids: LR at 75 cc/h Hyperbilirubinemia Elevated liver enzymes Biliary dilation - Continue to monitor - General Surgery consultation appreciated Generalized weakness History of MS, progressive - Neurology consulted by emergency room, recommend TSH/FT4, ordered - Not on any home medications - PT/OT consult Hypertension Hyperlipidemia Diabetes type 2 BPH -Home medications reviewed and reconciled - Added medium dose sliding scale Patient is full code DVT prophylaxis with heparin 3 times daily Objective - Vital Signs Vital signs: Vital Signs Temp 98.9 F 04/24/25 07:15 Pulse 72 04/24/25 12:52 Resp 17 04/24/25 13:37 BP 152/74 04/24/25 07:15 Pulse Ox 94 L 04/24/25 07:15 FiO2 Intake & Output 04/23/25 04/24/25 04/24/25 18:59 06:59 18:59 Intake Total 360 Output Total 1400 Balance -1400 360 Weight 91.943 kg 98.7 kg Intake: Oral 360 Output: Urine 1400 Other: Voiding Method Incontinent Incontinent External Catheter External Catheter # Voids 2 - Labs CBC & Chem 7: 04/23/25 06:26 04/23/25 06:26 Labs: Abnormal Lab Results - Last 24 Hours (Table) 04/23/25 Range/Units 19:49 POC Glucose (mg/dL) 268 H (70-110) mg/dL Microbiology - Last 24 Hours (Table) 04/22/25 08:39 Blood Culture - Preliminary Blood
[2025-04-24] MEDS: CLOPIDOGREL 75 MG TAB PO SCH (16:30)
[2025-04-24 17:30] LABS: Glucose,Whole Blood 156 mg/dL (70-110)
[2025-04-24 20:51] LABS: Glucose,Whole Blood 122 mg/dL (70-110)
--- NOTE | 2025-04-25 03:18 | P.PN ---
Subjective Progress Note Date: 04/24/25 Patient was seen for follow-up. Patient is reclining comfortably in the recliner. patient's son was present by the bedside. He mentions that last night at around 10 PM he developed weakness and was incoherent, talking nonsensical, gibberish disoriented confused. He did not recognize the nurses twice. He feels hot but did not have any fever. Patient's son noticed that he was left hemiparetic, could not lift his left leg at all and his left arm was weak. He was very foggy. He was dragging. Also was sweating. However this morning he is back to baseline. His left-sided deficits has resolved. Objective - Vital Signs Vital signs: Vital Signs Temp 98.4 F 04/24/25 12:00 Pulse 72 04/24/25 12:52 Resp 17 04/24/25 13:37 BP 126/74 04/24/25 12:00 Pulse Ox 93 L 04/24/25 12:00 FiO2 Intake & Output 04/23/25 04/24/25 04/24/25 18:59 06:59 18:59 Intake Total 478 Output Total 1400 250 Balance -1400 228 Weight 91.943 kg 98.7 kg Intake: Oral 478 Output: Urine 1400 250 Other: Voiding Method Incontinent Incontinent External Catheter External Catheter # Voids 2 - Exam Patient's mental status, speech and language functions appears normal. Muscle strength is normal in the arms and legs. - Labs CBC & Chem 7: 04/23/25 06:26 04/23/25 06:26 Labs: Abnormal Lab Results - Last 24 Hours (Table) 04/23/25 Range/Units 19:49 POC Glucose (mg/dL) 268 H (70-110) mg/dL Microbiology - Last 24 Hours (Table) 04/22/25 08:39 Blood Culture - Preliminary Blood Assessment and Plan Assessment: * Multiple sclerosis by history. Patient presented with fairly acute generalized weakness. Examination is nonfocal. * Patient had a possible TIA last night with left hemiparesis and mental confusion that resolved this morning. * Hyperthyroidism, likely iatrogenic * Elevated hepatic enzymes with hepatomegaly * Tobacco use * Hypomagnesemia * Leukocytosis, rule out pneumonia Plan: * Patient's acute onset of generalized weakness is likely metabolic in nature. Patient has been started on azithromycin and Zosyn. * Patient's examination is nonfocal. However patient had a possible TIA last night. * Continue aspirin 325 mg daily. Start Plavix 75 mg daily for possible recurrent TIA. * Check MRI of the brain. Patient may need Ativan 1-2 mg IV before MRI. * Recommend complete tobacco cessation. * For abnormal thyroid functions, will defer to IM. * CTA of head and neck revealed mild 33% stenosis of the proximal right ICA caused by atherosclerotic calcifications. Atherosclerotic calcification at the proximal left ICA without flow-limiting stenosis. Mild narrowing of the transverse segment of the right ICA extending to the glenoid segment caused by atherosclerotic calcification. Mild narrowing of the transverse segment of the left ICA extending to the clinoid segment because of atherosclerotic calcification. Otherwise no evidence of flow-limiting stenosis within the head or neck. No aneurysm. * Patient could not tolerate MRI because his right leg starts jerking. We will perform MRI with prior dosing of Ativan 1 to 2 mg IV. * Hemoglobin A1c 8.2. Recommend optimize control of diabetes to target A1c <7.0. * Fasting lipid panel with cholesterol 92, LDL 39, HDL 31, triglycerides 105. Continue Lipitor 20 mg daily. * Previous B12 606, folate borderline 8.0. We will start folate replacement. * Thyroid functions are off, with evidence of hyperthyroidism. We will defer to internal medicine. * Dr. Lam Chaudhari to resume neurology service in the morning.
[2025-04-25 05:47] LABS: Glucose,Whole Blood 69 mg/dL (70-110)
[2025-04-25 06:21] LABS: Glucose,Whole Blood 118 mg/dL (70-110)
[2025-04-25 07:54] LABS: Basophils # (A) 0.02 X 10*3/uL (0.00-0.10); Basophils % (A) 0.3 %; Eosinophils # (A) 0.15 X 10*3/uL (0.04-0.35); Eosinophils % (A) 2.6 %; HCT 46.2 % (39.6-50.0); HGB 14.7 g/dL (13.0-17.0); Lymphocytes # (A) 1.05 X 10*3/uL (0.90-5.00); Lymphocytes % (A) 17.9 %; MCH 27.2 pg (27.0-32.0); MCHC 31.8 g/dL (32.0-37.0); MCV 85.6 FL (80.0-97.0); Mean Platelet Volume 12.1 FL (9.5-12.2); Monocytes # (A) 0.53 X 10*3/uL (0.20-1.00); NRBC Per 100 WBC 0 X 10*3/uL (0.00-0.01); Neutrophils % (A) 69.7 %; Platelet Count 86 X 10*3/uL (140-440); WBC 5.88 X 10*3/uL (4.50-10.00)
[2025-04-25 08:04] LABS: Magnesium 1.7 mg/dL (1.5-2.4)
[2025-04-25 10:48] LABS: ALT 258 U/L (10-49); AST 140 U/L (14-35); Albumin 3.3 g/dL (3.8-4.9); Alkaline Phosphatase 142 U/L (41-126); BUN/Creat Ratio 14.54 Ratio (12.00-20.00); Bilirubin, Conjugated 0.62 mg/dL (0.20-0.40); Bilirubin,Unconjugated 0.48 mg/dL (0.20-1.00); Blood Urea Nitrogen 18.9 mg/dL (9.0-27.0); Calcium 8.7 mg/dL (8.7-10.3); Carbon Dioxide 22.6 mmol/L (21.6-31.8); Chloride 103 mmol/L (96-109); Globulin 2.2 g/dL (1.6-3.3); Glucose 94 mg/dL (70-110); Potassium 3.7 mmol/L (3.5-5.5); Sodium 136 mmol/L (135-145); Total Bilirubin 1.1 mg/dL (0.3-1.2); Total Protein 5.5 g/dL (6.2-8.2)
[2025-04-25 12:14] LABS: Glucose,Whole Blood 136 mg/dL (70-110)
--- NOTE | 2025-04-25 12:23 | P.PN ---
Subjective Progress Note Date: 04/25/25 Patient seen and examined at bedside. Denies abdominal pain Objective - Vital Signs Vital signs: Vital Signs Temp 99.4 F 04/25/25 07:20 Pulse 74 04/25/25 11:53 Resp 17 04/25/25 08:00 BP 165/84 04/25/25 07:20 Pulse Ox 94 L 04/25/25 07:20 FiO2 Intake & Output 04/24/25 04/25/25 04/25/25 18:59 06:59 18:59 Intake Total 478 0 Output Total 250 900 Balance 228 -900 0 Intake: Oral 478 0 Output: Urine 250 900 Other: Voiding Method Incontinent Incontinent External Catheter External Catheter - Constitutional General appearance: Present: cooperative - Gastrointestinal Gastrointestinal Comment(s): Soft, nontender - Labs CBC & Chem 7: 04/25/25 04:12 04/25/25 04:12 Labs: Abnormal Lab Results - Last 24 Hours (Table) 04/24/25 04/24/25 04/25/25 Range/Units 17:27 20:41 04:12 MCHC 31.8 L (32.0-37.0) g/dL RDW 15.0 H (11.5-14.5) % Plt Count 86 L (140-440) X 10*3/uL Est GFR (CKD-EPI) (>=60) POC Glucose (mg/dL) 156 H 122 H (70-110) mg/dL Conjugated Bilirubin (0.20-0.40) mg/dL AST (14-35) U/L ALT (10-49) U/L Alkaline Phosphatase (41-126) U/L Total Protein (6.2-8.2) g/dL Albumin (3.8-4.9) g/dL Albumin/Globulin Ratio (1.60-3.17) Ratio 04/25/25 04/25/25 04/25/25 Range/Units 04:12 05:46 06:16 MCHC (32.0-37.0) g/dL RDW (11.5-14.5) % Plt Count (140-440) X 10*3/uL Est GFR (CKD-EPI) 56 L (>=60) POC Glucose (mg/dL) 69 L 118 H (70-110) mg/dL Conjugated Bilirubin 0.62 H (0.20-0.40) mg/dL AST 140 H (14-35) U/L ALT 258 H (10-49) U/L Alkaline Phosphatase 142 H (41-126) U/L Total Protein 5.5 L (6.2-8.2) g/dL Albumin 3.3 L (3.8-4.9) g/dL Albumin/Globulin Ratio 1.50 L (1.60-3.17) Ratio 04/25/25 Range/Units 12:12 MCHC (32.0-37.0) g/dL RDW (11.5-14.5) % Plt Count (140-440) X 10*3/uL Est GFR (CKD-EPI) (>=60) POC Glucose (mg/dL) 136 H (70-110) mg/dL Conjugated Bilirubin (0.20-0.40) mg/dL AST (14-35) U/L ALT (10-49) U/L Alkaline Phosphatase (41-126) U/L Total Protein (6.2-8.2) g/dL Albumin (3.8-4.9) g/dL Albumin/Globulin Ratio (1.60-3.17) Ratio Microbiology - Last 24 Hours (Table) 04/22/25 08:39 Blood Culture - Preliminary Blood Assessment and Plan Plan: 79-year-old male with incidental findings of gallstones on imaging. No abdominal pain. No signs of cholecystitis. No plan for surgical intervention at this time. Continue diet. Continue medical management.
[2025-04-25] MEDS: LORazepam 1 MG/0.5 ML VIAL IV STA (13:45)
--- NOTE | 2025-04-25 15:35 | P.PN ---
Subjective Progress Note Date: 04/25/25 I am seeing the patient for the first time during this hospital admission. Please refer to Dr. Grant's notes for further details. Patient is accompanied with his son. According to the patient and his son the patient has a history of multiple sclerosis that he was told by [facility] and that was many years back and had questionable flareup about 3 years ago but it was due to an infection and required antibiotic and he does not follow-up with a neurologist or is on any disease modifying therapy who has generalized weakness who feels he is doing better. Objective - Vital Signs Vital signs: Vital Signs Temp 99.4 F 04/25/25 07:20 Pulse 74 04/25/25 11:53 Resp 17 04/25/25 08:00 BP 165/84 04/25/25 07:20 Pulse Ox 94 L 04/25/25 07:20 FiO2 Intake & Output 04/24/25 04/25/25 04/25/25 18:59 06:59 18:59 Intake Total 478 118 Output Total 250 900 850 Balance 228 900 732 Intake: Oral 478 118 Output: Urine 250 900 850 Other: Voiding Method Incontinent Incontinent External Catheter External Catheter - Exam General: Sitting in a recliner chair and is not in acute distress. Neuro: The patient is awake, alert oriented to self place and time. Is following simple commands. No aphasia Pupils are round about 3 mm and reactive to light. Visual odell are full to conversation. Extraocular movements intact no nystagmus. No facial weakness. No dysarthria. Motor: The strength seems symmetrical and the strength seems 5 out of 5 throughout. Normal tone and bulk Sensation is normal to touch Cerebellar is normal [id number] bilateral - Labs CBC & Chem 7: 04/25/25 04:12 04/25/25 04:12 Labs: Abnormal Lab Results - Last 24 Hours (Table) 04/24/25 04/24/25 04/25/25 Range/Units 17:27 20:41 04:12 MCHC 31.8 L (32.0-37.0) g/dL RDW 15.0 H (11.5-14.5) % Plt Count 86 L (140-440) X 10*3/uL Est GFR (CKD-EPI) (>=60) POC Glucose (mg/dL) 156 H 122 H (70-110) mg/dL Conjugated Bilirubin (0.20-0.40) mg/dL AST (14-35) U/L ALT (10-49) U/L Alkaline Phosphatase (41-126) U/L Total Protein (6.2-8.2) g/dL Albumin (3.8-4.9) g/dL Albumin/Globulin Ratio (1.60-3.17) Ratio 04/25/25 04/25/25 04/25/25 Range/Units 04:12 05:46 06:16 MCHC (32.0-37.0) g/dL RDW (11.5-14.5) % Plt Count (140-440) X 10*3/uL Est GFR (CKD-EPI) 56 L (>=60) POC Glucose (mg/dL) 69 L 118 H (70-110) mg/dL Conjugated Bilirubin 0.62 H (0.20-0.40) mg/dL AST 140 H (14-35) U/L ALT 258 H (10-49) U/L Alkaline Phosphatase 142 H (41-126) U/L Total Protein 5.5 L (6.2-8.2) g/dL Albumin 3.3 L (3.8-4.9) g/dL Albumin/Globulin Ratio 1.50 L (1.60-3.17) Ratio 04/25/25 Range/Units 12:12 MCHC (32.0-37.0) g/dL RDW (11.5-14.5) % Plt Count (140-440) X 10*3/uL Est GFR (CKD-EPI) (>=60) POC Glucose (mg/dL) 136 H (70-110) mg/dL Conjugated Bilirubin (0.20-0.40) mg/dL AST (14-35) U/L ALT (10-49) U/L Alkaline Phosphatase (41-126) U/L Total Protein (6.2-8.2) g/dL Albumin (3.8-4.9) g/dL Albumin/Globulin Ratio (1.60-3.17) Ratio Microbiology - Last 24 Hours (Table) 04/22/25 08:39 Blood Culture - Preliminary Blood Assessment and Plan Assessment: * Multiple sclerosis by history. Patient presented with fairly acute generalized weakness. Examination is nonfocal. I doubt this is MS exacerbation * Patient had a possible TIA last night with left hemiparesis and mental confusion that resolved this morning. * Hyperthyroidism, likely iatrogenic * Elevated hepatic enzymes with hepatomegaly * Patient states that he has history of MS and he was diagnosed by [facility] many years back but has not followed up with outpatient neurologist and is not on disease modifying therapy. * Tobacco use * Hypomagnesemia * Leukocytosis, rule out pneumonia Plan: * Continue aspirin [address] Gratn, started Plavix 75 mg daily for possible recurrent TIA. I highly recommend dual antiplatelet for 21 days and after 21 days stop aspirin but continue Plavix. * Pending MRI brain. * Recommend complete tobacco cessation. * For abnormal thyroid functions, will defer to IM. * CTA of head and neck revealed mild 33% stenosis of the proximal right ICA caused by atherosclerotic calcifications. Atherosclerotic calcification at the proximal left ICA without flow-limiting stenosis. Mild narrowing of the transverse segment of the right ICA extending to the glenoid segment caused by atherosclerotic calcification. Mild narrowing of the transverse segment of the left ICA extending to the clinoid segment because of atherosclerotic calcification. Otherwise no evidence of flow-limiting stenosis within the head or neck. No aneurysm. * Hemoglobin A1c 8.2. Recommend optimize control of diabetes to target A1c <7.0. * Fasting lipid panel with cholesterol 92, LDL 39, HDL 31, triglycerides 105. Continue Lipitor 20 mg daily. * Previous B12 606, folate borderline 8.0. We will start folate replacement. * Thyroid functions are off, with evidence of hyperthyroidism. We will defer to internal medicine. Time with Patient: Less than 30
--- NOTE | 2025-04-25 16:13 | MR ---
INDICATION: Patient age:Male; 79 years old; Reason for study: Rule out CVA, weakness, slurred speech, MS; PHH. COMPARISON: CT brain 04/22/2025, CTA head and neck 04/22/2025, MR brain 10/26/2021, CT brain 08/05/2016 . TECHNIQUE: Multi planar, multi sequence imaging was performed through the brain. The patient was then given 9 cc of Gadobutrol intravenously and multi planar, T1 fat-saturation images were obtained. FINDINGS: Motion degraded examination. Moderate diffuse cerebral atrophy with corresponding prominence of the sulci and basal cisterns and v entricular system. The boland-white junctions are unremarkable. Diffusion-weighted imaging shows no natalie dence of restricted diffusion to suggest acute/subacute infarct. Intracranial arterial flow voids are maintained. Midline structures show no abnormality. Confluent areas of high T2/FLAIR signal intensit y are again seen within the periventricular and subcortical white matter. Additional involvement of t he central chandler. Lesions are too numerable to count. This is slightly progressed from prior MRI. The susceptibility weighted images do not reveal any evidence for micro-hemorrhage. After administration of gadolinium, no abnormal enhancement is seen. The bone marrow signal is within normal limits. The paranasal sinuses and globes are unremarkable. IMPRESSION: 1. No evidence of intracranial mass, acute/subacute infarct, or abnormal enhancement. 2. Slight progression of advanced periventricular and subcortical white matter changes from prior MRI . This likely represents a combination of known mass and small vessel ischemic disease. No contrast e nhancement to suggest active demyelination. [facility], , 04/25/2025 4:11 PM
--- NOTE | 2025-04-25 17:28 | P.DS ---
Providers Date of admission: 04/22/25 08:15 Expected date of discharge: 04/25/25 Attending physician: Peter Montes De Oca MD Consults: 04/22/25 08:13 Consult Physician Routine Consulting Provider: Ruthann Grant Consult Reason/Comments: TIA, hx of MS Do you want consulting provider notified?: Yes 04/22/25 15:38 Consult Physician Routine Consulting Provider: Desmond Robbins Consult Reason/Comments: Biliary dilation, elevated liver enzymes Do you want consulting provider notified?: Yes Primary care physician: Neri Garg [facility] Course: Sepsis Left lower lobe community-acquired pneumonia Hyperbilirubinemia Elevated liver enzymes Biliary dilation Generalized weakness History of MS, progressive Hypertension Hyperlipidemia Diabetes type 2 BPH Gen: In NAD, non-toxic HEENT: normocephalic, atraumatic, hearing acuity is intant, mucous membranes moist CVS: perfusing all extremities well, bilateral lower extremity pitting edema, regular rate and rhythm, no appreciable murmurs Respiratory: symmetric chest expansion, no accessory muscle use, GI: soft, NTTP, ND, : no suprapubic tenderness, no CVA tenderness MSK/Derm: no rashes, cyanosis Neuro: CN II-XII intact, no motor weakness, Hospital Course: 79-year-old male with medical history of hypertension, hyperlipidemia, MS, diabetes, BPH presented for evaluation of generalized weakness. In the emergency room, patient was febrile to 100.8, 125/65, heart rate 105, 91% on room air. CBC was remarkable for leukocytosis to 14.4 with left shift. Basic metabolic panel showed sodium of 136, CO2 of 20, BUN of 26, creatinine of 1.15. Magnesium was low at 1.4. Liver function test show total bilirubin of 2.0, AST of 474, ALT of 367, alkaline phosphatase of 187. INR is 1.2. Urinalysis shows 4+ glucose, trace protein, trace ketones, moderate blood urine talk screen is positive for benzodiazepines. Influenza A, B, RSV, COVID were negative. EKG demonstrated sinus tachycardia with right axis deviation, occasional PVCs. Chest x-ray shows low lung volumes, appearance of retrocardiac opacity, overall hazy lung appearance. CT angiography shows mild stenosis of the proximal right RCA, calcifications of the left ICA without flow-limiting stenosis, mild narrowing of the transverse segment of the right ICA, left ICA. Brain CT shows no acute intracranial abnormality, but was limited given lack of axial imaging. Gallbladder ultrasound shows borderline hepatomegaly at 17.6 cm with moderate to severe hepatic steatosis, small gallstones, mildly dilated bile duct at 7.8 mm. Patient was admitted for sepsis with left lower lobe community-acquired pneumonia. He was treated with Zosyn, azithromycin. Because of symptoms of left-sided weakness, neurology was also consulted who recommended MRI and dual a ntiplatelet therapy. Patient underwent MRI today which showed mild progression of MS disease, but no active lesions, no evidence of acute or subacute infarct. Patient was evaluated physical therapy and felt to be amenable to go home with home care services. Patient to follow-up with primary care physician, neurologist for ongoing treatment of MS. He was prescribed an additional 2 days of cefdinir to complete a 5-day course of antibiotics for community-acquired pneumonia. Of note, patient was found to have hyperbilirubinemia and elevated liver enzymes with mild biliary dilation, gallstones in the gallbladder. General surgery was consulted and felt that this represented cholelithiasis without any evidence of cholecystitis or choledocholithiasis, recommend he follow-up his LFTs as an ou tpatient with surgical evaluation and return to the emergency room should he develop abdominal pain. I spent 38 minutes coordinating this discharge Patient Condition at Discharge: Good Plan - Discharge Summary New Discharge Prescriptions: New Clopidogrel [Plavix] 75 mg PO DAILY #21 tab Cefdinir 300 mg PO Q12HR #4 cap Continue Atorvastatin [Lipitor] 20 mg PO HS atenoloL 25 mg PO BID Tamsulosin HCl [Flomax] 0.4 mg PO HS Sertraline [Zoloft] 50 mg PO DAILY Aspirin EC [Ecotrin] 325 mg PO DAILY Pantoprazole [Protonix] 40 mg PO DAILY #30 tablet. icosapent ethyL [Icosapent Ethyl] 2 gm PO BID Colchicine 0.6 mg PO DAILY tiZANidine [Zanaflex] 2 mg PO TID PRN PRN Reason: Muscle Pain Dulaglutide [Trulicity] 3 mg SQ TH metFORMIN HCL ER [Glucophage XR] 500 mg PO BID Dapagliflozin Propanediol [Farxiga] 10 mg PO DAILY Insulin Glargine,Hum.rec.anlog [Lantus Solostar Pen] 30 units SQ HS Levothyroxine Sodium [Synthroid] 137 mcg PO DAILY Folic Acid 1 mg PO DAILY Ergocalciferol (Vitamin D2) [Drisdol (GEQ) 1,250 MCG (50,000 IU)] 1,250 mcg PO Q7D Discharge Medication List Aspirin EC [Ecotrin] 325 mg PO DAILY 06/20/16 [History] Atorvastatin [Lipitor] 20 mg PO HS 06/20/16 [History] Sertraline [Zoloft] 50 mg PO DAILY 06/20/16 [History] Tamsulosin HCl [Flomax] 0.4 mg PO HS 06/20/16 [History] atenoloL 25 mg PO BID 06/20/16 [History] Pantoprazole [Protonix] 40 mg PO DAILY #30 tablet.dr 08/08/16 [Rx] metFORMIN HCL ER [Glucophage XR] 500 mg PO BID 10/24/21 [History] Dapagliflozin Propanediol [Farxiga] 10 mg PO DAILY 01/28/22 [History] Colchicine 0.6 mg PO DAILY 07/12/22 [History] icosapent ethyL [Icosapent Ethyl] 2 gm PO BID 07/12/22 [History] Dulaglutide [Trulicity] 3 mg SQ TH 04/22/25 [History] Ergocalciferol (Vitamin D2) [Drisdol (GEQ) 1,250 MCG (50,000 IU)] 1,250 mcg PO Q7D 04/22/25 [History] Folic Acid 1 mg PO DAILY 04/22/25 [History] Insulin Glargine,Hum.rec.anlog [Lantus Solostar Pen] 30 units SQ HS 04/22/25 [History] Levothyroxine Sodium [Synthroid] 137 mcg PO DAILY 04/22/25 [History] tiZANidine [Zanaflex] 2 mg PO TID PRN 04/22/25 [History] Cefdinir 300 mg PO Q12HR #4 cap 04/25/25 [Rx] Clopidogrel [Plavix] 75 mg PO DAILY #21 tab 04/25/25 [Rx] Follow up Appointment(s)/Referral(s): Neri Garg DO [Primary Care Provider] - 1-2 days [facility] Visiting Nurse, [NON-STAFF] - As Needed Activity/Diet/Wound Care/Special Instructions: PT'S HOME MED IS IN MED ROOM. GIVE UPON DISCHARGE Discharge Disposition: HOME WITH HOME HEALTH SERVICES
[2025-04-25 17:36] LABS: Glucose,Whole Blood 174 mg/dL (70-110)
[2025-04-25 20:09] VITALS: BP 136/73; PULSE 70; RESP 17; TEMP 98.5
[2025-04-25 20:46] LABS: Glucose,Whole Blood 200 mg/dL (70-110)
--- NOTE | 2025-04-26 00:54 | EEG ---
ELECTROENCEPHALOGRAM REPORT CLINICAL HISTORY: This is an 79-year-old gentleman with altered mental status. The video EEG is obtained to evaluate for seizure epileptiform activity. RELEVANT MEDICATIONS: Morphine and Zanaflex. EEG TYPE: This is a routine 21-channel EEG with video using the 10/20 electrode placement system. DESCRIPTION: Wakefulness is only obtained. During awake state, the posterior-dominant rhythm consists of [id number] voltage of 10 to 10.5 hertz activity that is well modulated and well sustained. There is no physiological stage 2 sleep architecture. There is no focal slowing. INTERICTAL AND ICTAL: None. ACTIVATION PROCEDURES: Photic stimulation did not evoke a posterior driving response. There is no abnormality during the photic stimulation. Hyperventilation is not performed. CLINICAL INTERPRETATION: This is a normal routine EEG during the awake state. There is no focal slowing, epileptiform discharges or seizure on the EEG. A normal routine EEG does not rule out underlying epilepsy. Clinical correlation is recommended. ADRIANNA / HERNAN: [id number] /
--- NOTE | 2025-04-27 14:04 | CDI ---
Documentation Clarification Form Date: 04/27/2025 01:52:33 PM From: Alix Becker Phone: Admit Date: 04/22/2025 08:15:00 AM Patient Name: Fco Sarkar Visit Number: [id number] Discharge Date: 04/25/2025 10:15:00 PM ATTENTION: The Clinical Documentation Specialists (CDI) and [facility] Coding Staff appreciate your assistance in clarifying documentation. Please respond to the clarification below the line at the bottom and electronically sign. The CDI & [facility] Coding staff will review the response and follow-up if needed. Please note: Queries are made part of the Legal Health Record. If you have any questions, please contact the author of this message via ITS. Doctor/Provider: Peter Montes De Oca Hyperthyroidism, likely iatrogenic is documented per Consult 04/22 and Progress Notes 04/23-04/25 and patient is noted to take Levothyroxine Sodium [Synthroid] 137 mcg. Please clarify if there is a relationship between the diagnosis and medication. History/Risk Factors: 79yo M, Sepsis, LLL CAP, hyperbilirubinemia, biliary dilation, HTN, HLD, DMII, generalized weakness, MS, hypomag, in house TIA, smoker Clinical Indicators: TSH <0.015 L (0.465-4.680) mIU/L Treatment: Neurology consulted by emergency room, recommend TSH/FT4, ordered. Neurology Consult Note: 04/22 Thyroid functions are off, with evidence ofhyperthyroidism. We will defer to internal medicine. Neurology will follow. Thank you for the consult. Please clarify the relationship, if any, which is clinically appropriate for this patient: [ ] Iatrogenic Hyperthyroidism is due to Levothyroxine Sodium [Synthroid] 137 mcg PO DAILY [ ] Iatrogenic Hyperthyroidism is not due to Levothyroxine Sodium [Synthroid] 137 mcg PO DAILY [ x ] Other explanation of clinical findings (please specify) FT4 is in normal range, TSH takes time to correct. [ ] Unable to determine (no explanation for clinical findings) (Template Last Revised: December 2020) MTDD
== END 2025-04-25 22:15 | disposition home health service (06) | DRG 871 ==
LOC: EC 05:43 → 3SCARD 08:15 → 4SSUR 04-23 12:50 → 6NMEDSUR 04-23 15:51
PROVIDERS: ADMIT Internal Medicine; ATTEND Internal Medicine
DX: A41.9 Sepsis, unspecified organism (principal); J18.9 Pneumonia, unspecified organism; G45.9 Transient cerebral ischemic attack, unspecified; G35 Multiple sclerosis; E11.9 Type 2 diabetes mellitus without complications; I10 Essential (primary) hypertension; K76.0 Fatty (change of) liver, not elsewhere classified; Z79.4 Long term (current) use of insulin; K83.8 Other specified diseases of biliary tract; R16.0 Hepatomegaly, not elsewhere classified; E80.6 Other disorders of bilirubin metabolism; F17.210 Nicotine dependence, cigarettes, uncomplicated; E83.42 Hypomagnesemia; K80.20 Calculus of gallbladder without cholecystitis without obstruction; I25.10 Atherosclerotic heart disease of native coronary artery without angina pectoris; N40.0 Benign prostatic hyperplasia without lower urinary tract symptoms; E78.5 Hyperlipidemia, unspecified; R47.81 Slurred speech; R53.1 Weakness; R41.0 Disorientation, unspecified; Z79.82 Long term (current) use of aspirin; Z79.84 Long term (current) use of oral hypoglycemic drugs; Z79.85 Long-term (current) use of injectable non-insulin antidiabetic drugs; Z79.890 Hormone replacement therapy; Z79.899 Other long term (current) drug therapy; Z71.6 Tobacco abuse counseling; Z86.718 Personal history of other venous thrombosis and embolism; Z95.5 Presence of coronary angioplasty implant and graft
CPT/HCPCS: 36415; 70450; 70496; 70498; 70553; 71045; 76705; 80048; 80053; 80076; 80306; 81001; 82248; 82550; 83036; 83735; 84145; 84439; 84443; 85025; 85610; 85730; 87040; 87070; 87205; 87449; 87636; 93005; 94640; 94760; 95816; 96361; 96365; 96366; 96367; 96368; 96372; 96375; 96376; 99291